=== PATIENT | male | born 1965 | race Caucasian/White ===

== ENCOUNTER 2016-03-18 18:32 | Inpatient (IN) | payer OTHER ==
--- NOTE | 2016-03-18 20:33 | PDOC ---
History of Present Illness - General History Source: Patient <Karri Musa - Last Filed: 03/18/16 20:48> - General History Source: Care Provider Exam Limitations: Clinical Condition - History of Present Illness Initial Comments: 03/18/16 20:56 The patient is a 50 year old male with a pertinent PMH of schizophrenia, bipolar , cleft palate who presents to the ED today with generalized weakness and s/p fall. As per periodontist, the patient is unable to stand and is frequently falling. His periodontist also reports the patient is sleeping more often than normal and that is appears to have less energy than normal. The patent resides at a skilled nursing. 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 His periodontist reports his primary care physician had him report to [facility] ED. Modern Greek Studies Professor also reports urinary incontinence. Allergies: NKDA PCP: Dr. 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, ORGANIC BRAIN DAMAGE, PARANOID SCHIZOPHRENIA) Seizures: No Thyroid Disease: No - Surgical History Abdominal Surgery: Yes (HERNIA REPAIR) Cardiac Surgery: No Lung Surgery: Yes (PNEUMOTHORAX) Neurologic Surgery: No - Psycho/Social/Smoking Cessation Hx Anxiety: No Suicidal Ideation: No Smoking History: Never smoked Have you smoked in the past 12 months: No If you are a former smoker, when did you quit?: 1999 Information on smoking cessation initiated: No Hx Alcohol Use: No Drug/Substance Use Hx: No Substance Use Type: None Hx Substance Use Treatment: No <Karri Musa - Last Filed: 03/18/16 20:48> <Mervat Franklin - Last Filed: 03/18/16 21:24> - Past Medical History Allergies/Adverse Reactions: Allergies Allergy/AdvReac Type Severity Reaction Status Date / Time No Known Allergies Allergy Verified 03/18/16 18:39 Home Medications: Ambulatory Orders Desmopressin Acetate 0.1 mg PO BID #60 tablet 07/26/14 Bupropion HCl [Wellbutrin Xl -] 150 mg PO DAILY 05/23/15 Clonazepam [Klonopin -] 0.5 mg PO HS PRN 05/23/15 Clozapine 400 mg PO BID 05/23/15 Ferrous Sulfate [Feosol] 325 mg PO BID 05/23/15 [place] Carbonate [Eskalith -] 300 mg PO DAILY 05/23/15 Mag Hydrox/Al Hydrox/Simeth [Antacid-[place]igas Liquid] 355 ml PO PRN 05/23/15 Megestrol Acetate Oral Susp [Megace Oral Suspension -] 800 mg PO DAILY 05/23/15 Valproate Sodium Liquid [Depakene Oral Solution -] 500 mg PO BID 05/23/15 Omeprazole [Prilosec (RX)] 40 mg PO BID #0 05/26/15 Review of Systems - Review of Systems Able to Perform ROS?: Yes Comments:: 03/18/16 20:58 *As per periodontist CONSTITUTIONAL: +Generalized weakness. Absent: fever, chills, diaphoresis, loss of appetite HEENT: Absent: rhinorrhea, nasal congestion, throat pain, throat swelling, difficulty swallowing, mouth swelling, ear pain, eye pain, visual Changes CARDIOVASCULAR: Absent: chest pain, syncope, palpitations, irregular heart rate, lightheadedness , peripheral edema RESPIRATORY: Absent: cough, shortness of breath, dyspnea with exertion, orthopnea, wheezing, stridor, hemoptysis GASTROINTESTINAL: +groin pain, abdominal distension. Absent: nausea, vomiting, diarrhea, constipation, melena, hematochezia GENITOURINARY: Absent: dysuria, frequency, urgency, hesitancy, hematuria, flank pain, genital pain MUSCULOSKELETAL: Absent: myalgia, arthralgia, joint swelling SKIN: Absent: rash, itching, pallor NEUROLOGIC: +Urinary incontinence. Absent: headache, focal weakness or paresthesias, dizziness, seizure, bowel incontinence PSYCHIATRIC: Absent: anxiety, depression, suicidal or homicidal ideation, hallucinations. 03/18/16 21:00 03/18/16 21:24 <Mervat Franklin - Last Filed: 03/18/16 21:24> *Physical Exam - Vital Signs Last Vital Signs Temp Pulse Resp BP Pulse Ox 98 F 79 18 114/57 98 03/18/16 18:38 03/18/16 18:38 03/18/16 18:38 03/18/16 18:38 03/18/16 18:38 <Karri Musa - Last Filed: 03/18/16 20:48> - Vital Signs Last Vital Signs Temp Pulse Resp BP Pulse Ox 98 F 79 18 114/57 98 03/18/16 18:38 03/18/16 18:38 03/18/16 18:38 03/18/16 18:38 03/18/16 18:38 - Physical Exam Comments: 03/18/16 21:00 GENERAL: Well developed, well nourished. Awake and alert. No acute distress. HEENT: Normocephalic, atraumatic. PERRLA, EOMI. No conjunctival pallor. Sclera are non- icteric. Moist mucous membranes. Oropharynx is clear. NECK: Supple. Full ROM. No JVD. Carotid pulses 2+ and symmetric, without bruits. No thyromegaly. No lymphadenopathy. CARDIOVASCULAR: Regular rate and rhythm. No murmurs, rubs, or gallops. Distal pulses are 2+ and symmetric. PULMONARY: No evidence of respiratory distress. Lungs clear to auscultation bilaterally. No wheezing, rales or rhonchi. ABDOMINAL: Right sided inguinal hernia nonreducible 8cm x 4cm. Soft. Non-tender. No rebound or guarding. Normoactive bowel sounds. MUSCULOSKELETAL Normal range of motion at all joints. No bony deformities or tenderness. No CVA tenderness. EXTREMITIES: No cyanosis. No clubbing. No edema. No calf tenderness. SKIN: Warm and dry. Normal capillary refill. No rashes. No jaundice. NEUROLOGICAL: AOx 2. Cranial nerves 2-12 intact. Answers simple questions appropriately. Moving all extremities. PSYCHIATRIC: Cooperative. Good eye contact. Appropriate mood and affect. <Mervat Franklin - Last Filed: 03/18/16 21:24> Heart Score/ECG Review - ECG Impressions Comment:: 03/18/16 21:21 NSR @ 84 bpm Nonspecific T wave abnormality Abnormal ECG <Mervat Franklin - Last Filed: 03/18/16 21:24> ED Treatment Course - LABORATORY CBC & Chemistry Diagram: 03/18/16 20:50 03/18/16 20:50 <Mervat Franklin - Last Filed: 03/18/16 21:24> Medical Decision Making - Medical Decision Making 03/18/16 20:48 Dr. Musa: The scribe's documentation has been prepared under my direction and personally reviewed by me in its entirery. I confirm that the note above accurately reflects all work, treatment, procedures, and medical decision making performed by me. <Karri Musa - Last Filed: 03/18/16 20:48> - Medical Decision Making 03/18/16 20:[address] Chana Veloz at 20:45. Awaiting call back. Dr. Veloz called back at 20:46 and patient's case was discussed. <Mervat Franklin - Last Filed: 03/18/16 21:24> *DC/Admit/Observation/Transfer - Discharge Dispostion Admit: Yes <Karri Musa - Last Filed: 03/18/16 20:48> - Attestations Scribe Attestion: 03/18/16 21:01 Documentation prepared by Mevrat Franklin, acting as medical sales consultant for Karri Musa MD/DO. <Mervat Franklin - Last Filed: 03/18/16 21:24> Diagnosis at time of Disposition: Mental retardation, Dehydration
[2016-03-18] MEDS ORDERED: SODIUM CHLORIDE 1,000 ML IV STA (20:36)
[2016-03-18 21:08] LABS: EOSINOPHIL 0.8 % (0-4.5); MCH 28.8 pg (25.7-33.7); MCHC 32.6 g/dl (32.0-35.9); MEAN CELL VOLUME 88.2 fl (80-96); MEAN PLT VOLUME 8.4 fl (7.5-11.1); NEUTROPHILS 63.6 % (42.8-82.8); PLATELET COUNT 247 K/MM3 (134-434); RDW 15.7 % (11.9-15.9); WHITE BLOOD COUNT 10.2 K/mm3 (4.0-10.0)
[2016-03-18 21:10] LABS: URINE APPEARANCE CLEAR; URINE BILIRUBIN NEGATIVE (NEGATIVE); URINE COLOR AMBER; URINE GLUCOSE (UA) NEGATIVE (NEGATIVE); URINE KETONE NEGATIVE (NEGATIVE); URINE LEUK ESTERASE NEGATIVE (NEGATIVE); URINE NITRITE NEGATIVE (NEGATIVE); URINE PROTEIN NEGATIVE (NEGATIVE); URINE UROBILINOGEN 2.0 E.U/dl E.U./dl (0.2-1.0)
[2016-03-18 21:11] LABS: URINE BLOOD 1+ (NEGATIVE)
[2016-03-18 21:12] LABS: URINE MUCUS MODERATE; URINE RBC 34 /hpf (0-3); URINE WBC 4 /hpf (3-5)
[2016-03-18 21:24] LABS: INR 1.14 (0.82-1.09); PROTHROMBIN TIME (PATIENT) 12.6 SEC (9.98-11.88)
[2016-03-18 21:37] LABS: ALBUMIN 3.1 g/dl (3.4-5.0); ANION GAP 8 (8-16); BILIRUBIN,TOTAL 0.5 mg/dL (0.2-1.0); CALCIUM 8.7 mg/dL (8.5-10.1); CO2 27 mmol/L (21-32); CREATININE 0.8 mg/dL (0.7-1.3); GLUCOSE,RANDOM 97 mg/dL (74-106); SGOT/AST 12 U/L (15-37); SGPT/ALT 13 U/L (12-78); TOT PROT 7.7 g/dl (6.4-8.2)
[2016-03-18 21:38] LABS: ALK PHOS 85 U/L (45-117)
[2016-03-18] MEDS ORDERED: LORAZEPAM CARPU-JECT 2 MG/ML DISP.SYRIN IVPUSH ONE (22:37)
[2016-03-18] MEDS ORDERED: LORAZEPAM CARPU-JECT 2 MG/ML DISP.SYRIN ONE (22:37)
[2016-03-19] MEDS ORDERED: clonazePAM 0.5 MG TABLET PO PRN (00:41)
--- NOTE | 2016-03-19 00:41 | HP ---
Admitting History and Physical - Admission Chief Complaint: Fatigue/unsteady gait History of Present Illness: Pt is a 50 y/o male w/ a schizophrenia/bipolar dz who lives in a [place] [facility]. Pt was seen in my office today bc of inability to stand for the past few days w / unsteady gait. It has also been noted that he has been more fatigued and sleeping more than usual. However they deny any fever/chills. Pt is also followed for b/l inguinal hernias. pt denies any abdominal pain/nausea/ vomiting. 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: Dementia, Seizure, Other (OBS) Pulmonary: Yes: Pneumonia Gastrointestinal: Yes: Constipation, GERD, Other (VIVAR'S, SEVERE ESOPHAGITIS DUE TO NON COMPLIANCE,HX CLEFT PALATE) Psych: Yes: Psychosis, Schizophrenia, Other (PARANOIA) - Past Surgical History Past Surgical History: Yes: Upper Endoscopy - Smoking History Smoking history: Never smoked Have you smoked in the past 12 months: No If you are a former smoker, when did you quit?: 1999 - Alcohol/Substance Use Hx Alcohol Use: No - Social History ADL: Support Services History of Recent Travel: No Home Medications - Allergies Allergies/Adverse Reactions: Allergies Allergy/AdvReac Type Severity Reaction Status Date / Time No Known Allergies Allergy Verified 03/18/16 18:39 - Home Medications Home Medications: Ambulatory Orders Desmopressin Acetate 0.1 mg PO BID #60 tablet 07/26/14 Bupropion HCl [Wellbutrin Xl -] 150 mg PO DAILY 05/23/15 Clonazepam [Klonopin -] 0.5 mg PO HS PRN 05/23/15 Clozapine 200 mg PO BID 05/23/15 Ferrous Sulfate [Feosol] 325 mg PO BID 05/23/15 [place] Carbonate [Eskalith -] 300 mg PO DAILY 05/23/15 Mag Hydrox/Al Hydrox/Simeth [Antacid-Antigas Liquid] 355 ml PO PRN 05/23/15 Megestrol Acetate Oral Susp [Megace Oral Suspension -] 800 mg PO DAILY 05/23/15 Valproate Sodium Liquid [Depakene Oral Solution -] 500 mg PO BID 05/23/15 Omeprazole [Prilosec (RX)] 40 mg PO BID #0 05/26/15 Bromocriptine Mesylate 2.5 tab PO HS 03/19/16 Loratadine 10 tab PO DAILY 03/19/16 Family Disease History - Family Disease History Family History: Unable to Obtain (Schizophrenia/bipolar) Review of Systems Unable to obtain ROS, reason: Schizophrenia/bipolar Physical Examination Vital Signs: Vital Signs Temperature 98 F 03/18/16 18:38 Pulse Rate 79 03/18/16 18:38 Respiratory Rate 18 03/18/16 18:38 Blood Pressure 114/57 03/18/16 18:38 O2 Sat by Pulse Oximetry (%) 98 03/18/16 18:38 HENT: Yes: WNL Neck: Yes: Supple Cardiovascular: Yes: WNL, Regular Rate and Rhythm Respiratory: Yes: WNL, Regular, CTA Bilaterally Gastrointestinal: Yes: Normal Bowel Sounds, Soft, Other ((+) b/l inguinal hernias. Hernia on RT nonreducible (-) tenderness) Musculoskeletal: Yes: WNL Extremities: Yes: WNL Edema: No Neurological: Yes: WNL, Alert, Oriented Problem List - Problems (1) Unsteady gait Assessment/Plan: Neuro eval R/O infectious etiology Start IV levaquin Code(s): R26.81 - UNSTEADINESS ON FEET (2) Inguinal hernia Assessment/Plan: As per surgery Code(s): K40.90 - UNIL INGUINAL HERNIA, W/O OBST OR GANGR, NOT SPCF RECUR (3) Schizophrenia Assessment/Plan: Cont meds Code(s): F20.9 - SCHIZOPHRENIA, UNSPECIFIED
[2016-03-19 04:51] VITALS: BMI 16.7
[2016-03-19 08:05] LABS: BASOPHIL 0.5 % (0-2.0); EOSINOPHIL 1.1 % (0-4.5); MCH 30.3 pg (25.7-33.7); MEAN PLT VOLUME 8.2 fl (7.5-11.1); NEUTROPHILS 67.1 % (42.8-82.8); PLATELET COUNT 238 K/MM3 (134-434); RDW 15.6 % (11.9-15.9); WHITE BLOOD COUNT 8.8 K/mm3 (4.0-10.0)
[2016-03-19 08:13] LABS: ALBUMIN 2.8 g/dl (3.4-5.0); ANION GAP 6 (8-16); BILIRUBIN,TOTAL 0.5 mg/dL (0.2-1.0); CALCIUM 8.9 mg/dL (8.5-10.1); CO2 28 mmol/L (21-32); CREATININE 0.7 mg/dL (0.7-1.3); GLUCOSE,RANDOM 95 mg/dL (74-106); SGOT/AST 8 U/L (15-37); TOT PROT 6.7 g/dl (6.4-8.2)
[2016-03-19 08:30] LABS: ALK PHOS 77 U/L (45-117); SGPT/ALT 11 U/L (12-78)
[2016-03-19] MEDS ORDERED: CLOZAPINE 200 MG PO SCH (10:00)
[2016-03-19] MEDS ORDERED: PT OWN MED DRAWER 7, Y5N ONE (11:49)
[2016-03-19] MEDS: LITHIUM CARBONATE 300 MG CAPSULE (FP) PO SCH (12:00)
[2016-03-19] MEDS: DESMOPRESSIN ACETATE 0.1 MG TABLET PO SCH ×2 (12:00→21:52)
[2016-03-19] MEDS: MEGESTROL ACETATE 400 MG/10 ML UNIT DOSE CUP PO SCH (12:00)
[2016-03-19] MEDS: VALPROATE SODIUM 250 MG/5 ML UNIT DOSE CUP PO SCH ×2 (12:00→21:52)
[2016-03-19] MEDS: PANTOPRAZOLE SOD 40 MG SUSPENSION PACKET PO SCH ×2 (12:00→21:51)
[2016-03-19] MEDS: FERROUS SO4 325 MG TABLET (FP) PO SCH ×2 (12:00→21:51)
[2016-03-19] MEDS: HEPARIN NA (PORCINE) 5,000 UNITS/ML 1ML VIAL SQ SCH ×2 (12:37→21:51)
--- NOTE | 2016-03-19 13:56 | EKG ---
Test Reason : Blood Pressure : / mmHG Vent. Rate : 084 BPM Atrial Rate : 084 BPM P-R Int : 142 ms QRS Dur : 088 ms QT Int : 342 ms P-R-T Axes : 068 070 056 degrees QTc Int : 404 ms NORMAL SINUS RHYTHM NONSPECIFIC T WAVE ABNORMALITY ABNORMAL ECG Confirmed by YARITZA ANTONIO MD ([id number]) on 03/19/2016 1:55:58 PM Referred By: Confirmed By:YARITZA ANTONIO MD
--- NOTE | 2016-03-19 15:09 | CONSULT ---
Consult Consult Specialty:: Surgery Reason for Consultation:: INGUINAL HERNIA - History of Present Illness Chief Complaint: RIGHT INGUINAL BULGE History of Present Illness: The patient is a 50 year old male with a pertinent PMH of schizophrenia, bipolar , cleft palate who presents to the ED today with generalized weakness and s/p fall. Patient is well known to the undersigned with history of partially reducible RIH containing bowel. Was advised previously to undergo elective RIH repair but refused. As per speed operator, the patient is unable to stand and is frequently falling. His speed operator also reports the patient is sleeping more often than normal and that is appears to have less energy than normal. The patent resides at a usp. Bone Worker also reports hernia in RLQ has increased and hernia in LLQ has decreased. His speed operator reports his primary care physician had him report to [facility] ED. Bone Worker also reports urinary incontinence. 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, Other (OBS) Pulmonary: Yes: Pneumonia Gastrointestinal: Yes: Constipation, GERD, Other (VIVAR'S, SEVERE ESOPHAGITIS DUE TO NON COMPLIANCE,HX CLEFT PALATE) Psych: Yes: Psychosis, Schizophrenia, Other (PARANOIA) - Past Surgical History Past Surgical History: Yes: Upper Endoscopy - Alcohol/Substance Use Hx Alcohol Use: No - Smoking History Smoking history: Never smoked Have you smoked in the past 12 months: No If you are a former smoker, when did you quit?: 1999 - Social History Usual Living Arrangement: Custodial ADL: Support Services History of Recent Travel: No Home Medications - Allergies Allergies/Adverse Reactions: Allergies Allergy/AdvReac Type Severity Reaction Status Date / Time No Known Allergies Allergy Verified 03/18/16 18:39 - Home Medications Home Medications: Ambulatory Orders Desmopressin Acetate 0.1 mg PO BID #60 tablet 07/26/14 Bupropion HCl [Wellbutrin Xl -] 150 mg PO DAILY 05/23/15 Clonazepam [Klonopin -] 0.5 mg PO HS PRN 05/23/15 Clozapine 200 mg PO BID 05/23/15 Ferrous Sulfate [Feosol] 325 mg PO BID 05/23/15 [place] Carbonate [Eskalith -] 300 mg PO DAILY 05/23/15 Mag Hydrox/Al Hydrox/Simeth [Antacid-Antigas Liquid] 355 ml PO PRN 05/23/15 Megestrol Acetate Oral Susp [Megace Oral Suspension -] 800 mg PO DAILY 05/23/15 Valproate Sodium Liquid [Depakene Oral Solution -] 500 mg PO BID 05/23/15 Omeprazole [Prilosec (RX)] 40 mg PO BID #0 05/26/15 Bromocriptine Mesylate 2.5 tab PO HS 03/19/16 Loratadine 10 tab PO DAILY 03/19/16 Physical Exam Vital Signs: Vital Signs Temperature 99.1 F 03/19/16 14:33 Pulse Rate 106 H 03/19/16 14:33 Respiratory Rate 20 03/19/16 14:33 Blood Pressure 132/66 03/19/16 14:33 O2 Sat by Pulse Oximetry (%) 98 03/19/16 00:43 Constitutional: Yes: No Distress Eyes: Yes: Conjunctiva Clear HENT: Yes: Normocephalic Neck: Yes: Supple Cardiovascular: Yes: Regular Rate and Rhythm Respiratory: Yes: CTA Bilaterally Gastrointestinal: Yes: Normal Bowel Sounds, Soft, Other (partially reducible right inguinal hernia, non-tender) ...Rectal Exam: Yes: Deferred Neurological: Yes: Alert Labs: CBC, BMP 03/19/16 06:00 03/19/16 06:00 Imaging - Results Cat Scan: Report Reviewed, Image Reviewed Problem List - Problems (1) Inguinal hernia Assessment/Plan: Inguinal hernia repair can be done during this current hospital stay if patient or HCP agrees, or as an outpatient procedure. Code(s): K40.90 - UNIL INGUINAL HERNIA, W/O OBST OR GANGR, NOT SPCF RECUR
[2016-03-19] MEDS ORDERED: cloZAPine 100 MG TABLET PO SCH (17:01)
[2016-03-19] MEDS ORDERED: cloZAPine 100 MG TABLET PO ONE (17:15)
[2016-03-19] MEDS ORDERED: ACETAMINOPHEN 325 MG TABLET (FP) PO PRN (18:09)
--- NOTE | 2016-03-19 19:25 | CONSULT ---
Consult Consult Specialty:: Neurology - History of Present Illness History of Present Illness: 50 yo with reported schizophrenia admitted due to lethargy. Today he is bright and alert and simply wants his rings and sweatpants he believes he left at the hospital during his last inpatient stay. 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, Other (OBS) Pulmonary: Yes: Pneumonia Gastrointestinal: Yes: Constipation, GERD, Other (VIVAR'S, SEVERE ESOPHAGITIS DUE TO NON COMPLIANCE,HX CLEFT PALATE) Psych: Yes: Psychosis, Schizophrenia, Other (PARANOIA) - Past Surgical History Past Surgical History: Yes: Upper Endoscopy - Alcohol/Substance Use Hx Alcohol Use: No - Smoking History Smoking history: Never smoked Have you smoked in the past 12 months: No If you are a former smoker, when did you quit?: 1999 - Social History Usual Living Arrangement: Shelter ADL: Support Services History of Recent Travel: No Home Medications - Allergies Allergies/Adverse Reactions: Allergies Allergy/AdvReac Type Severity Reaction Status Date / Time No Known Allergies Allergy Verified 03/18/16 18:39 - Home Medications Home Medications: Ambulatory Orders Desmopressin Acetate 0.1 mg PO BID #60 tablet 07/26/14 Bupropion HCl [Wellbutrin Xl -] 150 mg PO DAILY 05/23/15 Clonazepam [Klonopin -] 0.5 mg PO HS PRN 05/23/15 Clozapine 200 mg PO BID 05/23/15 Ferrous Sulfate [Feosol] 325 mg PO BID 05/23/15 [place] Carbonate [Eskalith -] 300 mg PO DAILY 05/23/15 Mag Hydrox/Al Hydrox/Simeth [Antacid-[place]igas Liquid] 355 ml PO PRN 05/23/15 Megestrol Acetate Oral Susp [Megace Oral Suspension -] 800 mg PO DAILY 05/23/15 Valproate Sodium Liquid [Depakene Oral Solution -] 500 mg PO BID 05/23/15 Omeprazole [Prilosec (RX)] 40 mg PO BID #0 05/26/15 Bromocriptine Mesylate 2.5 tab PO HS 03/19/16 Loratadine 10 tab PO DAILY 03/19/16 Physical Exam Vital Signs: Vital Signs Temperature 101.3 F H 03/19/16 16:54 Pulse Rate 102 H 03/19/16 16:54 Respiratory Rate 20 03/19/16 16:54 Blood Pressure 116/73 03/19/16 16:54 O2 Sat by Pulse Oximetry (%) 98 03/19/16 00:43 Constitutional: Yes: Well Nourished, No Distress, Calm HENT: Yes: Atraumatic Neck: Yes: Supple Cardiovascular: Yes: Regular Rate and Rhythm Respiratory: Yes: Regular Gastrointestinal: Yes: Soft Neurological: Yes: Alert, Cran Nerves II-XII Intact. No: Aphasia, Dysarthria, Facial Droop, Weakness (Unable to assess memory or sensory exam due to the patient's inablity to cooperate with the examination.) Psychiatric: Yes: Alert, Oriented Labs: CBC, BMP 03/19/16 06:00 03/19/16 06:00 Assessment/Plan Admitted with acute lethargy that appears to have resolved, there is no clinical evidence of a new neurological deficit, thus further neuro- investigative studies are not needed. P Continue supportive medical care and neurologically stable for discharge when medically indicated.
[2016-03-19] MEDS: LEVOFLOXACIN 500 MG IVPB 100 ML IVPB SCH (20:22)
[2016-03-19] MEDS: BROMOCRIPTINE MESYLATE 2.5 MG TABLET PO SCH (21:51)
[2016-03-20] MEDS ORDERED: PT OWN MED DRAWER 7, Y5N ONE (12:05)
[2016-03-20] MEDS: MEGESTROL ACETATE 400 MG/10 ML UNIT DOSE CUP PO SCH (12:09)
[2016-03-20] MEDS: LEVOFLOXACIN 500 MG IVPB 100 ML IVPB SCH (12:10)
[2016-03-20] MEDS: LITHIUM CARBONATE 300 MG CAPSULE (FP) PO SCH (12:12)
[2016-03-20] MEDS: FERROUS SO4 325 MG TABLET (FP) PO SCH ×2 (12:12→21:39)
[2016-03-20] MEDS: HEPARIN NA (PORCINE) 5,000 UNITS/ML 1ML VIAL SQ SCH ×2 (12:13→21:39)
[2016-03-20] MEDS: DESMOPRESSIN ACETATE 0.1 MG TABLET PO SCH ×2 (12:14→21:39)
[2016-03-20] MEDS: VALPROATE SODIUM 250 MG/5 ML UNIT DOSE CUP PO SCH ×2 (12:14→21:39)
[2016-03-20] MEDS: PANTOPRAZOLE SOD 40 MG SUSPENSION PACKET PO SCH ×2 (12:14→21:39)
--- NOTE | 2016-03-20 16:49 | PN ---
Progress Note, Physician History of Present Illness: 50 yo with reported schizophrenia admitted due to lethargy. Today he resting quietly in no acute distress with no acute neurological problems - Current Medication List Current Medications: Active Medications Acetaminophen (Tylenol -) 650 mg PO Q6H PRN PRN Reason: PAIN/FEVER OVER 100.5 Bromocriptine Mesylate (Parlodel -) 2.5 mg PO HS [facility] Last Admin: 03/19/16 21:51 Dose: 2.5 mg Bupropion HCl (Wellbutrin Xl -) 150 mg PO DAILY [facility] Last Admin: 03/20/16 12:13 Dose: 150 mg Clonazepam (Klonopin -) 0.5 mg PO HS PRN PRN Reason: ANXIETY Clozapine (Clozaril -) 200 mg PO BID [facility] Desmopressin Acetate (Ddavp -) 0.1 mg PO BID [facility] Last Admin: 03/20/16 12:14 Dose: 0.1 mg Ferrous Sulfate (Feosol -) 325 mg PO BID [facility] Last Admin: 03/20/16 12:12 Dose: 325 mg Heparin Sodium (Porcine) (Heparin -) 5,000 unit SQ BID [facility] Last Admin: 03/20/16 12:13 Dose: 5,000 unit Levofloxacin (Levaquin 500 Mg Premixed Ivpb -) 100 mls @ 100 mls/hr IVPB DAILY [facility] Last Admin: 03/20/16 12:10 Dose: 100 mls/hr [place] Carbonate (Eskalith -) 300 mg PO DAILY [facility] Last Admin: 03/20/16 12:12 Dose: 300 mg Megestrol Acetate (Megace Oral Suspension -) 800 mg PO DAILY [facility] Last Admin: 03/20/16 12:09 Dose: 800 mg Pantoprazole Sodium (Protonix Packets For Oral Suspension -) 40 mg PO BID [facility] Last Admin: 03/20/16 12:14 Dose: 40 mg Valproate Sodium (Depakene -) 500 mg PO BID [facility] Last Admin: 03/20/16 12:14 Dose: 500 mg - Objective Vital Signs: Vital Signs Temperature 98.0 F 03/20/16 14:00 Pulse Rate 80 03/20/16 14:00 Respiratory Rate 18 03/20/16 14:00 Blood Pressure 113/70 03/20/16 05:29 O2 Sat by Pulse Oximetry (%) 98 01/06/17 21:00 Neurological: Yes: WNL, Alert, Oriented, Cran Nerves II-XII Intact. No: Aphasia , Ataxia, Loss of Sensation, Weakness Labs: CBC, BMP 03/19/16 06:00 03/19/16 06:00 INR, PTT INR 1.14 (0.82-1.09) 03/18/16 20:50 Assessment/Plan Admitted with acute lethargy that appears to have resolved, there is no clinical evidence of a new neurological deficit, thus further neuro- investigative studies are not needed. P Continue supportive medical care and neurologically stable for discharge when medically indicated will follow intermittently please call if needed.
[2016-03-20] MEDS: guaiFENesin 200 MG/10 ML 10 ML UNIT-DOSE CUPS PO PRN (18:34)
[2016-03-20] MEDS: BROMOCRIPTINE MESYLATE 2.5 MG TABLET PO SCH (21:39)
--- NOTE | 2016-03-20 22:53 | PN ---
Progress Note, Physician History of Present Illness: No new complaints - Current Medication List Current Medications: Active Medications Acetaminophen (Tylenol -) 650 mg PO Q6H PRN PRN Reason: PAIN/FEVER OVER 100.5 Bromocriptine Mesylate (Parlodel -) 2.5 mg PO HS [facility] Last Admin: 03/20/16 21:39 Dose: 2.5 mg Bupropion HCl (Wellbutrin Xl -) 150 mg PO DAILY [facility] Last Admin: 03/20/16 12:13 Dose: 150 mg Clonazepam (Klonopin -) 0.5 mg PO HS PRN PRN Reason: ANXIETY Clozapine (Clozaril -) 200 mg PO BID [facility] Desmopressin Acetate (Ddavp -) 0.1 mg PO BID [facility] Last Admin: 03/20/16 21:39 Dose: 0.1 mg Ferrous Sulfate (Feosol -) 325 mg PO BID [facility] Last Admin: 03/20/16 21:39 Dose: 325 mg Guaifenesin (Robitussin -) 5 ml PO Q6H PRN Last Admin: 03/20/16 18:34 Dose: 5 ml Heparin Sodium (Porcine) (Heparin -) 5,000 unit SQ BID [facility] Last Admin: 03/20/16 21:39 Dose: 5,000 unit Levofloxacin (Levaquin 500 Mg Premixed Ivpb -) 100 mls @ 100 mls/hr IVPB DAILY [facility] Last Admin: 03/20/16 12:10 Dose: 100 mls/hr [place] Carbonate (Eskalith -) 300 mg PO DAILY [facility] Last Admin: 03/20/16 12:12 Dose: 300 mg Megestrol Acetate (Megace Oral Suspension -) 800 mg PO DAILY [facility] Last Admin: 03/20/16 12:09 Dose: 800 mg Pantoprazole Sodium (Protonix Packets For Oral Suspension -) 40 mg PO BID [facility] Last Admin: 03/20/16 21:39 Dose: 40 mg Valproate Sodium (Depakene -) 500 mg PO BID [facility] Last Admin: 03/20/16 21:39 Dose: 500 mg - Objective Vital Signs: Vital Signs Temperature 98.8 F 03/20/16 18:00 Pulse Rate 80 03/20/16 18:00 Respiratory Rate 20 03/20/16 18:00 Blood Pressure 112/66 03/20/16 18:00 O2 Sat by Pulse Oximetry (%) 98 03/20/16 10:00 Neck: Yes: Supple Cardiovascular: Yes: WNL, Regular Rate and Rhythm Respiratory: Yes: WNL, Regular, CTA Bilaterally Gastrointestinal: Yes: Normal Bowel Sounds, Other ((+) inguinal hernias) Labs: CBC, BMP 03/19/16 06:00 03/19/16 06:00 INR, PTT INR 1.14 (0.82-1.09) 03/18/16 20:50 Problem List - Problems (1) Unsteady gait Assessment/Plan: Carotid doppler showed stenosis Vascult consult?dehydration Cont IV fluids Cont empiric IV levaquin and follow cultures Code(s): R26.81 - UNSTEADINESS ON FEET (2) Inguinal hernia Assessment/Plan: Pt has a h/o chronic hernias and as per surgery no intervention at this time CT scan abd/pelvis showed fecal impaction Code(s): K40.90 - UNIL INGUINAL HERNIA, W/O OBST OR GANGR, NOT SPCF RECUR (3) Schizophrenia Code(s): F20.9 - SCHIZOPHRENIA, UNSPECIFIED
[2016-03-21] MEDS ORDERED: PT OWN MED DRAWER 7, Y5N ONE (09:38)
[2016-03-21] MEDS: DESMOPRESSIN ACETATE 0.1 MG TABLET PO SCH ×2 (09:50→21:16)
[2016-03-21] MEDS: FERROUS SO4 325 MG TABLET (FP) PO SCH ×2 (09:50→21:17)
[2016-03-21] MEDS: VALPROATE SODIUM 250 MG/5 ML UNIT DOSE CUP PO SCH ×2 (09:50→21:16)
[2016-03-21] MEDS: HEPARIN NA (PORCINE) 5,000 UNITS/ML 1ML VIAL SQ SCH ×2 (09:50→21:14)
[2016-03-21] MEDS: LITHIUM CARBONATE 300 MG CAPSULE (FP) PO SCH (09:50)
[2016-03-21] MEDS: MEGESTROL ACETATE 400 MG/10 ML UNIT DOSE CUP PO SCH (09:51)
[2016-03-21] MEDS: LEVOFLOXACIN 500 MG IVPB 100 ML IVPB SCH (09:51)
[2016-03-21] MEDS: PANTOPRAZOLE SOD 40 MG SUSPENSION PACKET PO SCH ×2 (09:51→21:23)
[2016-03-21] MEDS: guaiFENesin 200 MG/10 ML 10 ML UNIT-DOSE CUPS PO PRN (21:15)
[2016-03-21] MEDS: BROMOCRIPTINE MESYLATE 2.5 MG TABLET PO SCH (21:17)
--- NOTE | 2016-03-21 21:25 | PN ---
Progress Note, Physician History of Present Illness: No new complaints - Current Medication List Current Medications: Active Medications Acetaminophen (Tylenol -) 650 mg PO Q6H PRN PRN Reason: PAIN/FEVER OVER 100.5 Bromocriptine Mesylate (Parlodel -) 2.5 mg PO HS [facility] Last Admin: 03/21/16 21:17 Dose: 2.5 mg Bupropion HCl (Wellbutrin Xl -) 150 mg PO DAILY [facility] Last Admin: 03/21/16 09:50 Dose: 150 mg Clonazepam (Klonopin -) 0.5 mg PO HS PRN PRN Reason: ANXIETY Clozapine (Clozaril -) 200 mg PO BID [facility] Desmopressin Acetate (Ddavp -) 0.1 mg PO BID [facility] Last Admin: 03/21/16 21:16 Dose: 0.1 mg Ferrous Sulfate (Feosol -) 325 mg PO BID [facility] Last Admin: 03/21/16 21:17 Dose: 325 mg Guaifenesin (Robitussin -) 5 ml PO Q6H PRN Last Admin: 03/21/16 21:15 Dose: 5 ml Heparin Sodium (Porcine) (Heparin -) 5,000 unit SQ BID [facility] Last Admin: 03/21/16 21:14 Dose: 5,000 unit Levofloxacin (Levaquin 500 Mg Premixed Ivpb -) 100 mls @ 100 mls/hr IVPB DAILY [facility] Last Admin: 03/21/16 09:51 Dose: 100 mls/hr [place] Carbonate (Eskalith -) 300 mg PO DAILY [facility] Last Admin: 03/21/16 09:50 Dose: 300 mg Megestrol Acetate (Megace Oral Suspension -) 800 mg PO DAILY [facility] Last Admin: 03/21/16 09:51 Dose: 800 mg Pantoprazole Sodium (Protonix Packets For Oral Suspension -) 40 mg PO BID [facility] Last Admin: 03/21/16 21:23 Dose: 40 mg Valproate Sodium (Depakene -) 500 mg PO BID [facility] Last Admin: 03/21/16 21:16 Dose: 500 mg - Objective Vital Signs: Vital Signs Temperature 98.8 F 03/21/16 20:11 Pulse Rate 89 03/21/16 20:11 Respiratory Rate 20 03/21/16 20:11 Blood Pressure 120/63 03/21/16 20:11 O2 Sat by Pulse Oximetry (%) 99 03/21/16 10:00 Gastrointestinal: Yes: Normal Bowel Sounds, Other ((+) b/l inguinal hernia) Labs: CBC, BMP 03/19/16 06:00 03/19/16 06:00 INR, PTT INR 1.14 (0.82-1.09) 03/18/16 20:50 Problem List - Problems (1) Unsteady gait Assessment/Plan: PT eval in am May need STR placement Code(s): R26.81 - UNSTEADINESS ON FEET (2) Inguinal hernia Assessment/Plan: As per surgery No intervention at this time Pt has a h/o chronic hernia Code(s): K40.90 - UNIL INGUINAL HERNIA, W/O OBST OR GANGR, NOT SPCF RECUR (3) Schizophrenia Assessment/Plan: Cont meds Will get psych consult for clozapine Code(s): F20.9 - SCHIZOPHRENIA, UNSPECIFIED
[2016-03-22 08:05] LABS: BASOPHIL 0.3 % (0-2.0); EOSINOPHIL 1.2 % (0-4.5); MCHC 33.6 g/dl (32.0-35.9); MEAN CELL VOLUME 89.3 fl (80-96); MEAN PLT VOLUME 8.2 fl (7.5-11.1); NEUTROPHILS 58.8 % (42.8-82.8); PLATELET COUNT 308 K/MM3 (134-434); RDW 15.4 % (11.9-15.9); WHITE BLOOD COUNT 9.6 K/mm3 (4.0-10.0)
[2016-03-22 08:36] LABS: ALBUMIN 2.6 g/dl (3.4-5.0); ALK PHOS 75 U/L (45-117); ANION GAP 8 (8-16); BILIRUBIN,TOTAL 0.4 mg/dL (0.2-1.0); CALCIUM 9.2 mg/dL (8.5-10.1); CO2 27 mmol/L (21-32); CREATININE 0.8 mg/dL (0.7-1.3); GLUCOSE,RANDOM 86 mg/dL (74-106); SGOT/AST 18 U/L (15-37); SGPT/ALT 22 U/L (12-78); TOT PROT 7.2 g/dl (6.4-8.2)
[2016-03-22] MEDS ORDERED: PT OWN MED DRAWER 7, Y5N ONE ×2 (09:11→21:06)
[2016-03-22] MEDS: LEVOFLOXACIN 500 MG IVPB 100 ML IVPB SCH (10:25)
[2016-03-22] MEDS: LITHIUM CARBONATE 300 MG CAPSULE (FP) PO SCH (10:29)
[2016-03-22] MEDS: HEPARIN NA (PORCINE) 5,000 UNITS/ML 1ML VIAL SQ SCH ×2 (10:29→21:41)
[2016-03-22] MEDS: FERROUS SO4 325 MG TABLET (FP) PO SCH ×2 (10:29→21:41)
[2016-03-22] MEDS: VALPROATE SODIUM 250 MG/5 ML UNIT DOSE CUP PO SCH ×2 (10:29→21:41)
[2016-03-22] MEDS: DESMOPRESSIN ACETATE 0.1 MG TABLET PO SCH ×2 (10:30→21:40)
[2016-03-22] MEDS: PANTOPRAZOLE SOD 40 MG SUSPENSION PACKET PO SCH ×2 (10:31→21:42)
[2016-03-22] MEDS: MEGESTROL ACETATE 400 MG/10 ML UNIT DOSE CUP PO SCH (10:52)
--- NOTE | 2016-03-22 15:23 | CONSULT ---
Consult Consult Specialty:: infectious diseases Referred by:: Reason for Consultation:: cough,,leukocytosis.uti,infectious etiology for lethargy - History of Present Illness Chief Complaint: cough and h/o of fall,r.o infectious etiology for lethargy History of Present Illness: The patient is a 50 year old male with a pertinent PMH of schizophrenia, bipolar , cleft palate who presents to the ED today with generalized weakness and s/p fall. Patient is well known to the undersigned with history of partially reducible RIH containing bowel. Was advised previously to undergo elective RIH repair but refused. As per zone manager, the patient is unable to stand and is frequently falling. His zone manager also reports the patient is sleeping more often than normal and that is appears to have less energy than normal. The patent resides at a half-way. Can Capper also reports hernia in RLQ has increased and hernia in LLQ has decreased. His zone manager reports his primary care physician had him report to [facility] ED. Can Capper also reports urinary incontinence. 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: Yes: Dementia, Seizure, Other (OBS) Pulmonary: Yes: Pneumonia Gastrointestinal: Yes: Constipation, GERD, Other (VIVAR'S, SEVERE ESOPHAGITIS DUE TO NON COMPLIANCE,HX CLEFT PALATE) Psych: Yes: Psychosis, Schizophrenia, Other (PARANOIA) - Past Surgical History Past Surgical History: Yes: Upper Endoscopy - Alcohol/Substance Use Hx Alcohol Use: No - Smoking History Smoking history: Never smoked Have you smoked in the past 12 months: No If you are a former smoker, when did you quit?: 1999 - Social History Usual Living Arrangement: Senior Care ADL: Support Services History of Recent Travel: No Home Medications - Allergies Allergies/Adverse Reactions: Allergies Allergy/AdvReac Type Severity Reaction Status Date / Time No Known Allergies Allergy Verified 03/18/16 18:39 - Home Medications Home Medications: Ambulatory Orders Desmopressin Acetate 0.1 mg PO BID #60 tablet 07/26/14 Bupropion HCl [Wellbutrin Xl -] 150 mg PO DAILY 05/23/15 Clonazepam [Klonopin -] 0.5 mg PO HS PRN 05/23/15 Clozapine 200 mg PO BID 05/23/15 Ferrous Sulfate [Feosol] 325 mg PO BID 05/23/15 [place] Carbonate [Eskalith -] 300 mg PO DAILY 05/23/15 Mag Hydrox/Al Hydrox/Simeth [Antacid-[place] Liquid] 355 ml PO PRN 05/23/15 Megestrol Acetate Oral Susp [Megace Oral Suspension -] 800 mg PO DAILY 05/23/15 Valproate Sodium Liquid [Depakene Oral Solution -] 500 mg PO BID 05/23/15 Omeprazole [Prilosec (RX)] 40 mg PO BID #0 05/26/15 Bromocriptine Mesylate 2.5 tab PO HS 03/19/16 Loratadine 10 tab PO DAILY 03/19/16 Docusate Sodium [Colace -] 100 mg PO TID #90 capsule 03/22/16 Review of Systems - Review of Systems Constitutional: reports: Weakness Eyes: reports: No Symptoms HENT: reports: No Symptoms Neck: reports: No Symptoms Cardiovascular: reports: No Symptoms Respiratory: reports: Cough, Other Gastrointestinal: reports: No Symptoms Neurological: reports: No Symptoms Psychiatric: reports: No Symptoms Physical Exam Vital Signs: Vital Signs Temperature 97.7 F 03/22/16 10:00 Pulse Rate 89 03/22/16 10:00 Respiratory Rate 20 03/22/16 10:00 Blood Pressure 123/75 03/22/16 10:00 O2 Sat by Pulse Oximetry (%) 96 03/22/16 10:00 Constitutional: Yes: No Distress, Calm Cardiovascular: Yes: Regular Rate and Rhythm Respiratory: Yes: Poor Air Entry, Rhonchi Gastrointestinal: Yes: Normal Bowel Sounds, Soft Musculoskeletal: Yes: Other Extremities: Yes: Other Neurological: Yes: Alert, Other Psychiatric: Yes: Alert, Other Labs: CBC, BMP 03/22/16 06:05 03/22/16 06:05 Imaging - Results Chest X-ray: Report Reviewed, Image Reviewed Cat Scan: Report Reviewed, Image Reviewed Other: Report Reviewed, Image Reviewed Assessment/Plan 1) Unsteady gait Code(s): R26.81 - UNSTEADINESS ON FEET (2) Inguinal hernia Code(s): K40.90 - UNIL INGUINAL HERNIA, W/O OBST OR GANGR, NOT SPCF RECUR (3) Schizophrenia Code(s): F20.9 - SCHIZOPHRENIA, UNSPECIFIED i have evaluated the patient and looked at the patient from neuo point of view and reviewed there notes,looking at the patients condition he might have had a uti which did give rise to his condition plan agree with the starting of levaquin will complete the course of levaquin once patient stable will switch to oral
--- NOTE | 2016-03-22 17:35 | CONSULT ---
Consult - History of Present Illness History of Present Illness: 50 yo male with schizophrenia/bipolar disease admitted with weakness and inability to stand for the past few days. Carotid Duplex shows stenosis of left ICA. There is no history of TIA or stroke. 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: Dementia, Seizure, Other (OBS) Pulmonary: Yes: Pneumonia Gastrointestinal: Yes: Constipation, GERD, Other (VIVAR'S, SEVERE ESOPHAGITIS DUE TO NON COMPLIANCE,HX CLEFT PALATE) Psych: Yes: Psychosis, Schizophrenia, Other (PARANOIA) - Past Surgical History Past Surgical History: Yes: Upper Endoscopy - Alcohol/Substance Use Hx Alcohol Use: No - Smoking History Smoking history: Never smoked Have you smoked in the past 12 months: No If you are a former smoker, when did you quit?: 1999 - Social History Usual Living Arrangement: Correction ADL: Support Services History of Recent Travel: No Home Medications - Allergies Allergies/Adverse Reactions: Allergies Allergy/AdvReac Type Severity Reaction Status Date / Time No Known Allergies Allergy Verified 03/18/16 18:39 - Home Medications Home Medications: Ambulatory Orders Desmopressin Acetate 0.1 mg PO BID #60 tablet 07/26/14 Bupropion HCl [Wellbutrin Xl -] 150 mg PO DAILY 05/23/15 Clonazepam [Klonopin -] 0.5 mg PO HS PRN 05/23/15 Clozapine 200 mg PO BID 05/23/15 Ferrous Sulfate [Feosol] 325 mg PO BID 05/23/15 [place] Carbonate [Eskalith -] 300 mg PO DAILY 05/23/15 Mag Hydrox/Al Hydrox/Simeth [Antacid-Antigas Liquid] 355 ml PO PRN 05/23/15 Megestrol Acetate Oral Susp [Megace Oral Suspension -] 800 mg PO DAILY 05/23/15 Valproate Sodium Liquid [Depakene Oral Solution -] 500 mg PO BID 05/23/15 Omeprazole [Prilosec (RX)] 40 mg PO BID #0 05/26/15 Bromocriptine Mesylate 2.5 tab PO HS 03/19/16 Loratadine 10 tab PO DAILY 03/19/16 Docusate Sodium [Colace -] 100 mg PO TID #90 capsule 03/22/16 Physical Exam Vital Signs: Vital Signs Temperature 98.8 F 03/22/16 17:16 Pulse Rate 86 03/22/16 17:16 Respiratory Rate 20 03/22/16 17:16 Blood Pressure 110/47 03/22/16 17:16 O2 Sat by Pulse Oximetry (%) 96 03/22/16 10:00 Constitutional: Yes: No Distress, Anxious Eyes: Yes: EOM Intact HENT: Yes: Normocephalic, Other (Tongue dystonia) Neck: Yes: Supple Cardiovascular: Yes: Regular Rate and Rhythm Respiratory: Yes: Regular Gastrointestinal: Yes: Soft Neurological: Yes: Alert, Cran Nerves II-XII Intact. No: Facial Droop Labs: CBC, BMP 03/22/16 06:05 03/22/16 06:05 Imaging - Results Ultrasound: Image Reviewed (Left ICA with elevated PSV suggesting moderate stenosis 50-69%.) Problem List - Problems (1) Carotid stenosis, left Assessment/Plan: Asymptomatic left ICA stenosis <70%. Recommend medical therapy with aspirin and statin. Repeat Duplex in 6-12 months in accredited vascular lab. Code(s): I65.22 - OCCLUSION AND STENOSIS OF LEFT CAROTID ARTERY
[2016-03-22] MEDS: BROMOCRIPTINE MESYLATE 2.5 MG TABLET PO SCH (21:41)
--- NOTE | 2016-03-22 22:36 | PN ---
Progress Note, Physician - Current Medication List Current Medications: Active Medications Acetaminophen (Tylenol -) 650 mg PO Q6H PRN PRN Reason: PAIN/FEVER OVER 100.5 Bromocriptine Mesylate (Parlodel -) 2.5 mg PO HS [facility] Last Admin: 03/22/16 21:41 Dose: 2.5 mg Bupropion HCl (Wellbutrin Xl -) 150 mg PO DAILY [facility] Last Admin: 03/22/16 10:30 Dose: 150 mg Clozapine (Clozaril -) 200 mg PO BID [facility] Desmopressin Acetate (Ddavp -) 0.1 mg PO BID [facility] Last Admin: 03/22/16 21:40 Dose: 0.1 mg Ferrous Sulfate (Feosol -) 325 mg PO BID [facility] Last Admin: 03/22/16 21:41 Dose: 325 mg Guaifenesin (Robitussin -) 5 ml PO Q6H PRN Last Admin: 03/21/16 21:15 Dose: 5 ml Heparin Sodium (Porcine) (Heparin -) 5,000 unit SQ BID [facility] Last Admin: 03/22/16 21:41 Dose: 5,000 unit Levofloxacin (Levaquin 500 Mg Premixed Ivpb -) 100 mls @ 100 mls/hr IVPB DAILY [facility] Last Admin: 03/22/16 10:25 Dose: 100 mls/hr [place] Carbonate (Eskalith -) 300 mg PO DAILY [facility] Last Admin: 03/22/16 10:29 Dose: 300 mg Megestrol Acetate (Megace Oral Suspension -) 800 mg PO DAILY [facility] Last Admin: 03/22/16 10:52 Dose: 800 mg Pantoprazole Sodium (Protonix Packets For Oral Suspension -) 40 mg PO BID [facility] Last Admin: 03/22/16 21:42 Dose: 40 mg Valproate Sodium (Depakene -) 500 mg PO BID [facility] Last Admin: 03/22/16 21:41 Dose: 500 mg - Objective Vital Signs: Vital Signs Temperature 98.6 F 03/22/16 22:00 Pulse Rate 81 03/22/16 22:00 Respiratory Rate 20 03/22/16 22:00 Blood Pressure 115/72 03/22/16 22:00 O2 Sat by Pulse Oximetry (%) 96 03/22/16 10:00 Labs: CBC, BMP 03/22/16 06:05 03/22/16 06:05 INR, PTT INR 1.14 (0.82-1.09) 03/18/16 20:50 Problem List - Problems (1) Unsteady gait Code(s): R26.81 - UNSTEADINESS ON FEET (2) Inguinal hernia Code(s): K40.90 - UNIL INGUINAL HERNIA, W/O OBST OR GANGR, NOT SPCF RECUR (3) Schizophrenia Code(s): F20.9 - SCHIZOPHRENIA, UNSPECIFIED
[2016-03-23] MEDS ORDERED: PT OWN MED DRAWER 7, Y5N ONE (09:43)
[2016-03-23] MEDS: HEPARIN NA (PORCINE) 5,000 UNITS/ML 1ML VIAL SQ SCH (10:00)
[2016-03-23] MEDS: LEVOFLOXACIN 500 MG IVPB 100 ML IVPB SCH (10:00)
[2016-03-23] MEDS: DESMOPRESSIN ACETATE 0.1 MG TABLET PO SCH (10:01)
[2016-03-23] MEDS: VALPROATE SODIUM 250 MG/5 ML UNIT DOSE CUP PO SCH (10:01)
[2016-03-23] MEDS: FERROUS SO4 325 MG TABLET (FP) PO SCH (10:01)
[2016-03-23] MEDS: LITHIUM CARBONATE 300 MG CAPSULE (FP) PO SCH (10:01)
[2016-03-23] MEDS: MEGESTROL ACETATE 400 MG/10 ML UNIT DOSE CUP PO SCH (10:02)
[2016-03-23] MEDS: PANTOPRAZOLE SOD 40 MG SUSPENSION PACKET PO SCH (10:02)
--- NOTE | 2016-03-23 10:59 | DS ---
Physical Examination Vital Signs: Vital Signs Temperature 98.4 F 03/23/16 05:51 Pulse Rate 80 03/23/16 05:51 Respiratory Rate 20 03/23/16 05:51 Blood Pressure 114/67 03/23/16 05:51 O2 Sat by Pulse Oximetry (%) 98 03/22/16 22:00 Constitutional: Yes: No Distress Neck: Yes: Supple Cardiovascular: Yes: WNL, Regular Rate and Rhythm Respiratory: Yes: WNL, Regular, CTA Bilaterally Gastrointestinal: Yes: Other (B/B inguinal hernias) Labs: CBC, BMP 03/22/16 06:05 03/22/16 06:05 Discharge Summary Reason For Visit: MENTAL RETARDATION/ DEHYDRATION Current Active Problems Carotid stenosis, left (Acute) Dehydration (Acute) Inguinal hernia (Acute) Mental retardation (Acute) Unsteady gait (Acute) Condition: Fair - Instructions Diet, Activity, Other Instructions: 2 gram sodium diet Referrals: Hiren Pike MD [Staff Physician] - Disposition: HOME - Home Medications Comprehensive Discharge Medication List: Ambulatory Orders Desmopressin Acetate 0.1 mg PO BID #60 tablet 07/26/14 Bupropion HCl [Wellbutrin Xl -] 150 mg PO DAILY 05/23/15 Clonazepam [Klonopin -] 0.5 mg PO HS PRN 05/23/15 Clozapine 200 mg PO BID 05/23/15 Ferrous Sulfate [Feosol] 325 mg PO BID 05/23/15 [place] Carbonate [Eskalith -] 300 mg PO DAILY 05/23/15 Mag Hydrox/Al Hydrox/Simeth [Antacid-[place] Liquid] 355 ml PO PRN 05/23/15 Megestrol Acetate Oral Susp [Megace Oral Suspension -] 800 mg PO DAILY 05/23/15 Valproate Sodium Liquid [Depakene Oral Solution -] 500 mg PO BID 05/23/15 Omeprazole [Prilosec (RX)] 40 mg PO BID #0 05/26/15 Bromocriptine Mesylate 2.5 tab PO HS 03/19/16 Loratadine 10 tab PO DAILY 03/19/16 Docusate Sodium [Colace -] 100 mg PO TID #90 capsule 03/22/16 Aspirin [ASA -] 81 mg PO DAILY #30 tab.chew 03/23/16 Levofloxacin [Levaquin] 500 mg PO DAILY #10 tablet 03/23/16 Simvastatin [Zocor -] 20 mg PO HS #30 tablet 03/23/16
--- NOTE | 2016-03-23 13:34 | PN ---
Progress Note, Physician History of Present Illness: stable no new events - Current Medication List Current Medications: Active Medications Acetaminophen (Tylenol -) 650 mg PO Q6H PRN PRN Reason: PAIN/FEVER OVER 100.5 Bromocriptine Mesylate (Parlodel -) 2.5 mg PO HS [facility] Last Admin: 03/22/16 21:41 Dose: 2.5 mg Bupropion HCl (Wellbutrin Xl -) 150 mg PO DAILY [facility] Last Admin: 03/23/16 10:01 Dose: 150 mg Clozapine (Clozaril -) 200 mg PO BID [facility] Desmopressin Acetate (Ddavp -) 0.1 mg PO BID [facility] Last Admin: 03/23/16 10:01 Dose: 0.1 mg Ferrous Sulfate (Feosol -) 325 mg PO BID [facility] Last Admin: 03/23/16 10:01 Dose: 325 mg Guaifenesin (Robitussin -) 5 ml PO Q6H PRN Last Admin: 03/21/16 21:15 Dose: 5 ml Heparin Sodium (Porcine) (Heparin -) 5,000 unit SQ BID [facility] Last Admin: 03/23/16 10:00 Dose: 5,000 unit Levofloxacin (Levaquin 500 Mg Premixed Ivpb -) 100 mls @ 100 mls/hr IVPB DAILY [facility] Last Admin: 03/23/16 10:00 Dose: 100 mls/hr [place] Carbonate (Eskalith -) 300 mg PO DAILY [facility] Last Admin: 03/23/16 10:01 Dose: 300 mg Megestrol Acetate (Megace Oral Suspension -) 800 mg PO DAILY [facility] Last Admin: 03/23/16 10:02 Dose: 800 mg Pantoprazole Sodium (Protonix Packets For Oral Suspension -) 40 mg PO BID [facility] Last Admin: 03/23/16 10:02 Dose: Not Given Valproate Sodium (Depakene -) 500 mg PO BID [facility] Last Admin: 03/23/16 10:01 Dose: 500 mg - Objective Vital Signs: Vital Signs Temperature 98.4 F 03/23/16 05:51 Pulse Rate 80 03/23/16 05:51 Respiratory Rate 20 03/23/16 05:51 Blood Pressure 114/67 03/23/16 05:51 O2 Sat by Pulse Oximetry (%) 98 03/22/16 22:00 Constitutional: Yes: No Distress, Calm Cardiovascular: Yes: Regular Rate and Rhythm Respiratory: Yes: Regular, CTA Bilaterally Gastrointestinal: Yes: Normal Bowel Sounds, Soft Musculoskeletal: Yes: WNL Extremities: Yes: WNL Neurological: Yes: Alert, Other Psychiatric: Yes: Alert Labs: CBC, BMP 03/22/16 06:05 03/22/16 06:05 INR, PTT INR 1.14 (0.82-1.09) 03/18/16 20:50 Assessment/Plan 1) Unsteady gait Code(s): R26.81 - UNSTEADINESS ON FEET (2) Inguinal hernia Code(s): K40.90 - UNIL INGUINAL HERNIA, W/O OBST OR GANGR, NOT SPCF RECUR (3) Schizophrenia Code(s): F20.9 - SCHIZOPHRENIA, UNSPECIFIED i have evaluated the patient and looked at the patient from neuo point of view and reviewed there notes,looking at the patients condition he might have had a uti which did give rise to his condition plan continue current mgmt rest as per medicine finish course of vianey
[2016-03-23 15:11] VITALS: BP 111/70; PULSE 79; TEMP 98.9
== END 2016-03-23 15:56 | disposition home or self-care (01) | DRG 690 ==
LOC: JER 18:32 → JERBED 22:23 → UNDOADMIN 22:23 → JERBED 23:30 → J7W 23:30 → JERBED 03-19 00:51
PROVIDERS: ADMIT Internal Medicine; ATTEND Internal Medicine
DX: N39.0 Urinary tract infection, site not specified (principal); F20.0 Paranoid schizophrenia; E86.0 Dehydration; F79 Unspecified intellectual disabilities; F31.9 Bipolar disorder, unspecified; K21.9 Gastro-esophageal reflux disease without esophagitis; I34.1 Nonrheumatic mitral (valve) prolapse; K22.70 Barrett's esophagus without dysplasia; K40.20 Bilateral inguinal hernia, without obstruction or gangrene, not specified as recurrent; R26.81 Unsteadiness on feet; R53.83 Other fatigue; I65.22 Occlusion and stenosis of left carotid artery; R53.1 Weakness
CPT/HCPCS: 36415; 70450-TC; 70496-TC; 71010-TC; 74177-TC; 80053; 81003; 81015; 83605; 83735; 85025; 85610; 86850; 86900; 86901; 87040; 87086; 93005; 93010; 93880-TC; 97116-GP; 97163-GP; 99282-25; J1644

== ENCOUNTER 2016-03-31 16:53 | Inpatient (IN) | payer OTHER ==
[2016-03-31 17:01] VITALS: BMI 17.0
[2016-03-31] MEDS ORDERED: morphine CARPU-JECT 4 MG/1 ML DISP.SYRIN IVPUSH ONE (18:12)
[2016-03-31] MEDS ORDERED: ONDANSETRON 4 MG/2 ML VIAL IVPB ONE (18:14)
[2016-03-31] MEDS ORDERED: SODIUM CHLORIDE 1,000 ML IV STA (18:14)
--- NOTE | 2016-03-31 18:16 | PDOC ---
History of Present Illness - General History Source: Patient Exam Limitations: No Limitations - History of Present Illness Initial Comments: 03/31/16 18:23 The patient is a 50 year old male presenting with an aide, with a significant past medical history of mild MR, schizophrenia, bipolar, cleft palate, organic brain bleed, mitral and tricuspid valve prolapse, GERD, bilateral renal cysts and siddiqui's esophagus, who presents to the emergency department with right sided abdominal pain due to a right inguinal hernia. He notes that he has had this hernia for a long time but 3 weeks ago the hernia ballooned. He also reports decrease appetite, mild nausea and change in bowel movements. He states that the pain is ranging from moderate to severe, without radiation. The patient denies chest pain, shortness of breath, headache and dizziness. Denies fever, chills, vomit, diarrhea and constipation. Denies dysuria, frequency, urgency and hematuria. Allergies: None Past surgical history: Hernia Repair and pneumothorax Social history: No alcohol, tobacco or drug use reported PMD - Dr. Hiren Pike <Karri Solis - Last Filed: 04/01/16 00:58> - General History Source: Patient Exam Limitations: No Limitations <Jorge Gregorio - Last Filed: 04/05/16 07:39> - General Chief Complaint: Pain Stated Complaint: POSSIBLE HERNIA Time Seen by Provider: 03/31/16 17:59 Past History <Karri Solis - Last Filed: 04/01/16 00:58> - Past Medical History Anemia: No Asthma: No Cancer: No Cardiac Disorders: Yes (MITRAL & TRICUSPID VALVE PROLAPSE) CVA: No COPD: No CHF: No Dementia: No Diabetes: No GI Disorders: Yes (GERD, SIDDIQUI'S ESOPHAGUS,) Disorders: Yes (B/L RENAL CYSTS.) HTN: No Hypercholesterolemia: No Liver Disease: No Psychiatric Problems: Yes (SCHIZO,) Seizures: No Thyroid Disease: No Other medical history: MILD MR - Surgical History Abdominal Surgery: Yes (HERNIA REPAIR) Cardiac Surgery: No Lung Surgery: Yes (PNEUMOTHORAX) Neurologic Surgery: No - Psycho/Social/Smoking Cessation Hx Anxiety: No Suicidal Ideation: No Smoking History: Never smoked Have you smoked in the past 12 months: No If you are a former smoker, when did you quit?: 1999 Hx Alcohol Use: No Drug/Substance Use Hx: No Substance Use Type: None Hx Substance Use Treatment: No <Jorge Gregorio - Last Filed: 04/05/16 07:39> - Past Medical History Allergies/Adverse Reactions: Allergies Allergy/AdvReac Type Severity Reaction Status Date / Time No Known Allergies Allergy Verified 03/31/16 17:00 Home Medications: Ambulatory Orders Desmopressin Acetate 0.1 mg PO BID #60 tablet 07/26/14 Bupropion HCl [Wellbutrin Xl -] 150 mg PO DAILY 05/23/15 Clonazepam [Klonopin -] 0.5 mg PO HS PRN 05/23/15 Clozapine 200 mg PO BID 05/23/15 Ferrous Sulfate [Feosol] 325 mg PO BID 05/23/15 [place] Carbonate [Eskalith -] 300 mg PO DAILY 05/23/15 Mag Hydrox/Al Hydrox/Simeth [Antacid-Antigas Liquid] 355 ml PO PRN 05/23/15 Megestrol Acetate Oral Susp [Megace Oral Suspension -] 800 mg PO DAILY 05/23/15 Valproate Sodium Liquid [Depakene Oral Solution -] 500 mg PO BID 05/23/15 Omeprazole [Prilosec (RX)] 40 mg PO BID #0 05/26/15 Bromocriptine Mesylate 2.5 tab PO HS 03/19/16 Loratadine 10 tab PO DAILY 03/19/16 Docusate Sodium [Colace -] 100 mg PO TID #90 capsule 03/22/16 Aspirin [ASA -] 81 mg PO DAILY #30 tab.chew 03/23/16 Levofloxacin [Levaquin] 500 mg PO DAILY #10 tablet 03/23/16 Simvastatin [Zocor -] 20 mg PO HS #30 tablet 03/23/16 Review of Systems - Review of Systems Able to Perform ROS?: Yes Comments:: 03/31/16 18:23 GENERAL/CONSTITUTIONAL: +Decrease in appetite. No fever or chills. No weakness. HEAD, EYES, EARS, NOSE AND THROAT: No change in vision. No ear pain or discharge. No sore throat. CARDIOVASCULAR: No chest pain or shortness of breath RESPIRATORY: No cough, wheezing, or hemoptysis. GASTROINTESTINAL: +Abdominal pain due to hernia, nausea. No vomiting, diarrhea or constipation. GENITOURINARY: No dysuria, frequency, or change in urination. MUSCULOSKELETAL: No joint or muscle swelling or pain. No neck or back pain. SKIN: No rash NEUROLOGIC: No headache, vertigo, loss of consciousness, or change in strength/ sensation. ENDOCRINE: No increased thirst. No abnormal weight change HEMATOLOGIC/LYMPHATIC: No anemia, easy bleeding, or history of blood clots. ALLERGIC/IMMUNOLOGIC: No hives or skin allergy. <Karri Solis - Last Filed: 04/01/16 00:58> *Physical Exam - Vital Signs Last Vital Signs Temp Pulse Resp BP Pulse Ox 97.5 F L 98 H 20 133/84 98 03/31/16 16:57 03/31/16 16:57 03/31/16 16:57 03/31/16 16:57 03/31/16 16:57 - Physical Exam Comments: 03/31/16 18:23 GENERAL: Awake, alert, and fully oriented, in no acute distress HEAD: No signs of trauma, normocephalic, atraumatic EYES: PERRLA, EOMI, sclera anicteric, conjunctiva clear ENT: Auricles normal inspection, hearing grossly normal, nares patent, oropharynx clear without exudates. Moist mucosa NECK: Normal ROM, supple, no lymphadenopathy, JVD, or masses LUNGS: No distress, speaks full sentences, clear to auscultation bilaterally HEART: Regular rate and rhythm, normal S1 and S2, no murmurs, rubs or gallops, peripheral pulses normal and equal bilaterally. ABDOMEN: +5 by 5 cm right inguinal hernia, non reducible. Soft, normoactive bowel sounds. No guarding, no rebound. EXTREMITIES: Normal inspection, Normal range of motion, no edema. No clubbing or cyanosis. NEUROLOGICAL: Cranial nerves II through XII grossly intact. Normal speech, normal gait, no focal sensorimotor deficits SKIN: Warm, Dry, normal turgor, no rashes or lesions noted. <Karri Solis - Last Filed: 04/01/16 00:58> - Vital Signs Last Vital Signs Temp Pulse Resp BP Pulse Ox 97.5 F L 98 H 20 133/84 98 03/31/16 16:57 03/31/16 16:57 03/31/16 16:57 03/31/16 16:57 03/31/16 16:57 <Jorge Gregorio - Last Filed: 04/05/16 07:39> Heart Score/ECG Review #1 ECG reviewed & interpreted by me at: 19:40 03/31/16 19:52 NSR 74, no std/ozzy, T wave flat aVL, normal axis, normal intervals, QTC 419 msec <Jorge Gregorio - Last Filed: 04/05/16 07:39> ED Treatment Course - LABORATORY CBC & Chemistry Diagram: 03/31/16 19:30 03/31/16 19:30 - RADIOLOGY Radiograph Interpretation: 03/31/16 21:56 Chest X-Ray Reviewed by: Dr. Robles Calixto Impression: Chronic interstitial lung disease. Unchanged since the prior exam. Superimposed infiltrates cannot be excluded. However, no airspace disease is present. CT abdomen and pelvis with contrast Reviewed by: Dr. Christen Key Impression: Bilateral renal masses compatible with cysts. Small left lower lobe infiltrate most resembles atelectasis. A right inguinal hernia contains the cecum by do not seen definite evidence of incarceration or bowel obstruction. The rectum is dilated with fluid feces concerning for fecal impaction. Correlate clinically. No other findings are seen. <Karri Solis - Last Filed: 04/01/16 00:58> - LABORATORY CBC & Chemistry Diagram: 04/05/16 05:35 04/03/16 07:30 - RADIOLOGY Radiology Studies Ordered: Category Date Time Status ABDOMEN & PELVIS CT WITH CONTR [CT] Stat CT Scan 03/31/16 18:12 Ordered CHEST X-RAY PORTABLE* [RAD] Stat Radiology 03/31/16 18:12 Ordered <Jorge Gregorio - Last Filed: 04/05/16 07:39> Medical Decision Making - Medical Decision Making 04/01/16 00:58 Dr. Abbe Andrew was consulted regarding the patient at 12:03am [phone] Dr. Chana Veloz was called regarding the patient at 12:07am Dr. Veloz was consulted regarding the patient at 12:50am [phone] <Karri Solis - Last Filed: 04/01/16 00:58> - Medical Decision Making 03/31/16 18:15 A portion of this note was documented by scribe services under my direction. I have reviewed the details of the note, within reason, and agree with the documentation with the following case summary and management plan written by me. Patient treated in the ED. Nursing notes are reviewed and incorporated into the medical decision-making. Vital signs reviewed. Peripheral IV access obtained by the nurse, laboratory studies are drawn and sent, reviewed and interpreted by myself. Vital Signs Temp Pulse Resp BP Pulse Ox 97.5 F L 98 H 20 133/84 98 03/31/16 16:57 03/31/16 16:57 03/31/16 16:57 03/31/16 16:57 03/31/16 16:57 50-year-old male with past medical history of mild mental retardation, mitral and tricuspid valve prolapse, schizophrenia, chronic sinusitis, paranoia, bilateral renal cysts, acid reflux presents to the immersed from for right inguinal hernia for 3 weeks. Patient noted ballooning. He had not improved over the last 3 weeks. Denies any nausea or vomiting but reports decreased appetite and decreased stooling. Patient saw his private care physician today Dr. Pike was sent the patient to the ER for further evaluation. Patient as a no resides in [facility]. Will obtain labs, CT scan of abdomen and pelvis. The hernia is nonreducible. 04/01/16 00:48 Chest xray reviewed. Chronic interstitial lung disease. CBC, BMP 03/31/16 19:30 03/31/16 19:30 CMP Sodium 137 mmol/L (136-145) 03/31/16 19:30 Potassium 4.2 mmol/L (3.5-5.1) 03/31/16 19:30 Chloride 103 mmol/L (98-107) 03/31/16 19:30 Carbon Dioxide 26 mmol/L (21-32) 03/31/16 19:30 Anion Gap 8 (8-16) 03/31/16 19:30 BUN 10 mg/dL (7-18) D 03/31/16 19:30 Creatinine 0.7 mg/dL (0.7-1.3) 03/31/16 19:30 Creat Clearance w eGFR > 60 (>60) 03/31/16 19:30 Random Glucose 95 mg/dL (74-106) 03/31/16 19:30 Lactic Acid 1.098 mmol/L (0.4-2.0) 03/31/16 19:30 Calcium 8.4 mg/dL (8.5-10.1) L 03/31/16 19:30 Total Bilirubin 0.2 mg/dL (0.2-1.0) D 03/31/16 19:30 AST 12 U/L (15-37) L D 03/31/16 19:30 ALT 23 U/L (12-78) 03/31/16 19:30 Alkaline Phosphatase 80 U/L (45-117) 03/31/16 19:30 Total Protein 7.2 g/dl (6.4-8.2) 03/31/16 19:30 Albumin 2.7 g/dl (3.4-5.0) L 03/31/16 19:30 CT scan of abdomen and pelvis reviewed. R inguinal hernia with obstruction as per imaging senior instructional designer. However, normal WBC and negative lactic acid. NGT ordered. Case discussed with Dr. Andrew. States patient will go to the OR in the morning. Case discussed with Dr. Veloz. She accepts the patient to med/surg admission. Case discussed in detail with admitting physician including history, physical exam and ancillary studies. Admitting physician has assumed care for the patient, will follow all pending diagnostics and will complete the evaluation and treatment. <Jorge Gregorio - Last Filed: 04/05/16 07:39> *DC/Admit/Observation/Transfer - Attestations Scribe Attestion: 03/31/16 18:24 Documentation prepared by Karri Solis, acting as medical laboratory technologist for Jorge Gregorio MD. <Karri Solis - Last Filed: 04/01/16 00:58> - Discharge Dispostion Admit: Yes <Jorge Gregorio - Last Filed: 04/05/16 07:39> Diagnosis at time of Disposition: SBO (small bowel obstruction) - Referrals
[2016-03-31] MEDS ORDERED: morphine CARPU-JECT 4 MG/1 ML DISP.SYRIN ONE (19:38)
[2016-03-31] MEDS ORDERED: ONDANSETRON 4 MG/2 ML VIAL ONE (19:38)
[2016-03-31 19:41] LABS: BASOPHIL 0.6 % (0-2.0); EOSINOPHIL 1.4 % (0-4.5); MCH 29.3 pg (25.7-33.7); MCHC 33.1 g/dl (32.0-35.9); MEAN CELL VOLUME 88.5 fl (80-96); MEAN PLT VOLUME 7.3 fl (7.5-11.1); NEUTROPHILS 56.5 % (42.8-82.8); PLATELET COUNT 397 K/MM3 (134-434); RDW 14.9 % (11.9-15.9); WHITE BLOOD COUNT 8.1 K/mm3 (4.0-10.0)
[2016-03-31 20:21] LABS: INR 1.2 (0.82-1.09); PROTHROMBIN TIME (PATIENT) 13.2 SEC (9.98-11.88)
[2016-03-31 20:23] LABS: ACTIVATED PTT 39.9 SECONDS (26.9-34.4)
[2016-03-31 20:28] LABS: ALBUMIN 2.7 g/dl (3.4-5.0); ALK PHOS 80 U/L (45-117); ANION GAP 8 (8-16); BILIRUBIN,TOTAL 0.2 mg/dL (0.2-1.0); CALCIUM 8.4 mg/dL (8.5-10.1); CO2 26 mmol/L (21-32); CREATININE 0.7 mg/dL (0.7-1.3); GLUCOSE,RANDOM 95 mg/dL (74-106); SGOT/AST 12 U/L (15-37); SGPT/ALT 23 U/L (12-78); TOT PROT 7.2 g/dl (6.4-8.2)
[2016-03-31] MEDS ORDERED: cloZAPine 25 MG TABLET PO ONE (21:06)
[2016-04-01] MEDS ORDERED: morphine CARPU-JECT 4 MG/1 ML DISP.SYRIN IVPUSH ONE (00:25)
[2016-04-01] MEDS ORDERED: morphine CARPU-JECT 4 MG/1 ML DISP.SYRIN ONE (00:31)
--- NOTE | 2016-04-01 06:16 | CONSULT ---
Consult Consult Specialty:: Surgery Referred by:: Dr. Veloz Reason for Consultation:: small bowel obstruction, right inguinal hernia - History of Present Illness Chief Complaint: Abdominal pain History of Present Illness: 50 y.o. male with history of chronically incarcerated right inguinal hernia containing cecum and terminal ileum admitted for abdominal and right inguinal pain. Patient denies nausea and vomiting. CT scan of the abdomen now shows SBO. 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: Yes: Dementia, Seizure, Other (OBS) Pulmonary: Yes: Pneumonia Gastrointestinal: Yes: Constipation, GERD, Other (VIVAR'S, SEVERE ESOPHAGITIS DUE TO NON COMPLIANCE,HX CLEFT PALATE) Psych: Yes: Psychosis, Schizophrenia, Other (PARANOIA) - Past Surgical History Past Surgical History: Yes: Upper Endoscopy - Alcohol/Substance Use Hx Alcohol Use: No - Smoking History Smoking history: Never smoked Have you smoked in the past 12 months: No If you are a former smoker, when did you quit?: 1999 - Social History Usual Living Arrangement: [facility]dc ADL: Support Services History of Recent Travel: No Home Medications - Allergies Allergies/Adverse Reactions: Allergies Allergy/AdvReac Type Severity Reaction Status Date / Time No Known Allergies Allergy Verified 03/31/16 17:00 - Home Medications Home Medications: Ambulatory Orders Desmopressin Acetate 0.1 mg PO BID #60 tablet 07/26/14 Bupropion HCl [Wellbutrin Xl -] 150 mg PO DAILY 05/23/15 Clonazepam [Klonopin -] 0.5 mg PO HS PRN 05/23/15 Clozapine 200 mg PO BID 05/23/15 Ferrous Sulfate [Feosol] 325 mg PO BID 05/23/15 [place] Carbonate [Eskalith -] 300 mg PO DAILY 05/23/15 Mag Hydrox/Al Hydrox/Simeth [Antacid-[place] Liquid] 355 ml PO PRN 05/23/15 Megestrol Acetate Oral Susp [Megace Oral Suspension -] 800 mg PO DAILY 05/23/15 Valproate Sodium Liquid [Depakene Oral Solution -] 500 mg PO BID 05/23/15 Omeprazole [Prilosec (RX)] 40 mg PO BID #0 05/26/15 Bromocriptine Mesylate 2.5 tab PO HS 03/19/16 Loratadine 10 tab PO DAILY 03/19/16 Docusate Sodium [Colace -] 100 mg PO TID #90 capsule 03/22/16 Aspirin [ASA -] 81 mg PO DAILY #30 tab.chew 03/23/16 Levofloxacin [Levaquin] 500 mg PO DAILY #10 tablet 03/23/16 Simvastatin [Zocor -] 20 mg PO HS #30 tablet 03/23/16 Review of Systems - Review of Systems Cardiovascular: reports: No Symptoms Respiratory: reports: Cough Gastrointestinal: reports: Abdominal Pain, Constipation Physical Exam Vital Signs: Vital Signs Temperature 97.5 F L 03/31/16 16:57 Pulse Rate 98 H 03/31/16 16:57 Respiratory Rate 20 03/31/16 16:57 Blood Pressure 133/84 03/31/16 16:57 O2 Sat by Pulse Oximetry (%) 98 03/31/16 16:57 Imaging - Results Chest X-ray: Report Reviewed, Image Reviewed Cat Scan: Image Reviewed Problem List - Problems (1) SBO (small bowel obstruction) Assessment/Plan: r/o strangulated inguinal hernia Admit for emergency abdominal exploration, possible bowel resection, and hernia repair NPO, IVF Code(s): K56.69 - OTHER INTESTINAL OBSTRUCTION (2) Inguinal hernia Code(s): K40.90 - UNIL INGUINAL HERNIA, W/O OBST OR GANGR, NOT SPCF RECUR
[2016-04-01] MEDS ORDERED: ONDANSETRON 4 MG/2 ML VIAL IVPUSH PRN ×2 (06:23→09:39)
[2016-04-01] MEDS ORDERED: PROMETHAZINE HCL 25 MG/1 ML VIAL IVPUSH PRN ×2 (06:23→09:39)
[2016-04-01] MEDS ORDERED: LACTATED RINGERS SOLUTION 1,000 ML IV SCH ×2 (06:30→09:39)
[2016-04-01] MEDS ORDERED: PROPOFOL 20 ML ONE (06:32)
[2016-04-01] MEDS ORDERED: ROCURONIUM BROMIDE 50 MG/5 ML VIAL ONE (06:33)
[2016-04-01] MEDS ORDERED: LIDOCAINE HCL/PF 2% SDV 5ML VIAL ONE (06:33)
[2016-04-01] MEDS ORDERED: MIDAZOLAM HCL 2 MG/2 ML SINGLE DOSE VIAL ONE (06:33)
[2016-04-01] MEDS ORDERED: AMPICILLIN NA/SULBACTAM NA 1.5 GM VIAL ONE ×2 (06:35→14:56)
[2016-04-01] MEDS ORDERED: AMPICILLIN NA/SULBACTAM NA 1.5 GM VIAL IVPB ONE (06:45)
[2016-04-01] MEDS ORDERED: ONDANSETRON 4 MG/2 ML VIAL ONE (08:13)
[2016-04-01] MEDS ORDERED: DEXAMETHASONE SOD PHOSPHATE 4 MG/1 ML VIAL ONE (08:13)
[2016-04-01] MEDS ORDERED: NEOSTIGMINE METHYLSULFATE 0.5 MG/ML - 10 ML MDV ONE (08:29)
[2016-04-01] MEDS ORDERED: GLYCOPYRROLATE 0.2 MG/1 ML VIAL ONE (08:29)
[2016-04-01] MEDS ORDERED: KETOROLAC TROMETHAMINE 30 MG/1 ML VIAL ONE (08:42)
[2016-04-01] MEDS ORDERED: BACITRACIN 30 GM TUBE TOPICAL OINTMENT ONE (08:44)
--- NOTE | 2016-04-01 08:54 | OP ---
Operative Note - Note: Operative Date: 04/01/16 Pre-Operative Diagnosis: Incarcerated right inguinal hernia Operation: Exploratory laparotomy, right inguinal hernia repair with mesh Implants: Plug and on-lay mesh Post-Operative Diagnosis: Other (SBO secondary to incarcerated direct right inguinal hernia) Surgeon: Abbe Andrew Fisher Eel Spear: Kip Velazquez Anesthesiologist/SENIOR CYBER SECURITY ANALYST: Tin Overton Anesthesia: General Specimens Removed: Right inguinal lymph node and hernia sac Estimated Blood Loss (mls): 30 Fluid Volume Replaced (mls): 1,000 Operative Report Dictated: Yes
--- NOTE | 2016-04-01 08:55 | SURG ---
Surgery Geophysical Prospector Note Geophysical Prospector: Kip Velazquez PA-C Date of Service: 04/01/16 Diagnosis: SBO secondary to incarcerated right inguinal hernia (direct) Procedure: Exploratory laparotomy with repair of incarcerated right inguinal hernia with mesh (plug and patch) I was present for the entirety of the operative procedure. For further detail, please refer to operative report. Visit type - Case Type Case Type: ED Admission - Emergency Emergency Visit: Yes ED Registration Date: 04/01/16 Care time: The patient presented to the Emergency Department on the above date and was hospitalized for further evaluation of their emergent condition. - New patient This patient is new to me today: Yes Date on this admission: 04/01/16
[2016-04-01] MEDS ORDERED: HYDROmorphone HCL CARPU-JECT 2 MG/1 ML DISP.SYRIN IVPB PRN (09:21)
--- NOTE | 2016-04-01 11:03 | OP ---
DATE OF OPERATION: 04/01/2016 PROCEDURE: Exploratory laparotomy, right inguinal hernia repair with mesh. PREOPERATIVE DIAGNOSIS: Small bowel obstruction secondary to incarcerated right inguinal hernia. POSTOPERATIVE DIAGNOSIS: Small bowel obstruction secondary to incarcerated right inguinal hernia containing cecum and terminal ileum. SURGEON: Abbe Andrew MD STEAM TABLE ATTENDANT: EMMANUEL Lomas ANESTHESIA: General endotracheal. FINDINGS ON PROCEDURE: This is a 50-year-old male with history of schizophrenia and chronically incarcerated right inguinal hernia. Patient was evaluated multiple times and was advised elective inguinal hernia repair, but adamantly refused. Patient then developed sudden onset of right inguinal pain with abdominal distension. Patient was sent to the emergency department where a CT scan revealed small bowel obstruction the transition point in the incarcerated hernia containing the cecum and the terminal ileum. So, patient was admitted and scheduled for emergent exploration to relieve the obstruction as well as repair the hernia. Consent was obtained from the health care proxy after discussing the risks, benefits, and alternatives of the procedure. DESCRIPTION OF PROCEDURE: Patient was brought to the operating room and placed in supine position. General endotracheal anesthesia was administered. The abdomen was prepped and draped in the usual sterile fashion. Lang catheter was inserted and NG tube was also inserted. The hernia, the bulge which was about 10 x 8 cm in size, was left untouched, and initially a 10-cm inguinal incision over the bulging groin was made using scalpel blade No. 10. Further dissection using Bovie cautery was done and carefully dissecting each layer of the abdominal wall. After the Scarpas fascia was incised, the hernia sac was encountered, and further dissection using combined Bovie and Metzenbaum scissors was done until onto the neck of the hernia sac. The hernia defect was slightly enlarged using Bovie cautery. The hernia defect, which was noted to be a direct hernia, was bluntly dissected preperitoneally and until the hernia content was reduced. A tear, which was suspicious for the bowel wall was noted. No spillage of intestinal contents was noted. Due to the dense adhesions of the posterior abdominal wall to the hernia, there was concern for incomplete reduction of the bowel. It was decided to perform a counter incision in the lower midline of the abdomen using dense scalpel blade No. 10. Dissection was carried down to subcutaneous tissue, and the fascia was incised using Bovie cautery to enter the peritoneal cavity. As soon as the parietal peritoneum was opened, the dilated loops of bowel were eviscerated, and the bowel was inspected from the ligament of Treitz to the terminal ileum. It was at this point where the terminal ileum was reduced, and this was carefully inspected and was noted to be viable. The part of the wall of the cecum was noted to be adherent to the hernia sac. The rent that was suspicious for bowel wall was noted to be the wall of the hernia sac. After the cecum and the terminal ileum were carefully inspected, the eviscerated small intestine was returned to the peritoneal cavity. The abdomen was closed with continuous PDS loop No. 1 sutures, and the skin was closed with magda. The hernia repair was done by deploying a large mesh plug to the preperitoneal space, and the inguinal floor was reconstructed by opposing the conjoint tendon to the inguinal ligament with a continuous Prolene 0 suture. The repair was then reinforced with the polypropylene patch. The spermatic cord was inspected and was noted to be intact. The ilioinguinal nerve was noted and was transected to avoid postoperative inguinodynia. The Scarpas fascia was opposed with continuous Prolene. Hernia patch was topped with newly reconstructed inguinal floor with interrupted Vicryl 3-0 sutures. The Scarpas fascia was then opposed with a continuous Vicryl 3-0 suture, and the skin was closed with magda. The wounds were covered with sterile dressing. The patient was successfully extubated and transferred to the post-anesthesia care unit in satisfactory condition. ESTIMATED BLOOD LOSS: About 30 mL. WOUND CLASS: Clean-contaminated. Patient received Unasyn prior to the start of the procedure. Ludin [id number]
--- NOTE | 2016-04-01 15:37 | EKG ---
Test Reason : Blood Pressure : / mmHG Vent. Rate : 074 BPM Atrial Rate : 074 BPM P-R Int : 118 ms QRS Dur : 088 ms QT Int : 378 ms P-R-T Axes : 044 076 063 degrees QTc Int : 419 ms NORMAL SINUS RHYTHM NONSPECIFIC T WAVE ABNORMALITY ABNORMAL ECG WHEN COMPARED WITH ECG OF 18-MAR-2016 21:03, NO SIGNIFICANT CHANGE WAS FOUND Confirmed by CAL YEN MD ([id number]) on 04/01/2016 3:37:14 PM Referred By: Confirmed By:CAL YEN MD
--- NOTE | 2016-04-01 18:19 | HP ---
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: Yes: Dementia, Seizure, Other (OBS) Pulmonary: Yes: Pneumonia Gastrointestinal: Yes: Constipation, GERD, Other (VIVAR'S, SEVERE ESOPHAGITIS DUE TO NON COMPLIANCE,HX CLEFT PALATE) Psych: Yes: Psychosis, Schizophrenia, Other (PARANOIA) - Past Surgical History Past Surgical History: Yes: Upper Endoscopy - Smoking History Smoking history: Never smoked Have you smoked in the past 12 months: No If you are a former smoker, when did you quit?: 1999 - Alcohol/Substance Use Hx Alcohol Use: No - Social History ADL: Support Services History of Recent Travel: No Home Medications - Allergies Allergies/Adverse Reactions: Allergies Allergy/AdvReac Type Severity Reaction Status Date / Time No Known Allergies Allergy Verified 03/31/16 17:00 - Home Medications Home Medications: Ambulatory Orders Desmopressin Acetate 0.1 mg PO BID #60 tablet 07/26/14 Bupropion HCl [Wellbutrin Xl -] 150 mg PO DAILY 05/23/15 Clonazepam [Klonopin -] 0.5 mg PO HS PRN 05/23/15 Clozapine 200 mg PO BID 05/23/15 Ferrous Sulfate [Feosol] 325 mg PO BID 05/23/15 [place] Carbonate [Eskalith -] 300 mg PO DAILY 05/23/15 Mag Hydrox/Al Hydrox/Simeth [Antacid-[place]ig[place] Liquid] 355 ml PO PRN 05/23/15 Megestrol Acetate Oral Susp [Megace Oral Suspension -] 800 mg PO DAILY 05/23/15 Valproate Sodium Liquid [Depakene Oral Solution -] 500 mg PO BID 05/23/15 Omeprazole [Prilosec (RX)] 40 mg PO BID #0 05/26/15 Bromocriptine Mesylate 2.5 tab PO HS 03/19/16 Loratadine 10 tab PO DAILY 03/19/16 Docusate Sodium [Colace -] 100 mg PO TID #90 capsule 03/22/16 Aspirin [ASA -] 81 mg PO DAILY #30 tab.chew 03/23/16 Levofloxacin [Levaquin] 500 mg PO DAILY #10 tablet 03/23/16 Simvastatin [Zocor -] 20 mg PO HS #30 tablet 03/23/16 Physical Examination Vital Signs: Vital Signs Temperature 99.1 F 04/01/16 08:45 Pulse Rate 73 04/01/16 17:25 Respiratory Rate 18 04/01/16 17:25 Blood Pressure 118/74 04/01/16 17:25 O2 Sat by Pulse Oximetry (%) 100 04/01/16 17:25
[2016-04-01] MEDS ORDERED: clonazePAM 0.5 MG TABLET PO PRN (19:40)
[2016-04-01] MEDS ORDERED: MAG HYDROX/AL HYDROX/SIMETH 30 ML UNIT-DOSE CUP PO PRN (19:45)
[2016-04-01] MEDS: LACTATED RINGERS SOLUTION 1,000 ML IV SCH (20:41)
[2016-04-01] MEDS: HEPARIN NA (PORCINE) 5,000 UNITS/ML 1ML VIAL SQ SCH ×2 (20:41→22:32)
[2016-04-01] MEDS: AMPICILLIN NA/SULBACTAM NA 100 ML IVPB SCH (21:00)
[2016-04-01] MEDS ORDERED: HEPARIN NA (PORCINE) 5,000 UNITS/ML 1ML VIAL SQ SCH (22:00)
[2016-04-01] MEDS: BROMOCRIPTINE MESYLATE 2.5 MG TABLET PO SCH (22:28)
[2016-04-01] MEDS: ATORVASTATIN CA 10 MG TABLET (FP) PO SCH (22:28)
[2016-04-01] MEDS: DOCUSATE SODIUM 100 MG CAPSULE (FP) PO SCH (22:28)
[2016-04-01] MEDS: PANTOPRAZOLE SOD 40 MG SUSPENSION PACKET PO SCH (22:28)
[2016-04-01] MEDS: FERROUS SO4 325 MG TABLET (FP) PO SCH (22:28)
[2016-04-01] MEDS: VALPROATE SODIUM 250 MG/5 ML UNIT DOSE CUP PO SCH (22:28)
[2016-04-01] MEDS: DESMOPRESSIN ACETATE 0.1 MG TABLET PO SCH (22:28)
[2016-04-02] MEDS: AMPICILLIN NA/SULBACTAM NA 1.5 GM in SODIUM CHLORIDE 100 ML IVPB SCH ×2 (03:11→03:12)
[2016-04-02] MEDS: AMPICILLIN NA/SULBACTAM NA 100 ML IVPB SCH ×2 (04:20→13:00)
[2016-04-02] MEDS: DOCUSATE SODIUM 100 MG CAPSULE (FP) PO SCH ×3 (05:14→23:20)
[2016-04-02 08:26] LABS: BASOPHIL 0.5 % (0-2.0); EOSINOPHIL 0.1 % (0-4.5); MCH 29.8 pg (25.7-33.7); MCHC 33.9 g/dl (32.0-35.9); MEAN CELL VOLUME 88.1 fl (80-96); MEAN PLT VOLUME 7.6 fl (7.5-11.1); NEUTROPHILS 65.3 % (42.8-82.8); PLATELET COUNT 346 K/MM3 (134-434); RDW 14.8 % (11.9-15.9); WHITE BLOOD COUNT 6.6 K/mm3 (4.0-10.0)
[2016-04-02 09:12] LABS: ALBUMIN 2.2 g/dl (3.4-5.0); ANION GAP 8 (8-16); CALCIUM 8.2 mg/dL (8.5-10.1); CO2 26 mmol/L (21-32); GLUCOSE,RANDOM 94 mg/dL (74-106)
[2016-04-02 09:14] LABS: ALK PHOS 67 U/L (45-117); BILIRUBIN,TOTAL 0.6 mg/dL (0.2-1.0); CREATININE 0.8 mg/dL (0.7-1.3); SGOT/AST 13 U/L (15-37); SGPT/ALT 13 U/L (12-78)
[2016-04-02] MEDS: HEPARIN NA (PORCINE) 5,000 UNITS/ML 1ML VIAL SQ SCH ×2 (10:00→23:30)
[2016-04-02] MEDS: PANTOPRAZOLE SOD 40 MG SUSPENSION PACKET PO SCH ×2 (10:00→23:21)
[2016-04-02] MEDS: MEGESTROL ACETATE 400 MG/10 ML UNIT DOSE CUP PO SCH (10:00)
--- NOTE | 2016-04-02 11:23 | PN ---
Progress Note (short form) - Note Progress Note: ANESTHESIA POST-OP CHECK 50M s/p exploratory laparotomy and repair of right incarcerated hernia under general anesthesia POD #1. No acute complaints. Denies N/V, NGT in place, pain 7 /10 and tolerable. Lang removed. Vital Signs Temperature 99.5 F 04/02/16 05:00 Pulse Rate 89 04/02/16 05:00 Respiratory Rate 24 04/02/16 05:00 Blood Pressure 147/79 04/02/16 05:00 O2 Sat by Pulse Oximetry (%) 97 04/01/16 20:46 Active Medications Al Hydroxide/Mg Hydroxide (Mylanta Oral Suspension -) 30 ml PO Q8H PRN Aspirin (Asa -) 81 mg PO DAILY [facility] Atorvastatin Calcium (Lipitor -) 10 mg PO HS [facility] Last Admin: 04/01/16 22:28 Dose: Not Given Bromocriptine Mesylate (Parlodel -) 2.5 mg PO HS [facility] Last Admin: 04/01/16 22:28 Dose: Not Given Bupropion HCl (Wellbutrin Xl -) 150 mg PO DAILY [facility] Clonazepam (Klonopin -) 0.5 mg PO HS PRN PRN Reason: ANXIETY Desmopressin Acetate (Ddavp -) 0.1 mg PO BID [facility] Last Admin: 04/01/16 22:28 Dose: Not Given Docusate Sodium (Colace -) 100 mg PO TID [facility] Last Admin: 04/02/16 05:14 Dose: Not Given Ferrous Sulfate (Feosol -) 325 mg PO BID [facility] Last Admin: 04/01/16 22:28 Dose: Not Given Heparin Sodium (Porcine) (Heparin -) 5,000 unit SQ BID [facility] Last Admin: 04/01/16 22:32 Dose: 5,000 unit Hydromorphone HCl (Dilaudid Injection -) 2 mg IVPB Q6H PRN PRN Reason: PAIN Last Admin: 04/01/16 20:58 Dose: 2 mg Lactated Ringer's (Lactated Ringers Solution) 1,000 mls @ 100 mls/hr IV ASDIR [facility] Last Admin: 04/01/16 20:41 Dose: 100 mls/hr Ampicillin Sodium/Sulbactam Sodium (Unasyn 1.5 Gm (Pre-Docked)) 100 mls @ 200 mls/hr IVPB Q8H [facility] Stop: 04/02/16 20:59 Last Admin: 04/02/16 04:20 Dose: 200 mls/hr [place] Carbonate (Eskalith -) 300 mg PO DAILY [facility] Loratadine (Claritin -) 10 mg PO DAILY [facility] Megestrol Acetate (Megace Oral Suspension -) 800 mg PO DAILY [facility] (Clozapine [ Clozapine] 100 Mg) Patient's Own Medication (Non- Formulary) 100 mg PO BID [facility] Last Admin: 04/01/16 22:27 Dose: Not Given Pantoprazole Sodium (Protonix Packets For Oral Suspension -) 40 mg PO BID [facility] Last Admin: 04/01/16 22:28 Dose: Not Given Valproate Sodium (Depakene -) 500 mg PO BID [facility] Last Admin: 04/01/16 22:28 Dose: Not Given Gen: Awake, alert No apparent anesthesia complications. Pain controlled. Continue management as per primary team.
--- NOTE | 2016-04-02 14:51 | PN ---
Addendum entered and electronically signed by Pepper Maurer PA 04/02/16 16:32: called by nurse, pt with emesis x2. NGT reinserted and tape at 60, 500ml light brown return. CXR ordered to confirm placement. Original Note: Progress Note (short form) - Note Progress Note: POD#1 Minimal outpt of the NGT, UOP good. He wants to have have liquids. Vital Signs Period Temp Pulse Resp BP Sys/Reddy Pulse Ox Last 24 Hr 98.5 F-99.7 F 73-94 16-24 109-147/60-90 97-100 [id number]-llptt/liquid Siddiqui-clear 1200ml PE: GEN: resting comfortablely CV:RRR Lungs: CTA b/l ABD: soft, slight distention, inc tenderness. dressing c/d/i Siddiqui- clear/yellow urine. CBC, BMP 04/02/16 07:15 04/02/16 07:15 Problem List - Problems (1) SBO (small bowel obstruction) Assessment/Plan: s/p Exp lap for SBO from incarcerated RIH, Lysis of adhesion and repair of incarcerated RIH with mesh S/w Dr. Andrew and he ordered for the ngt to be removed and start clears with regular oral medications. siddiqui to be removed for trial of clears oob to charir DVT ppx with SCDs and Heparin SQ Code(s): K56.69 - OTHER INTESTINAL OBSTRUCTION
--- NOTE | 2016-04-02 15:10 | PATH ---
Surgical Pathology Report Patient Name: YARITZA NASH [facility]. Rec. #: [id number] /Age/Gender: 1965 (Age: 50) / M Account: [id number] Location: [address] [place] [address]/[facility] Taken: 04/01/2016 Received: 04/01/2016 Reported: 04/02/2016 Physicians: Abbe Andrew M.D. Specimen(s) Received A: INGUINAL LYMPH NODE RIGHT SIDE B: RIGHT INGUINAL HERNIA SAC Clinical History Small bowel obstruction, incarcerated hernia Final Diagnosis A. LYMPH NODE, RIGHT INGUINAL, LYMPHADENECTOMY: BENIGN LYMPH NODE. Comment: Immunohistochemical stains for CD3 and CD20 performed and interpreted [facility] on block A1 show a mixed T and B. lymphoid populations supporting interpretation above. B. HERNIA SAC, RIGHT, INGUINAL HERNIA REPAIR: BENIGN FIBROMEMBRANOUS AND FIBROFATTY TISSUE. Electronically Signed Andi Shea M.D. Gross Description A. Received in formalin, labeled "inguinal lymph node right side" is a 1.0 x 0.6 x 0.3 cm [place], irregular lymph node. The specimen is submitted in toto in one cassette. B. Received in formalin, labeled "right inguinal hernia sac" is a 4.2 x 1.7 x 1.0 cm gilmore-brown, irregular portion of fibromembranous tissue with minimal attached fat, consistent with a hernia sac. Customer Operations Intern sections are submitted in one cassette. /04/01/2016 saudi04/01/2016
--- NOTE | 2016-04-02 17:52 | PN ---
Progress Note (short form) - Note Progress Note: Surgery Attending Patient vomited after NGT removal Abdomen is distended, with 800 cc of bilious drainage from the reinserted NGT A: post-op ileus P: continue NGT, IVF, OOB, DVT, & GI prophylaxis Problem List - Problems (1) SBO (small bowel obstruction) Code(s): K56.69 - OTHER INTESTINAL OBSTRUCTION (2) Inguinal hernia Code(s): K40.90 - UNIL INGUINAL HERNIA, W/O OBST OR GANGR, NOT SPCF RECUR
[2016-04-02] MEDS: ASPIRIN 81 MG CHEWABLE TABLETS PO SCH (18:18)
[2016-04-02] MEDS: LORATADINE 10 MG TABLET PO SCH (18:19)
[2016-04-02] MEDS: DESMOPRESSIN ACETATE 0.1 MG TABLET PO SCH ×2 (18:21→23:20)
[2016-04-02] MEDS: VALPROATE SODIUM 250 MG/5 ML UNIT DOSE CUP PO SCH ×2 (18:31→23:20)
[2016-04-02] MEDS: FERROUS SO4 325 MG TABLET (FP) PO SCH ×2 (18:32→23:21)
[2016-04-02] MEDS: LITHIUM CARBONATE 300 MG CAPSULE (FP) PO SCH (18:32)
--- NOTE | 2016-04-02 22:10 | PN ---
Progress Note, Physician History of Present Illness: Pt w/ multiple episodes of vomiting and NGT reinserted - Current Medication List Current Medications: Active Medications Al Hydroxide/Mg Hydroxide (Mylanta Oral Suspension -) 30 ml PO Q8H PRN Aspirin (Asa -) 81 mg PO DAILY [facility] Last Admin: 04/02/16 18:18 Dose: Not Given Atorvastatin Calcium (Lipitor -) 10 mg PO HS [facility] Last Admin: 04/01/16 22:28 Dose: Not Given Bromocriptine Mesylate (Parlodel -) 2.5 mg PO HS [facility] Last Admin: 04/01/16 22:28 Dose: Not Given Bupropion HCl (Wellbutrin Xl -) 150 mg PO DAILY [facility] Last Admin: 04/02/16 10:00 Dose: Not Given Clonazepam (Klonopin -) 0.5 mg PO HS PRN PRN Reason: ANXIETY Desmopressin Acetate (Ddavp -) 0.1 mg PO BID [facility] Last Admin: 04/02/16 18:21 Dose: Not Given Docusate Sodium (Colace -) 100 mg PO TID [facility] Last Admin: 04/02/16 14:00 Dose: Not Given Ferrous Sulfate (Feosol -) 325 mg PO BID [facility] Last Admin: 04/02/16 18:32 Dose: Not Given Heparin Sodium (Porcine) (Heparin -) 5,000 unit SQ BID [facility] Last Admin: 04/02/16 10:00 Dose: 5,000 unit Hydromorphone HCl (Dilaudid Injection -) 2 mg IVPB Q6H PRN PRN Reason: PAIN Last Admin: 04/01/16 20:58 Dose: 2 mg Lactated Ringer's (Lactated Ringers Solution) 1,000 mls @ 100 mls/hr IV ASDIR [facility] Last Admin: 04/01/16 20:41 Dose: 100 mls/hr Famotidine/Sodium Chloride (Pepcid 20 Mg Premixed Ivpb -) 50 mls @ 100 mls/hr IVPB BID [facility] [place] Carbonate (Eskalith -) 300 mg PO DAILY [facility] Last Admin: 04/02/16 18:32 Dose: Not Given Loratadine (Claritin -) 10 mg PO DAILY [facility] Last Admin: 04/02/16 18:19 Dose: Not Given Megestrol Acetate (Megace Oral Suspension -) 800 mg PO DAILY [facility] Last Admin: 04/02/16 10:00 Dose: Not Given (Clozapine [ Clozapine] 100 Mg) Patient's Own Medication (Non- Formulary) 100 mg PO BID [facility] Last Admin: 04/02/16 18:19 Dose: Not Given Pantoprazole Sodium (Protonix Packets For Oral Suspension -) 40 mg PO BID [facility] Last Admin: 04/02/16 10:00 Dose: Not Given Valproate Sodium (Depakene -) 500 mg PO BID [facility] Last Admin: 04/02/16 18:31 Dose: Not Given - Objective Vital Signs: Vital Signs Temperature 99.4 F 04/02/16 09:00 Pulse Rate 94 H 04/02/16 09:00 Respiratory Rate 20 04/02/16 09:00 Blood Pressure 140/90 04/02/16 09:00 O2 Sat by Pulse Oximetry (%) 97 04/01/16 20:46 Cardiovascular: Yes: WNL, Regular Rate and Rhythm Respiratory: Yes: WNL, Regular, CTA Bilaterally Gastrointestinal: Yes: Other ((+) surgical tenderness) Labs: CBC, BMP 04/02/16 07:15 04/02/16 07:15 INR, PTT INR 1.20 (0.82-1.09) H 03/31/16 19:30 Problem List - Problems (1) Inguinal hernia Assessment/Plan: S/P exp lap incarcerated RT inguinal hernia Cont NGT as per surgery Cont IVF Code(s): K40.90 - UNIL INGUINAL HERNIA, W/O OBST OR GANGR, NOT SPCF RECUR (2) SBO (small bowel obstruction) Assessment/Plan: S/P lysis of adhesions Code(s): K56.69 - OTHER INTESTINAL OBSTRUCTION (3) Schizophrenia Code(s): F20.9 - SCHIZOPHRENIA, UNSPECIFIED (4) Mental retardation Code(s): F79 - UNSPECIFIED INTELLECTUAL DISABILITIES
[2016-04-02] MEDS: ATORVASTATIN CA 10 MG TABLET (FP) PO SCH (23:21)
[2016-04-02] MEDS: BROMOCRIPTINE MESYLATE 2.5 MG TABLET PO SCH (23:21)
[2016-04-02] MEDS: LACTATED RINGERS SOLUTION 1,000 ML IV SCH (23:29)
[2016-04-02] MEDS: FAMOTIDINE 20 MG/50 ML IVPB 50 ML IVPB SCH (23:30)
[2016-04-03] MEDS: DOCUSATE SODIUM 100 MG CAPSULE (FP) PO SCH ×3 (05:38→21:28)
[2016-04-03 09:05] LABS: MCH 29.9 pg (25.7-33.7); MCHC 34.1 g/dl (32.0-35.9); MEAN CELL VOLUME 87.8 fl (80-96); MEAN PLT VOLUME 7.8 fl (7.5-11.1); PLATELET COUNT 318 K/MM3 (134-434); RDW 14.6 % (11.9-15.9); WHITE BLOOD COUNT 7.4 K/mm3 (4.0-10.0)
[2016-04-03] MEDS: ASPIRIN 81 MG CHEWABLE TABLETS PO SCH (09:38)
[2016-04-03] MEDS: LORATADINE 10 MG TABLET PO SCH (09:38)
[2016-04-03] MEDS: LACTATED RINGERS SOLUTION 1,000 ML IV SCH (09:38)
[2016-04-03] MEDS: DESMOPRESSIN ACETATE 0.1 MG TABLET PO SCH ×2 (09:38→21:28)
[2016-04-03] MEDS: MEGESTROL ACETATE 400 MG/10 ML UNIT DOSE CUP PO SCH (09:39)
[2016-04-03] MEDS: PANTOPRAZOLE SOD 40 MG SUSPENSION PACKET PO SCH ×2 (09:39→21:30)
[2016-04-03] MEDS: FERROUS SO4 325 MG TABLET (FP) PO SCH ×2 (09:39→21:37)
[2016-04-03] MEDS: LITHIUM CARBONATE 300 MG CAPSULE (FP) PO SCH (09:39)
[2016-04-03] MEDS: VALPROATE SODIUM 250 MG/5 ML UNIT DOSE CUP PO SCH (09:39)
[2016-04-03] MEDS: HEPARIN NA (PORCINE) 5,000 UNITS/ML 1ML VIAL SQ SCH ×2 (09:49→21:29)
[2016-04-03] MEDS: FAMOTIDINE 20 MG/50 ML IVPB 50 ML IVPB SCH ×2 (09:49→21:30)
[2016-04-03 09:51] LABS: ANISOCYTOSIS 1+; HYPOCHROMIA 1+; PLATELET COMMENT2 NO CLOTTING DETECTED; PLATELET ESTIMATE ADEQUATE (NORMAL)
[2016-04-03 10:00] LABS: ALBUMIN 2.2 g/dl (3.4-5.0); ALK PHOS 75 U/L (45-117); ANION GAP 7 (8-16); BILIRUBIN,TOTAL 0.6 mg/dL (0.2-1.0); CALCIUM 8.1 mg/dL (8.5-10.1); CO2 27 mmol/L (21-32); CREATININE 0.7 mg/dL (0.7-1.3); GLUCOSE,RANDOM 100 mg/dL (74-106); SGOT/AST 12 U/L (15-37); SGPT/ALT 14 U/L (12-78); TOT PROT 6.1 g/dl (6.4-8.2)
[2016-04-03] MEDS ORDERED: PHENOL 177 ML SPRAY BOTTLE MM PRN (11:20)
--- NOTE | 2016-04-03 11:25 | PN ---
[id number], right inguinal hernia repair with mesh Patient resting comfortably with NGT in place, complaining of sore throat. No events overnight according to nurse, NGT put out 900cc. Last Vital Signs Temp Pulse Resp BP Pulse Ox 99.4 F 88 18 135/90 98 04/03/16 10:00 04/03/16 10:00 04/03/16 10:00 04/03/16 10:00 04/03/16 09:00 CBC, BMP 04/03/16 07:30 04/03/16 07:30 PE: Gen: NAD, resting comfortably ENT: NGT in place Abd: softly distended, nontendener, dressings clean/dry/intact <Wendi Dickerson - Last Filed: 04/03/16 12:37> - Note Progress Note: POD #2 Patient seen and examined. Agree with EMMANUEL Dickerson's assessment and plan of management with addition of fleet enema for today. <Abbe Adnrew - Last Filed: 04/03/16 16:08> Problem List - Problems (1) Inguinal hernia Assessment/Plan: POD#2 s/p exploratory laparotomy, right inguinal hernia repair with mesh for incarcerated right inguinal hernia, now with post-op ileus Continue NG tube, monitor output Chloraseptic throat spray OOB DVT prophylaxis Patient discussed with Dr. Andrew Code(s): K40.90 - UNIL INGUINAL HERNIA, W/O OBST OR GANGR, NOT SPCF RECUR <Wendi Dickerson - Last Filed: 04/03/16 12:37> - Problems (1) SBO (small bowel obstruction) Code(s): K56.69 - OTHER INTESTINAL OBSTRUCTION (2) Inguinal hernia Code(s): K40.90 - UNIL INGUINAL HERNIA, W/O OBST OR GANGR, NOT SPCF RECUR <Abbe Andrew - Last Filed: 04/03/16 16:08>
--- NOTE | 2016-04-03 11:34 | PN ---
Physical Exam: SUBJECTIVE: Patient seen and examined. He complains of sore throat. Nausea is better with NG tube. OBJECTIVE: Vital Signs Period Temp Pulse Resp BP Sys/Reddy Pulse Ox Last 24 Hr 99.4 F 88 18 135/90 98 GENERAL: The patient is awake, alert, in no acute distress. NECK: Trachea midline, full range of motion, supple. LUNGS: Breath sounds equal, clear to auscultation bilaterally, no wheezes, no crackles, no accessory muscle use. HEART: Regular rate and rhythm, S1, S2 without murmur, rub or gallop. ABDOMEN: Soft, distended, non-tender, hypoactive BS. EXTREMITIES: 2+ pulses, warm, well-perfused, no edema. Laboratory Results - last 24 hr 04/03/16 04/03/16 07:30 07:30 WBC 7.4 RBC 3.48 L Hgb 10.4 L Hct 30.6 L MCV 87.8 MCHC 34.1 RDW 14.6 Plt Count 318 MPV 7.8 Neutrophils % 68.0 Lymphocytes % 20.0 D Monocytes % 11.0 H Band Neutrophils 1.0 D Platelet Estimate Adequate Platelet Comment No clotting detected Hypochromic-Microcytic 1+ Anisocytosis 1+ Sodium 139 Potassium 4.0 Chloride 105 Carbon Dioxide 27 Anion Gap 7 L BUN 18 D Creatinine 0.7 Creat Clearance w eGFR > 60 Random Glucose 100 Calcium 8.1 L Total Bilirubin 0.6 AST 12 L ALT 14 Alkaline Phosphatase 75 Total Protein 6.1 L Albumin 2.2 L Active Medications Generic Name Dose Route Start Last Admin Trade Name Freq PRN Reason Stop Dose Admin Al Hydroxide/Mg Hydroxide 30 ml 04/01/16 19:45 Mylanta Oral Suspension - PO Q8H PRN Aspirin 81 mg 04/02/16 10:00 04/03/16 09:38 Asa - PO Not Given DAILY [facility] Atorvastatin Calcium 10 mg 04/01/16 22:00 04/02/16 23:21 Lipitor - PO Not Given HS [facility] Bromocriptine Mesylate 2.5 mg 04/01/16 22:00 04/02/16 23:21 Parlodel - PO Not Given HS [facility] Bupropion HCl 150 mg 04/02/16 10:00 04/03/16 09:39 Wellbutrin Xl - PO Not Given DAILY [facility] Clonazepam 0.5 mg 04/01/16 19:40 Klonopin - PO HS PRN ANXIETY Desmopressin Acetate 0.1 mg 04/01/16 22:00 04/03/16 09:38 Ddavp - PO Not Given BID [facility] Docusate Sodium 100 mg 04/01/16 22:00 04/03/16 05:38 Colace - PO Not Given TID [facility] Ferrous Sulfate 325 mg 04/01/16 22:00 04/03/16 09:39 Feosol - PO Not Given BID [facility] Heparin Sodium (Porcine) 5,000 unit 04/01/16 10:00 04/03/16 09:49 Heparin - SQ 5,000 unit BID [facility] Administration Hydromorphone HCl 2 mg 04/01/16 09:21 04/01/16 20:58 Dilaudid Injection - IVPB 2 mg Q6H PRN Administration PAIN Lactated Ringer's 1,000 mls @ 100 mls/hr 04/01/16 09:30 04/03/16 09:38 Lactated Ringers Solution IV Not Given ASDIR [facility] Famotidine/Sodium Chloride 50 mls @ 100 mls/hr 04/02/16 22:00 04/03/16 09:49 Pepcid 20 Mg Premixed Ivpb - IVPB 100 mls/hr BID [facility] Administration [place] Carbonate 300 mg 04/02/16 10:00 04/03/16 09:39 Eskalith - PO Not Given DAILY [facility] Loratadine 10 mg 04/02/16 10:00 04/03/16 09:38 Claritin - PO Not Given DAILY [facility] Megestrol Acetate 800 mg 04/02/16 10:00 04/03/16 09:39 Megace Oral Suspension - PO Not Given DAILY [facility] (Clozapine [ 100 mg 04/01/16 22:00 04/03/16 09:38 Clozapine] 100 Mg) PO Not Given Patient's Own BID [facility] Medication (Non- Formulary) Pantoprazole Sodium 40 mg 04/01/16 22:00 04/03/16 09:39 Protonix Packets For Oral Suspension - PO Not Given BID [facility] Phenol/Menthol 1 spray 04/03/16 11:20 Chloraseptic - MM Q6HPO PRN SORE THROAT Valproate Sodium 500 mg 04/01/16 22:00 04/03/16 09:39 Depakene - PO Not Given BID [facility] ASSESSMENT/PLAN: 1. Small bowel obstruction secondary to incarcerated right inguinal hernia - s/p exploratory laparotomy, right inguinal hernia repair 04/01 2. Post-op ileus - Maintain NG tube 3. Schizophrenia, bipolar disorder, mild mental retardation - Change Depakote to IV until able to take oral medications - Hold Clozapine, [place], Wellbutrin until able to take oral medications Visit type - Emergency Visit Emergency Visit: Yes ED Registration Date: 04/01/16 Care time: The patient presented to the Emergency Department on the above date and was hospitalized for further evaluation of their emergent condition. - New Patient This patient is new to me today: Yes Date on this admission: 04/03/16 - Critical Care Critical Care patient: No - Discharge Referral Referred to [facility] Med P.C.: No
[2016-04-03] MEDS ORDERED: SODIUM CHLORIDE 1,000 ML IV STA (13:06)
[2016-04-03] MEDS ORDERED: SODIUM PHOSPHATE/NA BIPHOS 133 ML ENEMA PR ONE (16:01)
[2016-04-03] MEDS: D5-1/2NS+20 MEQ KCL - 1,000 ML IV SCH (16:25)
[2016-04-03] MEDS: VALPROATE SODIUM 500 MG/5 ML VIAL IVPB SCH (21:29)
[2016-04-03] MEDS: ATORVASTATIN CA 10 MG TABLET (FP) PO SCH (21:29)
[2016-04-03] MEDS: BROMOCRIPTINE MESYLATE 2.5 MG TABLET PO SCH (21:30)
[2016-04-04] MEDS: D5-1/2NS+20 MEQ KCL - 1,000 ML IV SCH ×2 (04:07→15:18)
[2016-04-04] MEDS: DOCUSATE SODIUM 100 MG CAPSULE (FP) PO SCH ×3 (06:07→21:28)
[2016-04-04] MEDS: LORATADINE 10 MG TABLET PO SCH (10:37)
[2016-04-04] MEDS: ASPIRIN 81 MG CHEWABLE TABLETS PO SCH (10:37)
[2016-04-04] MEDS: LITHIUM CARBONATE 300 MG CAPSULE (FP) PO SCH (10:38)
[2016-04-04] MEDS: PANTOPRAZOLE SOD 40 MG SUSPENSION PACKET PO SCH ×2 (10:38→21:32)
[2016-04-04] MEDS: FERROUS SO4 325 MG TABLET (FP) PO SCH ×2 (10:38→21:32)
[2016-04-04] MEDS: MEGESTROL ACETATE 400 MG/10 ML UNIT DOSE CUP PO SCH (10:38)
[2016-04-04] MEDS: DESMOPRESSIN ACETATE 0.1 MG TABLET PO SCH ×2 (10:38→21:30)
[2016-04-04] MEDS: FAMOTIDINE 20 MG/50 ML IVPB 50 ML IVPB SCH ×2 (10:39→21:23)
[2016-04-04] MEDS: HEPARIN NA (PORCINE) 5,000 UNITS/ML 1ML VIAL SQ SCH ×3 (10:39→21:29)
[2016-04-04] MEDS: VALPROATE SODIUM 500 MG/5 ML VIAL IVPB SCH ×2 (10:40→21:31)
--- NOTE | 2016-04-04 12:59 | PN ---
Addendum entered and electronically signed by Wendi Dickerson PA 04/04/16 14:35 : Abd XR- ileus, distension, discussed with Dr. Andrew, continue NGT to suction, nursing staff made aware to unclamp NGT Original Note: Progress Note (short form) - Note Progress Note: Patient seen and examined. No events per nursing, patient wants to remove NG tube. Patient had BM, no nausea or vomiting. Patient states he is not having much pain. States his throat feels a little better. Last Vital Signs Temp Pulse Resp BP Pulse Ox 98.9 F 72 19 129/75 96 04/04/16 05:57 04/04/16 05:57 04/04/16 05:57 04/04/16 05:57 04/03/16 21:00 CBC, BMP 04/03/16 07:30 04/03/16 07:30 NG output 100 cc overnight Gen: NAD, resting comfortably in bed, NGT in place Abd: distended, soft, nontender, incisions intact without erythema or drainage <Wendi Dickerson - Last Filed: 04/04/16 13:06> - Note Progress Note: Surgery Attending FUA shows persitent ileus. Will keep NGT to LWS for another 24 hours. <Abbe Andrew - Last Filed: 04/04/16 14:23> Problem List - Problems (1) Inguinal hernia Assessment/Plan: POD#3 s/p exploratory laparotomy, right inguinal hernia repair with mesh for incarcerated right inguinal hernia, now with post-op ileus Clamp NGT x4hrs then suction for 30 minutes, if less than 100cc residual, pull NGT, abdominal XR ordered eval distension/dilation OOB DVT prophylaxis Patient discussed with Dr. Andrew Code(s): K40.90 - UNIL INGUINAL HERNIA, W/O OBST OR GANGR, NOT SPCF RECUR <Wendi Dickerson - Last Filed: 04/04/16 13:06> - Problems (1) SBO (small bowel obstruction) Code(s): K56.69 - OTHER INTESTINAL OBSTRUCTION (2) Inguinal hernia Code(s): K40.90 - UNIL INGUINAL HERNIA, W/O OBST OR GANGR, NOT SPCF RECUR <Abbe Andrew - Last Filed: 04/04/16 14:23>
--- NOTE | 2016-04-04 21:04 | PN ---
Progress Note, Physician History of Present Illness: Events noted - Current Medication List Current Medications: Active Medications Al Hydroxide/Mg Hydroxide (Mylanta Oral Suspension -) 30 ml PO Q8H PRN Aspirin (Asa -) 81 mg PO DAILY [facility] Last Admin: 04/04/16 10:37 Dose: Not Given Atorvastatin Calcium (Lipitor -) 10 mg PO HS [facility] Last Admin: 04/03/16 21:29 Dose: Not Given Bromocriptine Mesylate (Parlodel -) 2.5 mg PO HS [facility] Last Admin: 04/03/16 21:30 Dose: Not Given Bupropion HCl (Wellbutrin Xl -) 150 mg PO DAILY [facility] Last Admin: 04/04/16 10:38 Dose: Not Given Desmopressin Acetate (Ddavp -) 0.1 mg PO BID [facility] Last Admin: 04/04/16 10:38 Dose: Not Given Docusate Sodium (Colace -) 100 mg PO TID [facility] Last Admin: 04/04/16 13:49 Dose: Not Given Ferrous Sulfate (Feosol -) 325 mg PO BID [facility] Last Admin: 04/04/16 10:38 Dose: Not Given Heparin Sodium (Porcine) (Heparin -) 5,000 unit SQ BID [facility] Last Admin: 04/04/16 11:00 Dose: Not Given Famotidine/Sodium Chloride (Pepcid 20 Mg Premixed Ivpb -) 50 mls @ 100 mls/hr IVPB BID [facility] Last Admin: 04/04/16 10:39 Dose: 100 mls/hr Potassium Chloride/Dextrose/Sod Cl (D5-1/2ns+20 Meq Kcl -) 1,000 mls @ 100 mls/ hr IV ASDIR [facility] Last Admin: 04/04/16 15:18 Dose: 100 mls/hr [place] Carbonate (Eskalith -) 300 mg PO DAILY [facility] Last Admin: 04/04/16 10:38 Dose: Not Given Loratadine (Claritin -) 10 mg PO DAILY [facility] Last Admin: 04/04/16 10:37 Dose: Not Given Megestrol Acetate (Megace Oral Suspension -) 800 mg PO DAILY [facility] Last Admin: 04/04/16 10:38 Dose: Not Given (Clozapine [ Clozapine] 100 Mg) Patient's Own Medication (Non- Formulary) 100 mg PO BID [facility] Last Admin: 04/04/16 10:37 Dose: Not Given Pantoprazole Sodium (Protonix Packets For Oral Suspension -) 40 mg PO BID [facility] Last Admin: 04/04/16 10:38 Dose: Not Given Phenol/Menthol (Chloraseptic -) 1 spray MM Q6HPO PRN PRN Reason: SORE THROAT Valproate Sodium (Depacon Injection -) 500 mg IVPB BID [facility] Last Admin: 04/04/16 10:40 Dose: 500 mg - Objective Vital Signs: Vital Signs Temperature 98.5 F 04/04/16 19:24 Pulse Rate 73 04/04/16 19:24 Respiratory Rate 18 04/04/16 19:24 Blood Pressure 131/72 04/04/16 19:24 O2 Sat by Pulse Oximetry (%) 96 04/03/16 21:00 Neck: Yes: Supple Cardiovascular: Yes: WNL, Regular Rate and Rhythm Respiratory: Yes: WNL, Regular, CTA Bilaterally Gastrointestinal: Yes: Other ((+) tenderness at site of incision) Labs: CBC, BMP 04/03/16 07:30 04/03/16 07:30 INR, PTT INR 1.20 (0.82-1.09) H 03/31/16 19:30 Problem List - Problems (1) Inguinal hernia Assessment/Plan: S/P exp lap incarcerated RT inguinal hernia Advance diet as per surgery Cont IVF Code(s): K40.90 - UNIL INGUINAL HERNIA, W/O OBST OR GANGR, NOT SPCF RECUR (2) SBO (small bowel obstruction) Assessment/Plan: S/P lysis of adhesions Post-op ileus Pt pulled NGT Will cont to monitor Code(s): K56.69 - OTHER INTESTINAL OBSTRUCTION (3) Anemia Assessment/Plan: Cont feso4 Monitor H/H Code(s): D64.9 - ANEMIA, UNSPECIFIED (4) Schizophrenia Assessment/Plan: Cont IV depakote(while NPO) Cont clozapine/lithium Code(s): F20.9 - SCHIZOPHRENIA, UNSPECIFIED (5) Mental retardation Code(s): F79 - UNSPECIFIED INTELLECTUAL DISABILITIES
[2016-04-04] MEDS: ATORVASTATIN CA 10 MG TABLET (FP) PO SCH (21:28)
[2016-04-04] MEDS: BROMOCRIPTINE MESYLATE 2.5 MG TABLET PO SCH (21:32)
[2016-04-04] MEDS ORDERED: PT OWN MED DRAWER 7, Y5N ONE (22:09)
[2016-04-05] MEDS: DOCUSATE SODIUM 100 MG CAPSULE (FP) PO SCH ×3 (05:48→22:05)
[2016-04-05] MEDS: D5-1/2NS+20 MEQ KCL - 1,000 ML IV SCH ×2 (05:53→17:24)
[2016-04-05 07:13] LABS: BASOPHIL 0.4 % (0-2.0); MCH 29.6 pg (25.7-33.7); MCHC 34.2 g/dl (32.0-35.9); MEAN CELL VOLUME 86.6 fl (80-96); MEAN PLT VOLUME 7.8 fl (7.5-11.1); NEUTROPHILS 58.9 % (42.8-82.8); PLATELET COUNT 290 K/MM3 (134-434); RDW 14.1 % (11.9-15.9); WHITE BLOOD COUNT 5.5 K/mm3 (4.0-10.0)
[2016-04-05 07:58] LABS: ALBUMIN 1.9 g/dl (3.4-5.0); ALK PHOS 63 U/L (45-117); ANION GAP 10 (8-16); BILIRUBIN,TOTAL 0.6 mg/dL (0.2-1.0); CALCIUM 8.1 mg/dL (8.5-10.1); CO2 24 mmol/L (21-32); CREATININE 0.5 mg/dL (0.7-1.3); GLUCOSE,RANDOM 106 mg/dL (74-106); SGOT/AST 12 U/L (15-37); SGPT/ALT 12 U/L (12-78); TOT PROT 5.4 g/dl (6.4-8.2)
[2016-04-05] MEDS: ASPIRIN 81 MG CHEWABLE TABLETS PO SCH (09:15)
[2016-04-05] MEDS: DESMOPRESSIN ACETATE 0.1 MG TABLET PO SCH ×2 (09:15→22:06)
[2016-04-05] MEDS: LITHIUM CARBONATE 300 MG CAPSULE (FP) PO SCH (09:15)
[2016-04-05] MEDS: LORATADINE 10 MG TABLET PO SCH (09:15)
[2016-04-05] MEDS: FERROUS SO4 325 MG TABLET (FP) PO SCH ×2 (09:16→22:07)
[2016-04-05] MEDS: MEGESTROL ACETATE 400 MG/10 ML UNIT DOSE CUP PO SCH (09:16)
[2016-04-05] MEDS: PANTOPRAZOLE SOD 40 MG SUSPENSION PACKET PO SCH ×2 (09:16→22:05)
[2016-04-05] MEDS ORDERED: PT OWN MED DRAWER 7, Y5N ONE (09:19)
[2016-04-05] MEDS: FAMOTIDINE 20 MG/50 ML IVPB 50 ML IVPB SCH ×2 (09:27→22:05)
[2016-04-05] MEDS: HEPARIN NA (PORCINE) 5,000 UNITS/ML 1ML VIAL SQ SCH ×2 (09:27→22:07)
[2016-04-05] MEDS: VALPROATE SODIUM 500 MG/5 ML VIAL IVPB SCH ×2 (09:30→22:07)
--- NOTE | 2016-04-05 10:38 | PN ---
Progress Note (short form) - Note Progress Note: POD #4 s/p Repair right inguinal hernia (incarcerated) Per RN note, pt pulled his ngt at 11PM last night and refused reinsertion. He is resting comfortably without complaint. Passing flatus. Denies n/v/f/c, CP or SOB. AVSS. Afebrile. General: alert. nad. Abd: softly distended. magda intact. healing well. + bowel sounds in all quadrants. LE: soft. nt b/l Problem List - Problems (1) Status post right inguinal herniorrhaphy Assessment/Plan: Start clear liquids and advance as tolerated OOB and ambulate as tolerated. Continue medical management Code(s): Z98.89 - OTHER SPECIFIED POSTPROCEDURAL STATES * DO NOT USE * Z87.19 - PERSONAL HISTORY OF OTHER DISEASES OF THE DIGESTIVE SYSTEM
[2016-04-05] MEDS ORDERED: morphine CARPU-JECT 2 MG/1 ML DISP.SYRIN IVPUSH ONE (18:30)
--- NOTE | 2016-04-05 21:02 | PN ---
Progress Note, Physician History of Present Illness: Pt on clear liquid diet - Current Medication List Current Medications: Active Medications Al Hydroxide/Mg Hydroxide (Mylanta Oral Suspension -) 30 ml PO Q8H PRN Aspirin (Asa -) 81 mg PO DAILY [facility] Last Admin: 04/05/16 09:15 Dose: Not Given Atorvastatin Calcium (Lipitor -) 10 mg PO HS [facility] Last Admin: 04/04/16 21:28 Dose: 10 mg Bromocriptine Mesylate (Parlodel -) 2.5 mg PO HS [facility] Last Admin: 04/04/16 21:32 Dose: 2.5 mg Bupropion HCl (Wellbutrin Xl -) 150 mg PO DAILY [facility] Last Admin: 04/05/16 09:16 Dose: Not Given Desmopressin Acetate (Ddavp -) 0.1 mg PO BID [facility] Last Admin: 04/05/16 09:15 Dose: Not Given Docusate Sodium (Colace -) 100 mg PO TID [facility] Last Admin: 04/05/16 14:16 Dose: Not Given Ferrous Sulfate (Feosol -) 325 mg PO BID [facility] Last Admin: 04/05/16 09:16 Dose: Not Given Heparin Sodium (Porcine) (Heparin -) 5,000 unit SQ BID [facility] Last Admin: 04/05/16 09:27 Dose: 5,000 unit Famotidine/Sodium Chloride (Pepcid 20 Mg Premixed Ivpb -) 50 mls @ 100 mls/hr IVPB BID [facility] Last Admin: 04/05/16 09:27 Dose: 100 mls/hr Potassium Chloride/Dextrose/Sod Cl (D5-1/2ns+20 Meq Kcl -) 1,000 mls @ 100 mls/ hr IV ASDIR [facility] Last Admin: 04/05/16 17:24 Dose: 100 mls/hr [place] Carbonate (Eskalith -) 300 mg PO DAILY [facility] Last Admin: 04/05/16 09:15 Dose: Not Given Loratadine (Claritin -) 10 mg PO DAILY [facility] Last Admin: 04/05/16 09:15 Dose: Not Given Megestrol Acetate (Megace Oral Suspension -) 800 mg PO DAILY [facility] Last Admin: 04/05/16 09:16 Dose: Not Given (Clozapine [ Clozapine] 100 Mg) Patient's Own Medication (Non- Formulary) 100 mg PO BID [facility] Last Admin: 04/05/16 09:15 Dose: Not Given Pantoprazole Sodium (Protonix Packets For Oral Suspension -) 40 mg PO BID [facility] Last Admin: 04/05/16 09:16 Dose: Not Given Phenol/Menthol (Chloraseptic -) 1 spray MM Q6HPO PRN PRN Reason: SORE THROAT Valproate Sodium (Depacon Injection -) 500 mg IVPB BID [facility] Last Admin: 04/05/16 09:30 Dose: 500 mg - Objective Vital Signs: Vital Signs Temperature 98.2 F 04/05/16 14:00 Pulse Rate 94 H 04/05/16 14:00 Respiratory Rate 20 04/05/16 14:00 Blood Pressure 112/76 04/05/16 10:00 O2 Sat by Pulse Oximetry (%) 95 04/05/16 11:20 Cardiovascular: Yes: WNL, Regular Rate and Rhythm Respiratory: Yes: WNL, Regular, CTA Bilaterally Gastrointestinal: Yes: Tenderness Labs: CBC, BMP 04/05/16 05:35 04/05/16 05:35 INR, PTT INR 1.20 (0.82-1.09) H 03/31/16 19:30 Problem List - Problems (1) Inguinal hernia Assessment/Plan: S/P exp lap incarcerated RT inguinal hernia Clear liquids Cont IVF Code(s): K40.90 - UNIL INGUINAL HERNIA, W/O OBST OR GANGR, NOT SPCF RECUR (2) SBO (small bowel obstruction) Assessment/Plan: S/P lysis of adhesions Post-op ileus Code(s): K56.69 - OTHER INTESTINAL OBSTRUCTION (3) Anemia Assessment/Plan: Cont feso4 Monitor H/H Code(s): D64.9 - ANEMIA, UNSPECIFIED (4) Schizophrenia Code(s): F20.9 - SCHIZOPHRENIA, UNSPECIFIED (5) Mental retardation Code(s): F79 - UNSPECIFIED INTELLECTUAL DISABILITIES
[2016-04-05] MEDS: ATORVASTATIN CA 10 MG TABLET (FP) PO SCH (22:05)
[2016-04-05] MEDS: BROMOCRIPTINE MESYLATE 2.5 MG TABLET PO SCH (22:06)
[2016-04-06] MEDS: D5-1/2NS+20 MEQ KCL - 1,000 ML IV SCH ×2 (03:50→16:49)
[2016-04-06] MEDS: DOCUSATE SODIUM 100 MG CAPSULE (FP) PO SCH ×3 (05:50→22:34)
[2016-04-06] MEDS: FAMOTIDINE 20 MG/50 ML IVPB 50 ML IVPB SCH ×2 (10:44→22:34)
[2016-04-06] MEDS: ASPIRIN 81 MG CHEWABLE TABLETS PO SCH (10:46)
[2016-04-06] MEDS: LORATADINE 10 MG TABLET PO SCH (10:46)
[2016-04-06] MEDS: DESMOPRESSIN ACETATE 0.1 MG TABLET PO SCH ×2 (10:47→22:36)
[2016-04-06] MEDS: FERROUS SO4 325 MG TABLET (FP) PO SCH ×2 (10:47→22:36)
[2016-04-06] MEDS: LITHIUM CARBONATE 300 MG CAPSULE (FP) PO SCH (10:48)
[2016-04-06] MEDS: HEPARIN NA (PORCINE) 5,000 UNITS/ML 1ML VIAL SQ SCH ×2 (10:49→22:40)
[2016-04-06] MEDS: MEGESTROL ACETATE 400 MG/10 ML UNIT DOSE CUP PO SCH (10:49)
[2016-04-06] MEDS: VALPROATE SODIUM 500 MG/5 ML VIAL IVPB SCH ×2 (10:52→22:35)
[2016-04-06] MEDS: PANTOPRAZOLE SOD 40 MG SUSPENSION PACKET PO SCH ×2 (11:06→22:35)
--- NOTE | 2016-04-06 11:59 | PN ---
Progress Note (short form) - Note Progress Note: POD #5 s/p Repair right inguinal hernia (incarcerated) No acute events per RN notes. He is resting comfortably without complaint. Passing flatus. Started on clear liquid diet yesterday and is tolerating. Denies n/v/f/c, CP or SOB. AVSS. Afebrile. General: alert. nad. Abd: softly distended. RLQ & midline magda intact. + bowel sounds in all quadrants. LE: soft. nt b/l Problem List - Problems (1) Status post right inguinal herniorrhaphy Assessment/Plan: Advance diet as tolerated. Can d/c home once tolerating FULL diet. Patient to f/u w/ Dr. Andrew in his office for staple removal in 10 days No further surgical intervention. On behalf of Dr. Andrew, thank you for the opportunity to participate in your patient's care. Code(s): Z98.89 - OTHER SPECIFIED POSTPROCEDURAL STATES * DO NOT USE * Z87.19 - PERSONAL HISTORY OF OTHER DISEASES OF THE DIGESTIVE SYSTEM
--- NOTE | 2016-04-06 13:31 | PN ---
Progress Note (short form) - Note Progress Note: Surgery Attending Tolerated clear liquid diet. A: ileus resolved May advance as tolerated. D/C planning. Problem List - Problems (1) SBO (small bowel obstruction) Code(s): K56.69 - OTHER INTESTINAL OBSTRUCTION (2) Inguinal hernia Code(s): K40.90 - UNIL INGUINAL HERNIA, W/O OBST OR GANGR, NOT SPCF RECUR
[2016-04-06] MEDS: ACETAMINOPHEN 650 MG/20.3 ML ORAL SOLUTION (CUPS) PO PRN (15:07)
--- NOTE | 2016-04-06 21:33 | PN ---
Progress Note, Physician - Current Medication List Current Medications: Active Medications Acetaminophen (Tylenol Oral Solution -) 650 mg PO Q4H PRN PRN Reason: FEVER OR PAIN Last Admin: 04/06/16 15:07 Dose: 650 mg Al Hydroxide/Mg Hydroxide (Mylanta Oral Suspension -) 30 ml PO Q8H PRN Aspirin (Asa -) 81 mg PO DAILY [facility] Last Admin: 04/06/16 10:46 Dose: 81 mg Atorvastatin Calcium (Lipitor -) 10 mg PO HS [facility] Last Admin: 04/05/16 22:05 Dose: 10 mg Bromocriptine Mesylate (Parlodel -) 2.5 mg PO HS [facility] Last Admin: 04/05/16 22:06 Dose: 2.5 mg Bupropion HCl (Wellbutrin Xl -) 150 mg PO DAILY [facility] Last Admin: 04/06/16 10:48 Dose: 150 mg Desmopressin Acetate (Ddavp -) 0.1 mg PO BID [facility] Last Admin: 04/06/16 10:47 Dose: 0.1 mg Docusate Sodium (Colace -) 100 mg PO TID [facility] Last Admin: 04/06/16 15:08 Dose: 100 mg Ferrous Sulfate (Feosol -) 325 mg PO BID [facility] Last Admin: 04/06/16 10:47 Dose: 325 mg Heparin Sodium (Porcine) (Heparin -) 5,000 unit SQ BID [facility] Last Admin: 04/06/16 10:49 Dose: 5,000 unit Famotidine/Sodium Chloride (Pepcid 20 Mg Premixed Ivpb -) 50 mls @ 100 mls/hr IVPB BID [facility] Last Admin: 04/06/16 10:44 Dose: 100 mls/hr Potassium Chloride/Dextrose/Sod Cl (D5-1/2ns+20 Meq Kcl -) 1,000 mls @ 100 mls/ hr IV ASDIR [facility] Last Admin: 04/06/16 16:49 Dose: 100 mls/hr [place] Carbonate (Eskalith -) 300 mg PO DAILY [facility] Last Admin: 04/06/16 10:48 Dose: 300 mg Loratadine (Claritin -) 10 mg PO DAILY [facility] Last Admin: 04/06/16 10:46 Dose: 10 mg Megestrol Acetate (Megace Oral Suspension -) 800 mg PO DAILY [facility] Last Admin: 04/06/16 10:49 Dose: 800 mg (Clozapine [ Clozapine] 100 Mg) Patient's Own Medication (Non- Formulary) 100 mg PO BID [facility] Last Admin: 04/06/16 10:45 Dose: 100 mg Pantoprazole Sodium (Protonix Packets For Oral Suspension -) 40 mg PO BID [facility] Last Admin: 04/06/16 11:06 Dose: 40 mg Phenol/Menthol (Chloraseptic -) 1 spray MM Q6HPO PRN PRN Reason: SORE THROAT Valproate Sodium (Depacon Injection -) 500 mg IVPB BID [facility] Last Admin: 04/06/16 10:52 Dose: 500 mg - Objective Vital Signs: Vital Signs Temperature 98.1 F 04/06/16 14:00 Pulse Rate 88 04/06/16 14:00 Respiratory Rate 20 04/06/16 14:00 Blood Pressure 145/76 04/06/16 10:00 O2 Sat by Pulse Oximetry (%) 97 04/05/16 21:00 Constitutional: Yes: No Distress Neck: Yes: Supple Cardiovascular: Yes: WNL, Regular Rate and Rhythm Respiratory: Yes: WNL, Regular, CTA Bilaterally Gastrointestinal: Yes: Distention, Other ((+) tenderness surgical scar) Labs: CBC, BMP 04/05/16 05:35 04/05/16 05:35 INR, PTT INR 1.20 (0.82-1.09) H 03/31/16 19:30 Problem List - Problems (1) Inguinal hernia Assessment/Plan: S/P exp lap incarcerated RT inguinal hernia As per surgery Code(s): K40.90 - UNIL INGUINAL HERNIA, W/O OBST OR GANGR, NOT SPCF RECUR (2) SBO (small bowel obstruction) Assessment/Plan: S/P lysis of adhesions Post-op ileus Code(s): K56.69 - OTHER INTESTINAL OBSTRUCTION (3) Anemia Assessment/Plan: Cont feso4 Monitor H/H Code(s): D64.9 - ANEMIA, UNSPECIFIED (4) Schizophrenia Code(s): F20.9 - SCHIZOPHRENIA, UNSPECIFIED (5) Mental retardation Code(s): F79 - UNSPECIFIED INTELLECTUAL DISABILITIES
[2016-04-06] MEDS: ATORVASTATIN CA 10 MG TABLET (FP) PO SCH (22:34)
[2016-04-06] MEDS: BROMOCRIPTINE MESYLATE 2.5 MG TABLET PO SCH (22:36)
[2016-04-07] MEDS: DOCUSATE SODIUM 100 MG CAPSULE (FP) PO SCH ×3 (05:28→21:34)
--- NOTE | 2016-04-07 08:07 | PN ---
Addendum entered and electronically signed by Wendi Dickerson PA 04/07/16 09:57 : XR showing persistent ileus pattern clinically, pt without N/V/abd pain, passing gas- continue clears Monitor for N/V, if occurs, recommend hold diet and insert NGT Aggressive mobilization Original Note: Progress Note (short form) - Note Progress Note: Patient seen and examined. Patient is resting comfortably, states he has minimal soreness and has no other complaints. Patient denies nausea or vomiting. Per nursing, patient had limited appetite yesterday. He did have a BM yesterday and was passing some flatus yesterday. Per nursing, patient has not been OOB much. Last Vital Signs Temp Pulse Resp BP Pulse Ox 98.0 F 86 20 128/76 96 04/07/16 05:39 04/07/16 05:39 04/07/16 05:39 04/07/16 05:39 04/06/16 21:00 XR 04/06/16 afternoon- distended bowel loops, ileus Exam: Gen: NAD, resting comfortably Abd: Distended, soft, nontender, incisions clean/dry/intact <Wendi Dickerson - Last Filed: 04/07/16 08:18> - Note Progress Note: Surgery Attending Patient is passing flatus and stool Abdomen is less distended. FUA - ilues pattern Encourage ambulation Keep patient on clear or full liquid diet for now until distention resolves PT consult. Agree with EMMANUEL Dickerson's assessment and plan of management in general. <Abbe Andrew - Last Filed: 04/07/16 10:53> Problem List - Problems (1) Inguinal hernia Assessment/Plan: Monitor for nausea/vomiting Monitor for continued flatus/BM Monitor distension Abd xr clears OOB Code(s): K40.90 - UNIL INGUINAL HERNIA, W/O OBST OR GANGR, NOT SPCF RECUR <Wendi Dickerson - Last Filed: 04/07/16 08:18> - Problems (1) SBO (small bowel obstruction) Code(s): K56.69 - OTHER INTESTINAL OBSTRUCTION (2) Inguinal hernia Code(s): K40.90 - UNIL INGUINAL HERNIA, W/O OBST OR GANGR, NOT SPCF RECUR <Abbe Andrew - Last Filed: 04/07/16 10:53>
[2016-04-07] MEDS: HEPARIN NA (PORCINE) 5,000 UNITS/ML 1ML VIAL SQ SCH ×2 (10:29→21:34)
--- NOTE | 2016-04-07 10:55 | PN ---
Progress Note (short form) - Note Progress Note: Surgery Attending Patient is passing flatus and stool Abdomen is less distended. FUA - ilues pattern Encourage ambulation Keep patient on clear or full liquid diet for now until distention resolves PT consult. Agree with EMMANUEL Dickerson's assessment and plan of management in general. Problem List - Problems (1) SBO (small bowel obstruction) Code(s): K56.69 - OTHER INTESTINAL OBSTRUCTION (2) Inguinal hernia Code(s): K40.90 - UNIL INGUINAL HERNIA, W/O OBST OR GANGR, NOT SPCF RECUR
[2016-04-07] MEDS ORDERED: PT OWN MED DRAWER 7, Y5N ONE (11:00)
[2016-04-07] MEDS: ASPIRIN 81 MG CHEWABLE TABLETS PO SCH (11:07)
[2016-04-07] MEDS: LORATADINE 10 MG TABLET PO SCH (11:07)
[2016-04-07] MEDS: DESMOPRESSIN ACETATE 0.1 MG TABLET PO SCH ×2 (11:07→21:34)
[2016-04-07] MEDS: LITHIUM CARBONATE 300 MG CAPSULE (FP) PO SCH (11:08)
[2016-04-07] MEDS: FERROUS SO4 325 MG TABLET (FP) PO SCH ×2 (11:08→21:34)
[2016-04-07] MEDS: PANTOPRAZOLE SOD 40 MG SUSPENSION PACKET PO SCH ×2 (11:08→21:35)
[2016-04-07] MEDS: MEGESTROL ACETATE 400 MG/10 ML UNIT DOSE CUP PO SCH (11:08)
[2016-04-07] MEDS: VALPROATE SODIUM 500 MG/5 ML VIAL IVPB SCH ×2 (11:09→21:30)
[2016-04-07] MEDS: FAMOTIDINE 20 MG/50 ML IVPB 50 ML IVPB SCH ×2 (11:09→22:30)
[2016-04-07] MEDS: ACETAMINOPHEN 650 MG/20.3 ML ORAL SOLUTION (CUPS) PO PRN (12:36)
[2016-04-07] MEDS: BROMOCRIPTINE MESYLATE 2.5 MG TABLET PO SCH (21:34)
[2016-04-07] MEDS: ATORVASTATIN CA 10 MG TABLET (FP) PO SCH (21:34)
--- NOTE | 2016-04-07 23:11 | PN ---
Progress Note, Physician History of Present Illness: Pt on clear liquid diet - Current Medication List Current Medications: Active Medications Acetaminophen (Tylenol Oral Solution -) 650 mg PO Q4H PRN PRN Reason: FEVER OR PAIN Last Admin: 04/07/16 12:36 Dose: 650 mg Al Hydroxide/Mg Hydroxide (Mylanta Oral Suspension -) 30 ml PO Q8H PRN Aspirin (Asa -) 81 mg PO DAILY [facility] Last Admin: 04/07/16 11:07 Dose: Not Given Atorvastatin Calcium (Lipitor -) 10 mg PO HS [facility] Last Admin: 04/07/16 21:34 Dose: 10 mg Bromocriptine Mesylate (Parlodel -) 2.5 mg PO HS [facility] Last Admin: 04/07/16 21:34 Dose: 2.5 mg Bupropion HCl (Wellbutrin Xl -) 150 mg PO DAILY [facility] Last Admin: 04/07/16 11:08 Dose: Not Given Desmopressin Acetate (Ddavp -) 0.1 mg PO BID [facility] Last Admin: 04/07/16 21:34 Dose: 0.1 mg Docusate Sodium (Colace -) 100 mg PO TID [facility] Last Admin: 04/07/16 21:34 Dose: Not Given Ferrous Sulfate (Feosol -) 325 mg PO BID [facility] Last Admin: 04/07/16 21:34 Dose: Not Given Heparin Sodium (Porcine) (Heparin -) 5,000 unit SQ BID [facility] Last Admin: 04/07/16 21:34 Dose: 5,000 unit Famotidine/Sodium Chloride (Pepcid 20 Mg Premixed Ivpb -) 50 mls @ 100 mls/hr IVPB BID [facility] Last Admin: 04/07/16 11:09 Dose: 100 mls/hr Potassium Chloride/Dextrose/Sod Cl (D5-1/2ns+20 Meq Kcl -) 1,000 mls @ 100 mls/ hr IV ASDIR [facility] Last Admin: 04/06/16 16:49 Dose: 100 mls/hr [place] Carbonate (Eskalith -) 300 mg PO DAILY [facility] Last Admin: 04/07/16 11:08 Dose: Not Given Loratadine (Claritin -) 10 mg PO DAILY [facility] Last Admin: 04/07/16 11:07 Dose: Not Given Megestrol Acetate (Megace Oral Suspension -) 800 mg PO DAILY [facility] Last Admin: 04/07/16 11:08 Dose: Not Given (Clozapine [ Clozapine] 100 Mg) Patient's Own Medication (Non- Formulary) 100 mg PO BID [facility] Last Admin: 04/07/16 21:34 Dose: 100 mg Pantoprazole Sodium (Protonix Packets For Oral Suspension -) 40 mg PO BID [facility] Last Admin: 04/07/16 21:35 Dose: Not Given Phenol/Menthol (Chloraseptic -) 1 spray MM Q6HPO PRN PRN Reason: SORE THROAT Valproate Sodium (Depacon Injection -) 500 mg IVPB BID [facility] Last Admin: 04/07/16 21:30 Dose: 500 mg - Objective Vital Signs: Vital Signs Temperature 98.8 F 04/07/16 13:50 Pulse Rate 77 04/07/16 13:50 Respiratory Rate 18 04/07/16 13:50 Blood Pressure 128/76 04/07/16 05:39 O2 Sat by Pulse Oximetry (%) 96 04/07/16 09:00 Neck: Yes: Supple Cardiovascular: Yes: WNL, Regular Rate and Rhythm Respiratory: Yes: WNL, Regular, CTA Bilaterally Gastrointestinal: Yes: WNL, Normal Bowel Sounds, Soft Labs: CBC, BMP 04/05/16 05:35 04/05/16 05:35 INR, PTT INR 1.20 (0.82-1.09) H 03/31/16 19:30 Problem List - Problems (1) Inguinal hernia Code(s): K40.90 - UNIL INGUINAL HERNIA, W/O OBST OR GANGR, NOT SPCF RECUR (2) SBO (small bowel obstruction) Code(s): K56.69 - OTHER INTESTINAL OBSTRUCTION (3) Anemia Code(s): D64.9 - ANEMIA, UNSPECIFIED (4) Schizophrenia Code(s): F20.9 - SCHIZOPHRENIA, UNSPECIFIED (5) Mental retardation Code(s): F79 - UNSPECIFIED INTELLECTUAL DISABILITIES
[2016-04-07] MEDS: D5-1/2NS+20 MEQ KCL - 1,000 ML IV SCH (23:56)
[2016-04-08] MEDS: DOCUSATE SODIUM 100 MG CAPSULE (FP) PO SCH ×3 (05:53→22:19)
[2016-04-08 08:00] LABS: BASOPHIL 0.4 % (0-2.0); EOSINOPHIL 3.3 % (0-4.5); MCH 29.7 pg (25.7-33.7); MEAN CELL VOLUME 87.3 fl (80-96); NEUTROPHILS 62.2 % (42.8-82.8); PLATELET COUNT 303 K/MM3 (134-434); RDW 15.2 % (11.9-15.9); WHITE BLOOD COUNT 7.1 K/mm3 (4.0-10.0)
[2016-04-08 08:42] LABS: ALBUMIN 1.8 g/dl (3.4-5.0); ALK PHOS 66 U/L (45-117); ANION GAP 9 (8-16); BILIRUBIN,TOTAL 0.3 mg/dL (0.2-1.0); CALCIUM 7.9 mg/dL (8.5-10.1); CO2 26 mmol/L (21-32); CREATININE 0.5 mg/dL (0.7-1.3); GLUCOSE,RANDOM 105 mg/dL (74-106); SGOT/AST 18 U/L (15-37); SGPT/ALT 18 U/L (12-78); TOT PROT 5.4 g/dl (6.4-8.2)
[2016-04-08] MEDS ORDERED: PT OWN MED DRAWER 7, Y5N ONE (10:02)
[2016-04-08] MEDS: ASPIRIN 81 MG CHEWABLE TABLETS PO SCH (10:09)
[2016-04-08] MEDS: HEPARIN NA (PORCINE) 5,000 UNITS/ML 1ML VIAL SQ SCH (10:09)
[2016-04-08] MEDS: FERROUS SO4 325 MG TABLET (FP) PO SCH ×2 (10:09→22:19)
[2016-04-08] MEDS: LORATADINE 10 MG TABLET PO SCH (10:09)
[2016-04-08] MEDS: FAMOTIDINE 20 MG/50 ML IVPB 50 ML IVPB SCH ×2 (10:10→22:22)
[2016-04-08] MEDS: DESMOPRESSIN ACETATE 0.1 MG TABLET PO SCH ×2 (10:10→22:46)
[2016-04-08] MEDS: MEGESTROL ACETATE 400 MG/10 ML UNIT DOSE CUP PO SCH (10:10)
[2016-04-08] MEDS: PANTOPRAZOLE SOD 40 MG SUSPENSION PACKET PO SCH ×2 (10:11→22:30)
[2016-04-08] MEDS: VALPROATE SODIUM 500 MG/5 ML VIAL IVPB SCH ×2 (10:11→22:46)
[2016-04-08] MEDS: LITHIUM CARBONATE 300 MG CAPSULE (FP) PO SCH (10:11)
--- NOTE | 2016-04-08 11:33 | PN ---
Progress Note (short form) - Note Progress Note: Surgery Attending Patient continues to pass flatus and stool Abdomen is less distended, wounds intact, soft and non-tender A: ileus gradually resolving, may be secondary to antipsychotic medications P: Encourage ambulation May advance diet gradually as tolerated PT consult. Will be covered by Dr. Stone today and on 04/09/16. Problem List - Problems (1) SBO (small bowel obstruction) Code(s): K56.69 - OTHER INTESTINAL OBSTRUCTION (2) Inguinal hernia Code(s): K40.90 - UNIL INGUINAL HERNIA, W/O OBST OR GANGR, NOT SPCF RECUR
[2016-04-08] MEDS: D5-1/2NS+20 MEQ KCL - 1,000 ML IV SCH (21:00)
[2016-04-08] MEDS: ATORVASTATIN CA 10 MG TABLET (FP) PO SCH (22:19)
[2016-04-08] MEDS: BROMOCRIPTINE MESYLATE 2.5 MG TABLET PO SCH (22:46)
--- NOTE | 2016-04-08 23:10 | PN ---
Progress Note, Physician History of Present Illness: Pt tolerating diet - Current Medication List Current Medications: Active Medications Acetaminophen (Tylenol Oral Solution -) 650 mg PO Q4H PRN PRN Reason: FEVER OR PAIN Last Admin: 04/07/16 12:36 Dose: 650 mg Al Hydroxide/Mg Hydroxide (Mylanta Oral Suspension -) 30 ml PO Q8H PRN Aspirin (Asa -) 81 mg PO DAILY [facility] Last Admin: 04/08/16 10:09 Dose: 81 mg Atorvastatin Calcium (Lipitor -) 10 mg PO HS [facility] Last Admin: 04/08/16 22:19 Dose: 10 mg Bromocriptine Mesylate (Parlodel -) 2.5 mg PO HS [facility] Last Admin: 04/08/16 22:46 Dose: 2.5 mg Bupropion HCl (Wellbutrin Xl -) 150 mg PO DAILY [facility] Last Admin: 04/08/16 10:09 Dose: 150 mg Desmopressin Acetate (Ddavp -) 0.1 mg PO BID [facility] Last Admin: 04/08/16 22:46 Dose: 0.1 mg Docusate Sodium (Colace -) 100 mg PO TID [facility] Last Admin: 04/08/16 22:19 Dose: 100 mg Ferrous Sulfate (Feosol -) 325 mg PO BID [facility] Last Admin: 04/08/16 22:19 Dose: 325 mg Famotidine/Sodium Chloride (Pepcid 20 Mg Premixed Ivpb -) 50 mls @ 100 mls/hr IVPB BID [facility] Last Admin: 04/08/16 22:22 Dose: 100 mls/hr Potassium Chloride/Dextrose/Sod Cl (D5-1/2ns+20 Meq Kcl -) 1,000 mls @ 100 mls/ hr IV ASDIR [facility] Last Admin: 04/08/16 21:00 Dose: 100 mls/hr [place] Carbonate (Eskalith -) 300 mg PO DAILY [facility] Last Admin: 04/08/16 10:11 Dose: 300 mg Loratadine (Claritin -) 10 mg PO DAILY [facility] Last Admin: 04/08/16 10:09 Dose: 10 mg Megestrol Acetate (Megace Oral Suspension -) 800 mg PO DAILY [facility] Last Admin: 04/08/16 10:10 Dose: Not Given (Clozapine [ Clozapine] 100 Mg) Patient's Own Medication (Non- Formulary) 100 mg PO BID [facility] Last Admin: 04/08/16 22:19 Dose: 100 mg Pantoprazole Sodium (Protonix Packets For Oral Suspension -) 40 mg PO BID [facility] Last Admin: 04/08/16 22:30 Dose: 40 mg Phenol/Menthol (Chloraseptic -) 1 spray MM Q6HPO PRN PRN Reason: SORE THROAT Valproate Sodium (Depacon Injection -) 500 mg IVPB BID [facility] Last Admin: 04/08/16 22:46 Dose: 500 mg - Objective Vital Signs: Vital Signs Temperature 98.5 F 04/08/16 17:39 Pulse Rate 81 04/08/16 17:39 Respiratory Rate 20 04/08/16 17:39 Blood Pressure 131/73 04/08/16 17:39 O2 Sat by Pulse Oximetry (%) 96 04/07/16 09:00 Constitutional: Yes: No Distress Neck: Yes: Supple Cardiovascular: Yes: WNL, Regular Rate and Rhythm Respiratory: Yes: WNL, Regular, CTA Bilaterally Gastrointestinal: Yes: WNL, Normal Bowel Sounds, Soft Labs: CBC, BMP 04/08/16 07:25 04/08/16 07:25 INR, PTT INR 1.20 (0.82-1.09) H 03/31/16 19:30 Problem List - Problems (1) SBO (small bowel obstruction) Assessment/Plan: S/P lysis of adhesions Post-op ileus improved Diet advanced and pt tolerating Code(s): K56.69 - OTHER INTESTINAL OBSTRUCTION (2) Inguinal hernia Assessment/Plan: S/P exp lap incarcerated RT inguinal hernia Encourage ambulation PT eval Code(s): K40.90 - UNIL INGUINAL HERNIA, W/O OBST OR GANGR, NOT SPCF RECUR (3) Anemia Assessment/Plan: Cont feso4 Monitor H/H Code(s): D64.9 - ANEMIA, UNSPECIFIED (4) Schizophrenia Code(s): F20.9 - SCHIZOPHRENIA, UNSPECIFIED (5) Mental retardation Code(s): F79 - UNSPECIFIED INTELLECTUAL DISABILITIES
[2016-04-09] MEDS: DOCUSATE SODIUM 100 MG CAPSULE (FP) PO SCH ×3 (06:10→22:54)
[2016-04-09] MEDS: LORATADINE 10 MG TABLET PO SCH (09:45)
[2016-04-09] MEDS: ASPIRIN 81 MG CHEWABLE TABLETS PO SCH (09:45)
[2016-04-09] MEDS: DESMOPRESSIN ACETATE 0.1 MG TABLET PO SCH ×2 (09:46→22:53)
[2016-04-09] MEDS: VALPROATE SODIUM 500 MG/5 ML VIAL IVPB SCH ×2 (09:47→22:54)
[2016-04-09] MEDS: FERROUS SO4 325 MG TABLET (FP) PO SCH ×2 (09:47→22:53)
[2016-04-09] MEDS: LITHIUM CARBONATE 300 MG CAPSULE (FP) PO SCH (09:47)
[2016-04-09] MEDS: MEGESTROL ACETATE 400 MG/10 ML UNIT DOSE CUP PO SCH (09:48)
[2016-04-09] MEDS: PANTOPRAZOLE SOD 40 MG SUSPENSION PACKET PO SCH ×2 (09:48→22:54)
[2016-04-09] MEDS: FAMOTIDINE 20 MG/50 ML IVPB 50 ML IVPB SCH ×2 (09:48→22:54)
[2016-04-09] MEDS: D5-1/2NS+20 MEQ KCL - 1,000 ML IV SCH (10:00)
[2016-04-09] MEDS ORDERED: PT OWN MED DRAWER 7, Y5N ONE (22:00)
--- NOTE | 2016-04-09 22:31 | PN ---
Progress Note, Physician - Current Medication List Current Medications: Active Medications Acetaminophen (Tylenol Oral Solution -) 650 mg PO Q4H PRN PRN Reason: FEVER OR PAIN Last Admin: 04/07/16 12:36 Dose: 650 mg Al Hydroxide/Mg Hydroxide (Mylanta Oral Suspension -) 30 ml PO Q8H PRN Aspirin (Asa -) 81 mg PO DAILY [facility] Last Admin: 04/09/16 09:45 Dose: 81 mg Atorvastatin Calcium (Lipitor -) 10 mg PO HS [facility] Last Admin: 04/08/16 22:19 Dose: 10 mg Bromocriptine Mesylate (Parlodel -) 2.5 mg PO HS [facility] Last Admin: 04/08/16 22:46 Dose: 2.5 mg Bupropion HCl (Wellbutrin Xl -) 150 mg PO DAILY [facility] Last Admin: 04/09/16 09:48 Dose: 150 mg Desmopressin Acetate (Ddavp -) 0.1 mg PO BID [facility] Last Admin: 04/09/16 09:46 Dose: 0.1 mg Docusate Sodium (Colace -) 100 mg PO TID [facility] Last Admin: 04/09/16 14:52 Dose: Not Given Ferrous Sulfate (Feosol -) 325 mg PO BID [facility] Last Admin: 04/09/16 09:47 Dose: 325 mg Famotidine/Sodium Chloride (Pepcid 20 Mg Premixed Ivpb -) 50 mls @ 100 mls/hr IVPB BID [facility] Last Admin: 04/09/16 09:48 Dose: 100 mls/hr [place] Carbonate (Eskalith -) 300 mg PO DAILY [facility] Last Admin: 04/09/16 09:47 Dose: 300 mg Loratadine (Claritin -) 10 mg PO DAILY [facility] Last Admin: 04/09/16 09:45 Dose: 10 mg Megestrol Acetate (Megace Oral Suspension -) 800 mg PO DAILY [facility] Last Admin: 04/09/16 09:48 Dose: Not Given (Clozapine [ Clozapine] 100 Mg) Patient's Own Medication (Non- Formulary) 100 mg PO BID [facility] Last Admin: 04/09/16 09:45 Dose: 100 mg Pantoprazole Sodium (Protonix Packets For Oral Suspension -) 40 mg PO BID [facility] Last Admin: 04/09/16 09:48 Dose: 40 mg Phenol/Menthol (Chloraseptic -) 1 spray MM Q6HPO PRN PRN Reason: SORE THROAT Valproate Sodium (Depacon Injection -) 500 mg IVPB BID [facility] Last Admin: 04/09/16 09:47 Dose: 500 mg - Objective Vital Signs: Vital Signs Temperature 99.3 F 04/09/16 22:14 Pulse Rate 86 04/09/16 22:14 Respiratory Rate 20 04/09/16 22:14 Blood Pressure 113/73 04/09/16 22:14 O2 Sat by Pulse Oximetry (%) 96 04/07/16 09:00 Labs: CBC, BMP 04/08/16 07:25 04/08/16 07:25 INR, PTT INR 1.20 (0.82-1.09) H 03/31/16 19:30 Problem List - Problems (1) SBO (small bowel obstruction) Code(s): K56.69 - OTHER INTESTINAL OBSTRUCTION (2) Inguinal hernia Code(s): K40.90 - UNIL INGUINAL HERNIA, W/O OBST OR GANGR, NOT SPCF RECUR (3) Anemia Code(s): D64.9 - ANEMIA, UNSPECIFIED (4) Schizophrenia Code(s): F20.9 - SCHIZOPHRENIA, UNSPECIFIED (5) Mental retardation Code(s): F79 - UNSPECIFIED INTELLECTUAL DISABILITIES
[2016-04-09] MEDS: ATORVASTATIN CA 10 MG TABLET (FP) PO SCH (22:54)
[2016-04-09] MEDS: BROMOCRIPTINE MESYLATE 2.5 MG TABLET PO SCH (22:54)
[2016-04-10] MEDS: DOCUSATE SODIUM 100 MG CAPSULE (FP) PO SCH ×2 (06:20→22:14)
[2016-04-10] MEDS: ASPIRIN 81 MG CHEWABLE TABLETS PO SCH (10:46)
[2016-04-10] MEDS: PANTOPRAZOLE SOD 40 MG SUSPENSION PACKET PO SCH ×2 (10:50→22:13)
[2016-04-10] MEDS: MEGESTROL ACETATE 400 MG/10 ML UNIT DOSE CUP PO SCH (10:50)
[2016-04-10] MEDS: VALPROATE SODIUM 500 MG/5 ML VIAL IVPB SCH (10:50)
[2016-04-10] MEDS: LITHIUM CARBONATE 300 MG CAPSULE (FP) PO SCH (10:50)
[2016-04-10] MEDS: FERROUS SO4 325 MG TABLET (FP) PO SCH ×2 (10:50→22:13)
[2016-04-10] MEDS: DESMOPRESSIN ACETATE 0.1 MG TABLET PO SCH ×2 (10:50→22:15)
[2016-04-10] MEDS: LORATADINE 10 MG TABLET PO SCH (10:50)
--- NOTE | 2016-04-10 11:00 | PN ---
[id number]. Bowel movements documented on several days. Ambulated to nursing station. Vital Signs Period Temp Pulse Resp BP Sys/Reddy Pulse Ox Last 24 Hr 98.0 F-99.3 F 82-86 20-20 108-116/70-78 GEN: appears comfortable ABD: soft, non-distended, non-tender. inc c/d/i with symone. CBC, BMP 04/08/16 07:25 04/08/16 07:25 <Pepper Maurer - Last Filed: 04/10/16 11:29> - Note Progress Note: Surgery Attending Patient seen and examined. Tolerating regular . Wounds healing well. Symone removed and steri-strips applied Agree with EMMANUEL Maurer's assessment and plan of management. D/C planning. <Abbe Andrew - Last Filed: 04/10/16 13:48> Problem List - Problems (1) SBO (small bowel obstruction) Assessment/Plan: pt doing well surgically, POD#9 continue oral medications and diet plan for removal of symone prior to discharge Change all medication to oral. Continue oob/ambulate Code(s): K56.69 - OTHER INTESTINAL OBSTRUCTION <Pepper Maurer - Last Filed: 04/10/16 11:29> - Problems (1) SBO (small bowel obstruction) Code(s): K56.69 - OTHER INTESTINAL OBSTRUCTION (2) Inguinal hernia Code(s): K40.90 - UNIL INGUINAL HERNIA, W/O OBST OR GANGR, NOT SPCF RECUR <Abbe Andrew - Last Filed: 04/10/16 13:48>
[2016-04-10] MEDS: ACETAMINOPHEN 650 MG/20.3 ML ORAL SOLUTION (CUPS) PO PRN (12:26)
[2016-04-10] MEDS: FAMOTIDINE 20 MG/50 ML IVPB 50 ML IVPB SCH ×3 (12:29→22:54)
--- NOTE | 2016-04-10 17:25 | PN ---
Progress Note (short form) - Note Progress Note: Medical coverage for Dr. Veloz Subjective: The patient was seen and examined at the bedside, he is sleeping. Opening eyes, but does not want to speak Tolerating diet OOB ambulating Walked to nursing station per surgery note Current Medications Generic Name Dose Route Start Last Admin Trade Name Freq PRN Reason Stop Dose Admin Acetaminophen 650 mg 04/06/16 13:57 04/10/16 12:26 Tylenol Oral Solution - PO 650 mg Q4H PRN Administration FEVER OR PAIN Al Hydroxide/Mg Hydroxide 30 ml 04/01/16 19:45 Mylanta Oral Suspension - PO Q8H PRN Aspirin 81 mg 04/02/16 10:00 04/10/16 10:46 Asa - PO 81 mg DAILY ISATU Administration Atorvastatin Calcium 10 mg 04/01/16 22:00 04/09/16 22:54 Lipitor - PO 10 mg HS ISATU Administration Bromocriptine Mesylate 2.5 mg 04/01/16 22:00 04/09/16 22:54 Parlodel - PO 2.5 mg HS ISATU Administration Bupropion HCl 150 mg 04/02/16 10:00 04/10/16 10:50 Wellbutrin Xl - PO 150 mg DAILY ISATU Administration Desmopressin Acetate 0.1 mg 04/01/16 22:00 04/10/16 10:50 Ddavp - PO 0.1 mg BID ISATU Administration Docusate Sodium 100 mg 04/01/16 22:00 04/10/16 06:20 Colace - PO Not Given TID ISATU Ferrous Sulfate 325 mg 04/01/16 22:00 04/10/16 10:50 Feosol - PO 325 mg BID ISATU Administration Famotidine/Sodium Chloride 50 mls @ 100 mls/hr 04/02/16 22:00 04/10/16 12:29 Pepcid 20 Mg Premixed Ivpb - IVPB 100 mls/hr BID ISATU Administration Soper Carbonate 300 mg 04/02/16 10:00 04/10/16 10:50 Eskalith - PO 300 mg DAILY ISATU Administration Loratadine 10 mg 04/02/16 10:00 04/10/16 10:50 Claritin - PO 10 mg DAILY ISATU Administration Megestrol Acetate 800 mg 04/02/16 10:00 04/10/16 10:50 Megace Oral Suspension - PO 800 mg DAILY ISATU Administration (Clozapine [ 100 mg 04/01/16 22:00 04/10/16 10:50 Clozapine] 100 Mg) PO 100 mg Patient's Own BID ISATU Administration Medication (Non- Formulary) Pantoprazole Sodium 40 mg 04/01/16 22:00 04/10/16 10:50 Protonix Packets For Oral Suspension - PO 40 mg BID ISATU Administration Phenol/Menthol 1 spray 04/03/16 11:20 Chloraseptic - MM Q6HPO PRN SORE THROAT Valproic Acid 500 mg 04/10/16 22:00 Depakene - PO BID ISATU Objective: Vital Signs Period Temp Pulse Resp BP Sys/Reddy Pulse Ox Last 24 Hr 98.3 F-99.3 F 82-88 18-20 108-113/70-73 Physical Exam: General: NAD, appears comfortable Lungs: CTA bilaterally Heart: RRR, S1S2 Abd: Midline abdominal incision and RLQ horizontal incision with steristrips, c/ d/i. Soft, non-tender, non-distended. Ext: Warm, well-perfused. 2+ DP/PT bilaterally Neuro: Patient sleeping and is uncooperative with neuro exam CBCD WBC 7.1 K/mm3 (4.0-10.0) 04/08/16 07:25 RBC 3.27 M/mm3 (4.00-5.60) L 04/08/16 07:25 Hgb 9.7 GM/dL (11.7-16.9) L 04/08/16 07:25 Hct 28.5 % (35.4-49) L 04/08/16 07:25 MCV 87.3 fl (80-96) 04/08/16 07:25 MCHC 34.0 g/dl (32.0-35.9) 04/08/16 07:25 RDW 15.2 % (11.9-15.9) 04/08/16 07:25 Plt Count 303 K/MM3 (134-434) 04/08/16 07:25 MPV 7.0 fl (7.5-11.1) L D 04/08/16 07:25 CMP Sodium 139 mmol/L (136-145) 04/08/16 07:25 Potassium 3.6 mmol/L (3.5-5.1) 04/08/16 07:25 Chloride 104 mmol/L (98-107) 04/08/16 07:25 Carbon Dioxide 26 mmol/L (21-32) 04/08/16 07:25 Anion Gap 9 (8-16) 04/08/16 07:25 BUN 3 mg/dL (7-18) L D 04/08/16 07:25 Creatinine 0.5 mg/dL (0.7-1.3) L 04/08/16 07:25 Creat Clearance w eGFR > 60 (>60) 04/08/16 07:25 Random Glucose 105 mg/dL (74-106) 04/08/16 07:25 Calcium 7.9 mg/dL (8.5-10.1) L 04/08/16 07:25 Total Bilirubin 0.3 mg/dL (0.2-1.0) D 04/08/16 07:25 AST 18 U/L (15-37) D 04/08/16 07:25 ALT 18 U/L (12-78) D 04/08/16 07:25 Alkaline Phosphatase 66 U/L (45-117) 04/08/16 07:25 Total Protein 5.4 g/dl (6.4-8.2) L 04/08/16 07:25 Albumin 1.8 g/dl (3.4-5.0) L 04/08/16 07:25 Assessment: This is a 50 year old male with PMHx of mild MR, schizophrenia, bipolar, cleft palate, organic brain bleed, mitral and tricuspid valve prolapse , GERD, bilateral renal cysts and siddiqui's esophagus, who presents to the emergency department with right sided abdominal pain due to a right inguinal hernia. Plan: 1) GI: Incarcerated right inguinal hernia s/p repair on 04/01/16 - Course complicated by post op ileus - Patient tolerating diet - OOB ambulating - Symone removed, now with steristrips, c/d/i - Rest per surgery - Appreciate surgery consult 2) Psych: schizophrenia, bipolar disorder, mild MR - Continue Wellbutrin - Continue Soper - Continue valproic acid 3) F/E/N: - Monitor electrolytes - Regular diet - Megace po daily 4) Prophylaxis: - OOB ambulating - SCDs bilaterally - Heparin 5,000u sq tid 6) Dispo: - Once condition improves CODE STATUS: FULL CODE Visit type - Emergency Visit Emergency Visit: Yes ED Registration Date: 04/01/16 Care time: The patient presented to the Emergency Department on the above date and was hospitalized for further evaluation of their emergent condition. - New Patient This patient is new to me today: Yes Date on this admission: 04/10/16 - Critical Care Critical Care patient: No
[2016-04-10] MEDS: ATORVASTATIN CA 10 MG TABLET (FP) PO SCH (22:13)
[2016-04-10] MEDS: VALPROIC ACID 250 MG CAPSULE PO SCH (22:14)
[2016-04-10] MEDS: BROMOCRIPTINE MESYLATE 2.5 MG TABLET PO SCH (22:15)
[2016-04-11] MEDS: RANITIDINE HCL 150 MG TABLET (FP) PO SCH ×3 (00:14→21:58)
[2016-04-11] MEDS: DOCUSATE SODIUM 100 MG CAPSULE (FP) PO SCH ×3 (06:33→21:58)
[2016-04-11] MEDS: LORATADINE 10 MG TABLET PO SCH (10:30)
[2016-04-11] MEDS: ASPIRIN 81 MG CHEWABLE TABLETS PO SCH (10:30)
[2016-04-11] MEDS: LITHIUM CARBONATE 300 MG CAPSULE (FP) PO SCH (10:31)
[2016-04-11] MEDS: PANTOPRAZOLE SOD 40 MG SUSPENSION PACKET PO SCH ×2 (10:31→21:59)
[2016-04-11] MEDS: DESMOPRESSIN ACETATE 0.1 MG TABLET PO SCH ×2 (10:31→22:00)
[2016-04-11] MEDS: FERROUS SO4 325 MG TABLET (FP) PO SCH ×2 (10:31→21:58)
[2016-04-11] MEDS: VALPROIC ACID 250 MG CAPSULE PO SCH ×2 (10:31→22:00)
[2016-04-11] MEDS: MEGESTROL ACETATE 400 MG/10 ML UNIT DOSE CUP PO SCH (10:31)
--- NOTE | 2016-04-11 12:32 | PN ---
Progress Note, Physician History of Present Illness: NO COMPLAINTS IN BED - Current Medication List Current Medications: Active Medications Acetaminophen (Tylenol Oral Solution -) 650 mg PO Q4H PRN PRN Reason: FEVER OR PAIN Last Admin: 04/10/16 12:26 Dose: 650 mg Al Hydroxide/Mg Hydroxide (Mylanta Oral Suspension -) 30 ml PO Q8H PRN Aspirin (Asa -) 81 mg PO DAILY [facility] Last Admin: 04/11/16 10:30 Dose: 81 mg Atorvastatin Calcium (Lipitor -) 10 mg PO HS [facility] Last Admin: 04/10/16 22:13 Dose: 10 mg Bromocriptine Mesylate (Parlodel -) 2.5 mg PO HS [facility] Last Admin: 04/10/16 22:15 Dose: 2.5 mg Bupropion HCl (Wellbutrin Xl -) 150 mg PO DAILY [facility] Last Admin: 04/11/16 10:31 Dose: 150 mg Desmopressin Acetate (Ddavp -) 0.1 mg PO BID [facility] Last Admin: 04/11/16 10:31 Dose: 0.1 mg Docusate Sodium (Colace -) 100 mg PO TID [facility] Last Admin: 04/11/16 06:33 Dose: 100 mg Ferrous Sulfate (Feosol -) 325 mg PO BID [facility] Last Admin: 04/11/16 10:31 Dose: 325 mg [place] Carbonate (Eskalith -) 300 mg PO DAILY [facility] Last Admin: 04/11/16 10:31 Dose: 300 mg Loratadine (Claritin -) 10 mg PO DAILY [facility] Last Admin: 04/11/16 10:30 Dose: 10 mg Megestrol Acetate (Megace Oral Suspension -) 800 mg PO DAILY [facility] Last Admin: 04/11/16 10:31 Dose: 800 mg (Clozapine [ Clozapine] 100 Mg) Patient's Own Medication (Non- Formulary) 100 mg PO BID [facility] Last Admin: 04/11/16 10:30 Dose: 100 mg Pantoprazole Sodium (Protonix Packets For Oral Suspension -) 40 mg PO BID [facility] Last Admin: 04/11/16 10:31 Dose: 40 mg Phenol/Menthol (Chloraseptic -) 1 spray MM Q6HPO PRN PRN Reason: SORE THROAT Ranitidine HCl (Zantac -) 150 mg PO BID [facility] Last Admin: 01/29/17 10:31 Dose: 150 mg Valproic Acid (Depakene -) 500 mg PO BID ISATU Last Admin: 04/11/16 10:31 Dose: 500 mg - Objective Vital Signs: Vital Signs Temperature 97.4 F L 04/11/16 06:00 Pulse Rate 86 04/11/16 10:04 Respiratory Rate 20 04/11/16 06:00 Blood Pressure 106/75 04/11/16 06:00 O2 Sat by Pulse Oximetry (%) 92 L 04/11/16 10:04 Cardiovascular: Yes: Regular Rate and Rhythm Respiratory: Yes: Regular, CTA Bilaterally Gastrointestinal: Yes: Normal Bowel Sounds, Soft Wound/Incision: Yes: Steri Strips Labs: CBC, BMP 04/08/16 07:25 04/08/16 07:25 INR, PTT INR 1.20 (0.82-1.09) H 03/31/16 19:30 Problem List - Problems (1) Status post right inguinal herniorrhaphy Assessment/Plan: Incarcerated right inguinal hernia s/p repair on 04/01/16 - Course complicated by post op ileus - Patient tolerating diet - OOB ambulating - [place] removed, now with steristrips, c/d/i - Rest per surgery - Appreciate surgery consult Code(s): Z98.89 - OTHER SPECIFIED POSTPROCEDURAL STATES * DO NOT USE * Z87.19 - PERSONAL HISTORY OF OTHER DISEASES OF THE DIGESTIVE SYSTEM (2) Schizophrenia Assessment/Plan: - Continue Wellbutrin - Continue Lyon - Continue valproic acid Code(s): F20.9 - SCHIZOPHRENIA, UNSPECIFIED (3) Mental retardation Assessment/Plan: ABOVE Code(s): F79 - UNSPECIFIED INTELLECTUAL DISABILITIES
[2016-04-11] MEDS: ATORVASTATIN CA 10 MG TABLET (FP) PO SCH (21:58)
[2016-04-11] MEDS: BROMOCRIPTINE MESYLATE 2.5 MG TABLET PO SCH (22:00)
[2016-04-12 05:31] VITALS: BP 107/66
[2016-04-12] MEDS: DOCUSATE SODIUM 100 MG CAPSULE (FP) PO SCH ×2 (06:33→14:53)
[2016-04-12] MEDS: LORATADINE 10 MG TABLET PO SCH (10:33)
[2016-04-12] MEDS: DESMOPRESSIN ACETATE 0.1 MG TABLET PO SCH (10:33)
[2016-04-12] MEDS: ASPIRIN 81 MG CHEWABLE TABLETS PO SCH (10:33)
[2016-04-12] MEDS: MEGESTROL ACETATE 400 MG/10 ML UNIT DOSE CUP PO SCH (10:34)
[2016-04-12] MEDS: LITHIUM CARBONATE 300 MG CAPSULE (FP) PO SCH (10:34)
[2016-04-12] MEDS: VALPROIC ACID 250 MG CAPSULE PO SCH (10:34)
[2016-04-12] MEDS: PANTOPRAZOLE SOD 40 MG SUSPENSION PACKET PO SCH (10:34)
[2016-04-12] MEDS: RANITIDINE HCL 150 MG TABLET (FP) PO SCH (10:34)
[2016-04-12] MEDS: FERROUS SO4 325 MG TABLET (FP) PO SCH (10:34)
--- NOTE | 2016-04-12 11:48 | DS ---
Physical Examination Vital Signs: Vital Signs Temperature 98.4 F 04/12/16 05:30 Pulse Rate 89 04/12/16 05:30 Respiratory Rate 20 04/12/16 05:30 Blood Pressure 107/66 04/12/16 05:30 O2 Sat by Pulse Oximetry (%) 97 04/12/16 09:00 Constitutional: Yes: Calm, Thin, Other (eyes open not talking) Neck: Yes: Trachea Midline Cardiovascular: Yes: Regular Rate and Rhythm, S1, S2 Respiratory: Yes: CTA Bilaterally Gastrointestinal: Yes: Normal Bowel Sounds, Soft Edema: No Neurological: Yes: Other (open eyes to his name looks at me but not talking) Labs: CBC, BMP 04/08/16 07:25 04/08/16 07:25 Discharge Summary Reason For Visit: INGUNIAL HERNIA WITH OBSTRUCTION Current Active Problems Anemia (Acute) SBO (small bowel obstruction) (Acute) Status post right inguinal herniorrhaphy (Acute) Hospital Course: The patient is a 50 year old male presenting with an aide, with a significant past medical history of mild MR, schizophrenia, bipolar, cleft palate, organic brain bleed, mitral and tricuspid valve prolapse, GERD, bilateral renal cysts and siddiqui's esophagus, who presents to the emergency department with right sided abdominal pain due to a right inguinal hernia. He notes that he has had this hernia for a long time but 3 weeks ago the hernia ballooned. He also reports decrease appetite, mild nausea and change in bowel movements. He states that the pain is ranging from moderate to severe, without radiation. The patient denies chest pain, shortness of breath, headache and dizziness. Denies fever, chills, vomit, diarrhea and constipation. Denies dysuria, frequency, urgency and hematuria. Allergies: None Past surgical history: Hernia Repair and pneumothorax Social history: No alcohol, tobacco or drug use reported PMD - Dr. Hiren Pike found to have SBO secondary to incarceranted hernia s/p exp laprotomy magda removed steri strips now ready to go home, has had BM and pasing flatus , has ambulated to nursing station per nursing records conitune same meds for schizophernia Condition: Improved - Instructions Diet, Activity, Other Instructions: Dr Go Discharge Instructions Dear YARITZA NASH, Post Operative Instructions Physical activity Resume your normal everyday activity as tolerated no heavy lifting or exercise until seen by your surgeon. You may walk unlimited brando of and climb stairs. You may resume driving the car when you feel safe and comfortable behind the wheel. Wound care If you have a bandage, leave it on, and keep dry for 48-72 hours. After that time discard the outer bandage. If there are tapes on the skin under the outer bandage, leave them in place. They will peel off in the next 7 to 10 days. Do Not Peel them off. You may shower the day after surgery. If there are tapes present on the skin, you may shower over them. Diet There are no dietary restrictions. Eat healthy, high-fiber foods. Drink 6 to 8 glasses of liquid each day. This will assist in keeping your bowels are regular. Pain management You may take Tylenol or acetaminophen or Ibuprofen (for example, Motrin, Advil etc.) Any pain prescription medication ordered should be taken as prescribed for moderate to severe pain. Call Dr. Andrew for any of the following: Severe pain not relieved by medication Fever of 101 or higher Excessive bleeding or drainage on dressing Inability to urinate Call the office at [phone] for an appointment in seven days. Referrals: Abbe Andrew MD [Staff Physician] - Hiren Pike MD [Primary Care Provider] - Disposition: [facility] - Home Medications Comprehensive Discharge Medication List: Ambulatory Orders Desmopressin Acetate 0.1 mg PO BID #60 tablet 07/26/14 Bupropion HCl [Wellbutrin Xl -] 150 mg PO DAILY 05/23/15 Clonazepam [Klonopin -] 0.5 mg PO HS PRN 05/23/15 Clozapine 200 mg PO BID 05/23/15 Ferrous Sulfate [Feosol] 325 mg PO BID 05/23/15 [place] Carbonate [Eskalith -] 300 mg PO DAILY 05/23/15 Mag Hydrox/Al Hydrox/Simeth [Antacid-[place]as Liquid] 355 ml PO PRN 05/23/15 Megestrol Acetate Oral Susp [Megace Oral Suspension -] 800 mg PO DAILY 05/23/15 Valproate Sodium Liquid [Depakene Oral Solution -] 500 mg PO BID 05/23/15 Omeprazole [Prilosec (RX)] 40 mg PO BID #0 05/26/15 Bromocriptine Mesylate 2.5 tab PO HS 03/19/16 Loratadine 10 tab PO DAILY 03/19/16 Docusate Sodium [Colace -] 100 mg PO TID #90 capsule 03/22/16 Aspirin [ASA -] 81 mg PO DAILY #30 tab.chew 03/23/16 Levofloxacin [Levaquin] 500 mg PO DAILY #10 tablet 03/23/16 Simvastatin [Zocor -] 20 mg PO HS #30 tablet 03/23/16
[2016-04-12] MEDS: ACETAMINOPHEN 650 MG/20.3 ML ORAL SOLUTION (CUPS) PO PRN (13:11)
[2016-04-12] MEDS ORDERED: PT OWN MED DRAWER 7, Y5N ONE ×2 (14:55→18:08)
[2016-04-12 15:39] VITALS: PULSE 91; TEMP 98
== END 2016-04-12 18:37 | disposition home or self-care (01) | DRG 336 ==
LOC: JER 16:53 → UNDOADMIN 04-01 01:22 → JERBED 04-01 01:22 → J6S 04-01 20:10 → JERBED 04-01 20:10
PROVIDERS: ADMIT Internal Medicine; ATTEND Internal Medicine
PROC: 0DNW0ZZ Release Peritoneum, Open Approach (ICD-10-PCS; 2016-04-01)
PROC: 0WJG0ZZ Inspection of Peritoneal Cavity, Open Approach (ICD-10-PCS; 2016-04-01)
PROC: 0YU50JZ Supplement Right Inguinal Region with Synthetic Substitute, Open Approach (ICD-10-PCS; principal; 2016-04-01 06:00)
DX: K40.30 Unilateral inguinal hernia, with obstruction, without gangrene, not specified as recurrent (principal); K56.5 Intestinal adhesions [bands] with obstruction (postinfection); K22.10 Ulcer of esophagus without bleeding; J84.9 Interstitial pulmonary disease, unspecified; K91.3 Postprocedural intestinal obstruction; F70 Mild intellectual disabilities; F20.9 Schizophrenia, unspecified; F31.9 Bipolar disorder, unspecified; K21.9 Gastro-esophageal reflux disease without esophagitis; N28.1 Cyst of kidney, acquired; Y83.8 Other surgical procedures as the cause of abnormal reaction of the patient, or of later complication, without mention of misadventure at the time of the procedure; D64.9 Anemia, unspecified
CPT/HCPCS: 36415; 71010-TC; 74000-TC; 74020-TC; 74177-TC; 80048; 80053; 83605; 85025; 85610; 85730; 86850; 86900; 86901; 88302-TC; 88305-TC; 88341-TC; 93005; 93010; 94760; 97116-GP; 97162-PG; 99283-25; J1644; Q9967

== ENCOUNTER 2016-05-11 14:15 | Emergency (ER) | payer OTHER ==
[2016-05-11 14:22] VITALS: TEMP 102.7; BMI 28.8
[2016-05-11] MEDS ORDERED: SODIUM CHLORIDE 0.9% 1000 ML INFUS.BAG IV PRN (14:23)
[2016-05-11] MEDS ORDERED: SODIUM CHLORIDE 1,000 ML IV STA (14:23)
--- NOTE | 2016-05-11 14:23 | PDOC ---
Rapid Medical Evaluation Time Seen by Provider: 05/11/16 14:17 Medical Evaluation: Allergies Allergy/AdvReac Type Severity Reaction Status Date / Time chicken derived Allergy Vomiting Verified 04/09/16 14:31 egg Allergy Vomiting Verified 04/09/16 14:30 05/11/16 14:18 I have performed a brief in-person evaluation of this patient. The patient presents with a chief complaint of: fever Pertinent physical exam findings: T 102 symmetric BS abd soft I have ordered the following: sepsis protocol initiated 2/2 fever and tachycardia The patient will proceed to the ED for further evaluation.
[2016-05-11] MEDS ORDERED: ACETAMINOPHEN 500 MG TABLET (FP) PO ONE (14:24)
[2016-05-11] MEDS ORDERED: ACETAMINOPHEN 325 MG TABLET (FP) ONE (14:55)
[2016-05-11 15:22] LABS: VENOUS PH 7.39 (7.32-7.42)
--- NOTE | 2016-05-11 15:23 | PDOC ---
History of Present Illness - General History Source: Patient, Old Records Exam Limitations: No Limitations <[email or web address] - Last Filed: 05/11/16 15:21> - General History Source: Patient, Care Provider Exam Limitations: Clinical Condition (MR) - History of Present Illness Initial Comments: 05/11/16 15:33 The patient is a 50 year old male presenting with his patient care representative, with a significant past medical history of mild MR, schizophrenia, bipolar, cleft palate, organic brain bleed, mitral and tricuspid valve prolapse, GERD, bilateral renal cysts and siddiqui's esophagus, who presents to the emergency department with cough and fever. The patients cough is dry in nature. The patient denies chest pain, shortness of breath, headache and dizziness. Denies nausea, vomit, diarrhea and constipation. Allergies: None Past surgical history: Hernia Repair and pneumothorax Social history: No alcohol, tobacco or drug use reported PMD - Dr. Hiren Pike <Karri Solis - Last Filed: 05/11/16 15:35> - General Chief Complaint: Cold Symptoms Stated Complaint: FEVER 102.00 Time Seen by Provider: 05/11/16 14:17 Past History - Past Medical History Anemia: No Asthma: No Cancer: No Cardiac Disorders: Yes (MITRAL & TRICUSPID VALVE PROLAPSE) CVA: No COPD: No CHF: No Dementia: No Diabetes: No GI Disorders: Yes (GERD, SIDDIQUI'S ESOPHAGUS,) Disorders: Yes (B/L RENAL CYSTS.) HTN: No Hypercholesterolemia: No Liver Disease: No Psychiatric Problems: Yes (SCHIZO,) Seizures: No Thyroid Disease: No - Surgical History Abdominal Surgery: Yes (HERNIA REPAIR) Cardiac Surgery: No Lung Surgery: Yes (PNEUMOTHORAX) Neurologic Surgery: No - Immunization History Immunization Up to Date: Yes - Psycho/Social/Smoking Cessation Hx Anxiety: No Suicidal Ideation: No Smoking History: Never smoked Have you smoked in the past 12 months: No If you are a former smoker, when did you quit?: 1999 Hx Alcohol Use: No Drug/Substance Use Hx: No Substance Use Type: None Hx Substance Use Treatment: No <Yumiko Vargas - Last Filed: 05/11/16 15:21> <Karri Solis - Last Filed: 05/11/16 15:35> - Past Medical History Allergies/Adverse Reactions: Allergies Allergy/AdvReac Type Severity Reaction Status Date / Time chicken derived Allergy Vomiting Verified 05/11/16 14:22 egg Allergy Vomiting Verified 05/11/16 14:22 Home Medications: Ambulatory Orders Desmopressin Acetate 0.1 mg PO BID #60 tablet 07/26/14 Bupropion HCl [Wellbutrin Xl -] 150 mg PO DAILY 05/23/15 Clonazepam [Klonopin -] 0.5 mg PO HS PRN 05/23/15 Clozapine 200 mg PO BID 05/23/15 Ferrous Sulfate [Feosol] 325 mg PO BID 05/23/15 [place] Carbonate [Eskalith -] 300 mg PO DAILY 05/23/15 Mag Hydrox/Al Hydrox/Simeth [Antacid-Antigas Liquid] 355 ml PO PRN 05/23/15 Megestrol Acetate Oral Susp [Megace Oral Suspension -] 800 mg PO DAILY 05/23/15 Valproate Sodium Liquid [Depakene Oral Solution -] 500 mg PO BID 05/23/15 Omeprazole [Prilosec (RX)] 40 mg PO BID #0 05/26/15 Bromocriptine Mesylate 2.5 tab PO HS 03/19/16 Loratadine 10 tab PO DAILY 03/19/16 Docusate Sodium [Colace -] 100 mg PO TID #90 capsule 03/22/16 Aspirin [ASA -] 81 mg PO DAILY #30 tab.chew 03/23/16 Simvastatin [Zocor -] 20 mg PO HS #30 tablet 03/23/16 Acetaminophen [Tylenol] 650 mg PO QID PRN #30 tablet 04/12/16 Review of Systems - Review of Systems Able to Perform ROS?: Yes Comments:: 05/11/16 15:33 GENERAL/CONSTITUTIONAL: +Fever. No chills. No weakness. HEAD, EYES, EARS, NOSE AND THROAT: No change in vision. No ear pain or discharge. No sore throat. CARDIOVASCULAR: No chest pain or shortness of breath RESPIRATORY: +Cough. No wheezing, or hemoptysis. GASTROINTESTINAL: No nausea, vomiting, diarrhea or constipation. GENITOURINARY: No dysuria, frequency, or change in urination. MUSCULOSKELETAL: No joint or muscle swelling or pain. No neck or back pain. SKIN: No rash NEUROLOGIC: No headache, vertigo, loss of consciousness, or change in strength/ sensation. ENDOCRINE: No increased thirst. No abnormal weight change HEMATOLOGIC/LYMPHATIC: No anemia, easy bleeding, or history of blood clots. ALLERGIC/IMMUNOLOGIC: No hives or skin allergy. <Karri Solis - Last Filed: 05/11/16 15:35> *Physical Exam - Vital Signs Last Vital Signs Temp Pulse Resp BP Pulse Ox 102.7 F H 50 L 20 124/80 95 05/11/16 14:19 05/11/16 14:19 05/11/16 14:19 05/11/16 14:19 05/11/16 14:19 <Yumiko Vargas - Last Filed: 05/11/16 15:21> - Vital Signs Last Vital Signs Temp Pulse Resp BP Pulse Ox 102.7 F H 50 L 20 124/80 95 05/11/16 14:19 05/11/16 14:19 05/11/16 14:19 05/11/16 14:19 05/11/16 14:19 - Physical Exam Comments: 05/11/16 15:33 GENERAL: Awake, alert, and fully oriented, in no acute distress HEAD: No signs of trauma, normocephalic, atraumatic EYES: PERRLA, EOMI, sclera anicteric, conjunctiva clear ENT: Auricles normal inspection, hearing grossly normal, nares patent, oropharynx clear without exudates. Moist mucosa NECK: Normal ROM, supple, no lymphadenopathy, JVD, or masses LUNGS: No distress, speaks full sentences, clear to auscultation bilaterally HEART: Regular rate and rhythm, normal S1 and S2, no murmurs, rubs or gallops, peripheral pulses normal and equal bilaterally. ABDOMEN: Soft, nontender, normoactive bowel sounds. No guarding, no rebound. No masses EXTREMITIES: Normal inspection, Normal range of motion, no edema. No clubbing or cyanosis. NEUROLOGICAL: Cranial nerves II through XII grossly intact. Normal speech, no focal sensorimotor deficits SKIN: Warm, Dry, normal turgor, no rashes or lesions noted. <Karri Solis - Last Filed: 05/11/16 15:35> ED Treatment Course - ADDITIONAL ORDERS Additional order review: Laboratory Results 05/11/16 15:12 VBG pH 7.39 POC VBG pCO2 47.1 POC VBG pO2 15.9 L* Mixed VBG HCO3 28.0 H - Medications Given in the ED: ED Medications Discontinued Medications Generic Name Dose Route Start Last Admin Trade Name Martina PRN Reason Stop Dose Admin Acetaminophen 975 mg 05/11/16 14:24 05/11/16 15:24 Tylenol - PO 05/11/16 14:25 975 mg ONCE ONE Administration Sodium Chloride 1,000 mls @ 1,000 mls/hr 05/11/16 14:23 05/11/16 15:26 Normal Saline - IV 05/11/16 15:22 1,000 mls/hr ASDIR STA Administration <Karri Solis - Last Filed: 05/11/16 15:35> Medical Decision Making - Medical Decision Making 05/11/16 15:21 50-year-old male with history of mental retardation, Siddiqui's esophagus, seizure disorder who presents to the emergency department with cough and fever to 102. Differential diagnosis includes but is not limited to: Influenza, pneumonia, UTI, sepsis, servers, dehydration, electrolyte abnormality, toxic/ metabolic derangement. Plan: 1. Labs 2. Urine 3. Chest x-ray 4. Influenza PCR 5. IV fluids for hydration 6. Observe and reevaluate 7. Antipyretics <Yumiko Vargas - Last Filed: 05/11/16 15:21> *DC/Admit/Observation/Transfer - Attestations Physician Attestion: 05/11/16 15:22 I, Dr. Yumiko Vargas, attest that the scribes documentation that appears above has been prepared under my direction and personally reviewed by me in its entirety. I confirmed that the note above accurately reflects all work, treatment, procedures, and medical decision-making performed by me. <Yumiko Vargas - Last Filed: 05/11/16 15:21> - Attestations Scribe Attestion: 05/11/16 15:34 Documentation prepared by Karri Solis, acting as medical accountant for Yumiko Vargas MD <Karri Solis - Last Filed: 05/11/16 15:35> Diagnosis at time of Disposition: Fever
[2016-05-11 15:42] LABS: BASOPHIL 0.3 % (0-2.0); EOSINOPHIL 0.1 % (0-4.5); MCH 29.2 pg (25.7-33.7); MCHC 33.9 g/dl (32.0-35.9); MEAN CELL VOLUME 86.2 fl (80-96); MEAN PLT VOLUME 8.4 fl (7.5-11.1); NEUTROPHILS 81.6 % (42.8-82.8); PLATELET COUNT 164 K/MM3 (134-434); RDW 14.8 % (11.9-15.9); WHITE BLOOD COUNT 6.4 K/mm3 (4.0-10.0)
[2016-05-11 15:57] LABS: INR 1.08 (0.82-1.09); PROTHROMBIN TIME (PATIENT) 11.9 SEC (9.98-11.88)
[2016-05-11 15:59] LABS: ACTIVATED PTT 34.8 SECONDS (26.9-34.4)
[2016-05-11 16:09] LABS: ALBUMIN 2.9 g/dl (3.4-5.0); ANION GAP 13 (8-16); BILIRUBIN,TOTAL 0.3 mg/dL (0.2-1.0); CALCIUM 8.4 mg/dL (8.5-10.1); CO2 26 mmol/L (21-32); GLUCOSE,RANDOM 95 mg/dL (74-106); SGOT/AST 31 U/L (15-37); SGPT/ALT 24 U/L (12-78); TOT PROT 7.6 g/dl (6.4-8.2)
[2016-05-11 16:11] LABS: ALK PHOS 63 U/L (45-117); TROPONIN I 0.02 ng/ml (0.00-0.05)
[2016-05-11] MEDS ORDERED: LEVOFLOXACIN 750 MG IVPB 150 ML IVPB ONE ×2 (16:38→17:24)
[2016-05-11] MEDS ORDERED: OSELTAMIVIR PHOSPHATE 75 MG CAPSULE PO ONE (18:05)
--- NOTE | 2016-05-11 18:11 | PDOC ---
*Physical Exam - Vital Signs Last Vital Signs Temp Pulse Resp BP Pulse Ox 102.7 F H 50 L 20 124/80 95 05/11/16 14:19 05/11/16 14:19 05/11/16 14:19 05/11/16 14:19 05/11/16 14:19 ED Treatment Course - LABORATORY CBC & Chemistry Diagram: 05/11/16 15:30 05/11/16 15:30 - ADDITIONAL ORDERS Additional order review: Laboratory Results 05/11/16 05/11/16 05/11/16 15:50 15:30 15:30 INR 1.08 PTT (Actin FS) 34.8 H VBG pH POC VBG pCO2 POC VBG pO2 Mixed VBG HCO3 Sodium 137 Potassium 4.2 Chloride 98 Carbon Dioxide 26 Anion Gap 13 BUN 9 D Creatinine 1.0 D Creat Clearance w eGFR > 60 Random Glucose 95 Lactic Acid 1.181 Calcium 8.4 L Total Bilirubin 0.3 AST 31 D ALT 24 D Alkaline Phosphatase 63 Creatine Kinase 101 Troponin I 0.02 Total Protein 7.6 D Albumin 2.9 L D 05/11/16 15:12 INR PTT (Actin FS) VBG pH 7.39 POC VBG pCO2 47.1 POC VBG pO2 15.9 L* Mixed VBG HCO3 28.0 H Sodium Potassium Chloride Carbon Dioxide Anion Gap BUN Creatinine Creat Clearance w eGFR Random Glucose Lactic Acid Calcium Total Bilirubin AST ALT Alkaline Phosphatase Creatine Kinase Troponin I Total Protein Albumin 05/11/16 15:30 Influenza Types A,B Antigen (HUSSEIN) - Final Nasopharyngeal Swab - Final 05/11/16 15:30 RBC 4.18 D MCV 86.2 MCHC 33.9 RDW 14.8 MPV 8.4 D Neutrophils % 81.6 D Lymphocytes % 5.5 L D Monocytes % 12.5 H Eosinophils % 0.1 D Basophils % 0.3 - Medications Given in the ED: ED Medications Discontinued Medications Generic Name Dose Route Start Last Admin Trade Name Freq PRN Reason Stop Dose Admin Acetaminophen 975 mg 05/11/16 14:24 05/11/16 15:24 Tylenol - PO 05/11/16 14:25 975 mg ONCE ONE Administration Sodium Chloride 1,000 mls @ 1,000 mls/hr 05/11/16 14:23 05/11/16 15:26 Normal Saline - IV 05/11/16 15:22 1,000 mls/hr ASDIR STA Administration Levofloxacin 150 mls @ 100 mls/hr 05/11/16 16:38 05/11/16 17:27 Levaquin 750 Mg Premixed Ivpb - IVPB 05/11/16 18:07 100 mls/hr ONCE ONE Administration Medical Decision Making - Medical Decision Making 05/11/16 18:11 pt is POSITIVE INFLUENZA A -will start tamiflu -paged Dr Hiren Ro and spoke w Dr Chana Veloz. She will follow pt in the office -I spoke w Mary Grace who is the nurse in residence a this skilled nursing and I reviewed the labs w her.RX sent to [facility] - 2 sets of negative cardiac enzymes 05/11/16 22:38 *DC/Admit/Observation/Transfer Diagnosis at time of Disposition: Fever - Prescriptions Prescriptions: Oseltamivir Phosphate [Tamiflu -] 75 mg PO BID #10 capsule
[2016-05-11] MEDS ORDERED: OSELTAMIVIR PHOSPHATE 75 MG CAPSULE ONE (18:56)
[2016-05-11 19:46] VITALS: BP 104/69; PULSE 70
[2016-05-11 20:10] LABS: TROPONIN I < 0.02 ng/ml (0.00-0.05)
--- NOTE | 2016-05-12 13:57 | EKG ---
Test Reason : Blood Pressure : / mmHG Vent. Rate : 102 BPM Atrial Rate : 102 BPM P-R Int : 128 ms QRS Dur : 086 ms QT Int : 320 ms P-R-T Axes : 079 085 047 degrees QTc Int : 417 ms SINUS TACHYCARDIA NONSPECIFIC T WAVE ABNORMALITY ABNORMAL ECG WHEN COMPARED WITH ECG OF 31-MAR-2016 19:37, NON-SPECIFIC CHANGE IN ST SEGMENT IN INFERIOR LEADS NON-SPECIFIC CHANGE IN ST SEGMENT IN ANTERIOR LEADS INVERTED T WAVES HAVE REPLACED NONSPECIFIC T WAVE ABNORMALITY IN ANTERIOR LEADS Confirmed by DAVID JOHN, SONY ([id number]) on 05/12/2016 1:57:40 PM Referred By: Confirmed By:SONY HERNANDEZ MD
== END 2016-05-11 20:39 | disposition home or self-care (01) ==
LOC: JER 14:15
PROC: 3E0337Z Introduction of Electrolytic and Water Balance Substance into Peripheral Vein, Percutaneous Approach (ICD-10-PCS; principal; 2016-05-11)
PROC: 3E03329 Introduction of Other Anti-infective into Peripheral Vein, Percutaneous Approach (ICD-10-PCS; 2016-05-11)
DX: J09.X2 Influenza due to identified novel influenza A virus with other respiratory manifestations (principal); F20.9 Schizophrenia, unspecified; F70 Mild intellectual disabilities; F31.9 Bipolar disorder, unspecified; I34.1 Nonrheumatic mitral (valve) prolapse; G40.909 Epilepsy, unspecified, not intractable, without status epilepticus
CPT/HCPCS: 36415; 71010-TC; 80053; 82550; 82803; 83605; 84484; 85025; 85610; 85730; 86850; 86900; 86901; 87040; 87804; 93005; 93010; 96361; 96365; 99282-25

== ENCOUNTER 2016-11-18 16:16 | Emergency (ER) | payer OTHER ==
[2016-11-18 16:23] VITALS: BP 137/82; PULSE 95; TEMP 98.3; BMI 20.7
[2016-11-18] MEDS ORDERED: IBUPROFEN 600 MG TABLET (FP) PO ONE ×2 (17:00→17:09)
--- NOTE | 2016-11-18 17:00 | PDOC ---
History of Present Illness - General Chief Complaint: Pain Stated Complaint: SWELLING Time Seen by Provider: 11/18/16 16:51 - History of Present Illness Initial Comments: 11/18/16 17:16 Pt. is a 51 y/o male who presents to the ED with R hip swelling. Pt. states that he banged his hip against a table in the dining gray. Immediately the area swelled and became painful to touch. He states that he can walk without pain. He denies further leg pain. Denies numbness, weakness, tingling of the R leg. Denies fevers, chills, nausea, vomiting and diarrhea. Past History - Travel Traveled outside of the country in the last 30 days: No Close contact w/someone who was outside of country & ill: No - Past Medical History Allergies/Adverse Reactions: Allergies Allergy/AdvReac Type Severity Reaction Status Date / Time chicken derived Allergy Vomiting Verified 11/18/16 16:19 egg Allergy Vomiting Verified 11/18/16 16:19 No Known Drug Allergies Allergy Verified 11/18/16 16:19 Home Medications: Ambulatory Orders Desmopressin Acetate 0.1 mg PO BID #60 tablet 07/26/14 Bupropion HCl [Wellbutrin Xl -] 150 mg PO DAILY 05/23/15 Clonazepam [Klonopin -] 0.5 mg PO HS PRN 05/23/15 Clozapine 200 mg PO BID 05/23/15 Ferrous Sulfate [Feosol] 325 mg PO BID 05/23/15 [place] Carbonate [Eskalith -] 300 mg PO DAILY 05/23/15 Mag Hydrox/Al Hydrox/Simeth [Antacid-[place] Liquid] 355 ml PO PRN 05/23/15 Megestrol Acetate Oral Susp [Megace Oral Suspension -] 800 mg PO DAILY 05/23/15 Valproate Sodium Liquid [Depakene Oral Solution -] 500 mg PO BID 05/23/15 Omeprazole [Prilosec (RX)] 40 mg PO BID #0 05/26/15 Bromocriptine Mesylate 2.5 tab PO HS 03/19/16 Loratadine 10 tab PO DAILY 03/19/16 Docusate Sodium [Colace -] 100 mg PO TID #90 capsule 03/22/16 Aspirin [ASA -] 81 mg PO DAILY #30 tab.chew 03/23/16 Simvastatin [Zocor -] 20 mg PO HS #30 tablet 03/23/16 Acetaminophen [Tylenol] 650 mg PO QID PRN #30 tablet 04/12/16 Oseltamivir Phosphate [Tamiflu -] 75 mg PO BID #10 capsule 05/11/16 Ibuprofen 600 mg PO TID #21 tablet 11/18/16 Anemia: No Asthma: No Cancer: No Cardiac Disorders: Yes (MITRAL & TRICUSPID VALVE PROLAPSE) CVA: No COPD: No CHF: No Dementia: No Diabetes: No GI Disorders: Yes (GERD, VIVAR'S ESOPHAGUS,) Disorders: Yes (B/L RENAL CYSTS.) HTN: No Hypercholesterolemia: No Liver Disease: No Psychiatric Problems: Yes (SCHIZO,) Seizures: No Thyroid Disease: No Other medical history: MR - Surgical History Abdominal Surgery: Yes (HERNIA REPAIR) Cardiac Surgery: No Lung Surgery: Yes (PNEUMOTHORAX) Neurologic Surgery: No - Immunization History Immunization Up to Date: Yes - Psycho/Social/Smoking Cessation Hx Anxiety: No Suicidal Ideation: No Smoking History: Never smoked Have you smoked in the past 12 months: No If you are a former smoker, when did you quit?: 1999 Information on smoking cessation initiated: No Hx Alcohol Use: No Drug/Substance Use Hx: No Substance Use Type: None Hx Substance Use Treatment: No Review of Systems - Review of Systems Able to Perform ROS?: Yes Is the patient limited Slovak proficient: No Constitutional: No: Chills, Fever, Malaise, Weakness Musculoskeletal: Yes: Other (swelling of R hip). No: Joint Pain, Muscle Pain, Muscle Weakness Integumentary: Yes: Lumps (R hip) Neurological: No: Numbness, Paresthesia, Weakness, Unsteady Gait *Physical Exam - Vital Signs Last Vital Signs Temp Pulse Resp BP Pulse Ox 98.3 F 95 H 19 137/82 98 11/18/16 16:19 11/18/16 16:19 11/18/16 16:19 11/18/16 16:19 11/18/16 16:19 - Physical Exam General Appearance: Yes: Nourished, Appropriately Dressed. No: Apparent Distress Extremity: positive: Normal Capillary Refill, Normal Range of Motion, Tender (R hip), Swelling ([id number] round hematoma over the R hip). negative: Pelvis Stable Integumentary: positive: Normal Color, Dry, Warm. negative: Bruising Neurologic: positive: manager roofing II-XII NML intact, Fully Oriented, Alert, Normal Mood/ Affect, Normal Response, Motor Strength 07/16 Medical Decision Making - Medical Decision Making 11/18/16 17:24 Pt. is a 51 y/o male who presents with R hip swelling. On exam, appears to be a hematoma. However will obtain x-ray to r/o fracture. Will give Motrin for pain 11/18/16 17:43 X-ray is negative for any fracture. Diagnosis most likely hematoma. Will discharge home at this time. *DC/Admit/Observation/Transfer Diagnosis at time of Disposition: Hematoma of leg Qualifiers: Encounter type: initial encounter Laterality: left Qualified Code(s): S80.12XA - Contusion of left lower leg, initial encounter - Discharge Dispostion Disposition: HOME Condition at time of disposition: Good Admit: No - Prescriptions Prescriptions: Ibuprofen 600 mg PO TID #21 tablet - Referrals Referrals: Hiren Pike MD [Staff Physician] - - Patient Instructions Printed Discharge Instructions: DI for Hematoma (Bruise) Additional Instructions: Lupillo has a hematoma on his R hip. This is a bruise. He may take Ibuprofen as needed for pain, 600mg three times a day. A prescription was sent to the pharmacy. Ice the area 3-4 times a day for approximately 20 minutes at a time. Keep the leg elevated when possible. Follow up with your primary care doctor in one week. Return to the Emergency Department if you have worsening pain, fevers, chills, or any changes in your symptoms.
== END 2016-11-18 18:01 | disposition home or self-care (01) ==
LOC: JERFT 16:16
DX: S70.01XA Contusion of right hip, initial encounter (principal); W22.03XA Walked into furniture, initial encounter; Y93.89 Activity, other specified; Y92.098 Other place in other non-institutional residence as the place of occurrence of the external cause; I34.1 Nonrheumatic mitral (valve) prolapse; K21.9 Gastro-esophageal reflux disease without esophagitis; F20.9 Schizophrenia, unspecified; F79 Unspecified intellectual disabilities
CPT/HCPCS: 73523-TC; 99281-25

== ENCOUNTER 2020-10-08 11:16 | Emergency (ER) | payer OTHER ==
[2020-10-08] MEDS ORDERED: chlorproMAZINE HCL 25 MG/1 ML AMP IM ONE (11:25)
[2020-10-08] MEDS ORDERED: HALOPERIDOL LACTATE 5 MG/ML SYRINGE ONE ×4 (11:38→13:42)
[2020-10-08] MEDS ORDERED: HALOPERIDOL LACTATE 5 MG/ML IM ONE ×4 (11:38→13:42)
[2020-10-08 12:25] VITALS: TEMP 98; BMI 15.6
[2020-10-08] MEDS ORDERED: MIDAZOLAM HCL 2 MG/2 ML SINGLE DOSE VIAL ONE ×2 (13:53→14:34)
[2020-10-08] MEDS ORDERED: MIDAZOLAM HCL 2 MG/2 ML SINGLE DOSE VIAL IVPUSH ONE (14:12)
[2020-10-08 14:25] VITALS: BP 108/72; PULSE 70
== END 2020-10-08 18:46 | disposition home or self-care (01) ==
LOC: FER 11:16
PROC: 3E023GC Introduction of Other Therapeutic Substance into Muscle, Percutaneous Approach (ICD-10-PCS; principal; 2020-10-08)
PROC: 3E023GC Introduction of Other Therapeutic Substance into Muscle, Percutaneous Approach (ICD-10-PCS; 2020-10-08)
PROC: 3E023GC Introduction of Other Therapeutic Substance into Muscle, Percutaneous Approach (ICD-10-PCS; 2020-10-08)
PROC: 3E023GC Introduction of Other Therapeutic Substance into Muscle, Percutaneous Approach (ICD-10-PCS; 2020-10-08)
PROC: 3E023GC Introduction of Other Therapeutic Substance into Muscle, Percutaneous Approach (ICD-10-PCS; 2020-10-08)
PROC: 3E033NZ Introduction of Analgesics, Hypnotics, Sedatives into Peripheral Vein, Percutaneous Approach (ICD-10-PCS; 2020-10-08)
DX: S00.03XA Contusion of scalp, initial encounter (principal); W01.198A Fall on same level from slipping, tripping and stumbling with subsequent striking against other object, initial encounter; Y92.198 Other place in other specified residential institution as the place of occurrence of the external cause
CPT/HCPCS: 70450-TC; 72125-TC; 99284-25